=== PATIENT | male | born 1940 | race Caucasian/White ===

== ENCOUNTER 2020-10-24 06:38 | Outpatient (REF) | payer MEDICARE, SELFPAY ==
[2020-10-24 07:08] LABS: Red Cell Distribution Width 13.2 % (11.0-16.0)
[2020-10-24 07:10] LABS: Hematocrit 44.6 % (42-52); Mean Corpuscular HGB Conc 33.6 g/dl (31.0-36.0); Mean Corpuscular Hemoglobin 31.8 pg (27.0-33.0); Mean Corpuscular Volume 94.5 fL (80-98); Mean Platelet Volume 10.7 fL (9.4-12.4); Red Blood Count 4.72 X10*6/uL (4.60-5.80); White Blood Count 5.4 X10*3/uL (4.8-10.8)
[2020-10-24 07:13] LABS: Platelet Count 91 X10*3/uL (160-400)
[2020-10-24 07:14] LABS: Estimated Average Glucose 166 mg/dL; Hemoglobin A1c % 7.4 %
[2020-10-24 07:35] LABS: Alanine Aminotransferase 17 U/L (0-40); Albumin Level 3.9 g/dL (3.5-5.0); Alkaline Phosphatase 63 U/L (39-117); Anion Gap 11 (12-20); Aspartate Amino Transferase 19 U/L (5-37); Bilirubin Total 1.1 mg/dL (0.0-1.0); Blood Urea Nitrogen 25 mg/dL (9-16); Calcium 8.5 mg/dL (8.4-10.2); Carbon Dioxide 32 mmol/L (22-29); Chloride 101 mmol/L (96-108); Cholesterol 104 mg/dL; Estimated Glomerular Filt Rate > 60; Glucose Fasting 162 mg/dL (60-99); HDL Cholesterol 30 mg/dL; LDL Cholesterol Calculated 57 mg/dl; Potassium 3.8 mmol/l (3.3-5.1); Sodium 140 mmol/L (135-145); Total Protein 5.8 g/dL (6.5-8.0); Triglycerides 87 mg/dL
[2020-10-24 07:44] LABS: Appearance Urine CLEAR; Color Urine YELLOW; Glucose Urine UA NEG (NEG); Leukocyte Esterase Urine NEG (NEG); Nitrite Urine NEG (NEG); Specific Gravity - Urine 1.025 (1.005-1.025); Urine Blood TRACE (NEG); Urine Ketones NEG (NEG); Urine Protein NEG (NEG-TRACE)
[2020-10-24 07:50] LABS: Mucus Urine TRACE /LPF; RBC Urine 0-2 /HPF (0); Squamous Epithelial Cell Urine TRACE /LPF; WBC Urine 0 /HPF (0-4)
[2020-10-24 07:57] LABS: Thyroid Stimulating Hormone 0.93 uIU/mL (0.32-4.0)
== END 2020-10-24 06:39 | disposition home or self-care (01) ==
LOC: HO.LAB 06:38
PROVIDERS: Visit Provider Internal Medicine
DX: I10 Essential (primary) hypertension (principal); E78.00 Pure hypercholesterolemia, unspecified; E11.42 Type 2 diabetes mellitus with diabetic polyneuropathy; M48.061 Spinal stenosis, lumbar region without neurogenic claudication; Z79.4 Long term (current) use of insulin; Z85.46 Personal history of malignant neoplasm of prostate
CPT/HCPCS: 36415; 80053; 80061; 81001; 83036; 84443; 85027

== ENCOUNTER 2021-04-19 06:22 | Outpatient (REF) | payer MEDICARE, SELFPAY ==
[2021-04-19 07:10] LABS: Glucose Urine UA NEG (NEG); Leukocyte Esterase Urine NEG (NEG); Nitrite Urine NEG (NEG); PH 5.5 (5.0-8.0); Urine Blood NEG (NEG); Urine Ketones NEG (NEG); Urine Protein NEG (NEG-TRACE)
[2021-04-19 07:11] LABS: Appearance Urine HAZY; Color Urine YELLOW
[2021-04-19 07:11] LABS: Imm Gran Abs Auto 0.02 X10*3/uL (0.00-0.03); Imm Gran Pct Auto 0.3 % (0.0-0.4); MANUAL DIFF FLAG SCAN; PLT CLUMP 1; Red Cell Distribution Width 12.8 % (11.0-16.0); SCAN SMEAR FLAG 1
[2021-04-19 07:12] LABS: Basophils Percent Auto 0.7 % (0-2); Eosinophils Absolute Auto 0.2 X10*3/uL (0.0-0.4); Eosinophils Percent Auto 4.1 % (0-4); Hematocrit 45.6 % (42-52); Hemoglobin 15.6 g/dl (14.0-18.0); Lymphocytes Absolute Auto 1.1 X10*3/uL (1.2-4.9); Lymphocytes Percent Auto 18.8 % (20-40); Mean Corpuscular HGB Conc 34.2 g/dl (31.0-36.0); Mean Corpuscular Hemoglobin 32.2 pg (27.0-33.0); Mean Corpuscular Volume 94.2 fL (80-98); Mean Platelet Volume 11.3 fL (9.4-12.4); Monocytes Absolute Auto 0.5 X10*3/uL (0.1-1.2); Monocytes Percent Auto 8.4 % (2-11); Neutrophils Percent Auto 67.7 % (45-73); Red Blood Count 4.84 X10*6/uL (4.60-5.80); White Blood Count 5.9 X10*3/uL (4.8-10.8)
[2021-04-19 07:17] LABS: Estimated Average Glucose 157 mg/dL; Hemoglobin A1c % 7.1 %; Platelet Count 97 X10*3/uL (160-400)
[2021-04-19 07:32] LABS: Alanine Aminotransferase 19 U/L (0-40); Alkaline Phosphatase 66 U/L (39-117); Anion Gap 15 (12-20); Aspartate Amino Transferase 27 U/L (5-37); Bilirubin Total 1.6 mg/dL (0.0-1.0); Blood Urea Nitrogen 22 mg/dL (9-16); Carbon Dioxide 29 mmol/L (22-29); Chloride 101 mmol/L (96-108); Cholesterol 98 mg/dL; Estimated Glomerular Filt Rate > 60; Glucose Random 139 mg/dL (60-115); HDL Cholesterol 29 mg/dL; LDL Cholesterol Calculated 55 mg/dl; Potassium 4.3 mmol/L (3.3-5.1); Sodium 141 mmol/L (135-145); Triglycerides 73 mg/dL
[2021-04-19 08:05] LABS: Creatinine Urine 207.09 mg/dL; Microalbum/Creatinine Ratio Ur 5.3 ug/mg cr
[2021-04-19 08:28] LABS: Vitamin B12 483 pg/mL (200-900)
== END 2021-04-19 06:23 | disposition home or self-care (01) ==
LOC: HO.LAB 06:22
PROVIDERS: Absent Provider Internal Medicine Interventional Cardiology; PCP Internal Medicine; Visit Provider Internal Medicine
DX: E11.42 Type 2 diabetes mellitus with diabetic polyneuropathy (principal); D69.6 Thrombocytopenia, unspecified; C61 Malignant neoplasm of prostate; I25.10 Atherosclerotic heart disease of native coronary artery without angina pectoris; Z79.4 Long term (current) use of insulin
CPT/HCPCS: 36415; 80053; 80061; 81003; 82043; 82607; 83036; 84443; 85025

== ENCOUNTER 2022-02-16 17:28 | Emergency (ER) | payer MEDICARE, SELFPAY ==
--- NOTE | ~2022-02-16 | XR_ITS ---
EXAMINATION: XR CHEST CLINICAL INFORMATION: Flu + COMPARISON: Chest x-ray 04/14/2014 TECHNIQUE: Frontal portable view of the chest was obtained. 7:02 PM FINDINGS: Lungs are clear. No pulmonary vascular congestion. There is no pleural effusion. The heart size is normal. The cardiac and mediastinal contours are normal. There are calcifications of the thoracic aorta. There are multilevel degenerative changes of dorsal spine. XR/XR chest 1V IMPRESSION: Unremarkable examination.
[2022-02-16 17:32] VITALS: BP 137/53; PULSE 110; RESP 18; TEMP 38.3; O2SAT 96; BMI 28.3
[2022-02-16 18:00] VITALS: BP 129/52; PULSE 96; RESP 16; TEMP 38.1; O2SAT 95
[2022-02-16 18:05] LABS: Anion Gap 11 (12-20); Blood Urea Nitrogen 22 mg/dL (9-16); Calcium 8.5 mg/dL (8.4-10.2); Carbon Dioxide 30 mmol/L (22-29); Chloride 98 mmol/L (96-108); Creatinine Clr Calc Pharmacy 36.7; Estimated Glomerular Filt Rate 46; Glucose Random 254 mg/dL (60-115); Potassium 4.1 mmol/L (3.3-5.1); Sodium 135 mmol/L (135-145)
[2022-02-16 18:08] LABS: COVID-19 Test Negative (Negative); IDNOW Serial# 16C4AD1C; Influenza A Positive (Negative); Influenza B2 Negative (Negative)
[2022-02-16 18:09] LABS: PLT CLUMP 1; Red Cell Distribution Width 13.2 % (11.0-16.0); SCAN SMEAR FLAG 1
[2022-02-16 18:11] LABS: Basophils Percent Auto 0.3 % (0-2); Eosinophils Percent Auto 0.1 % (0-4); Hematocrit 45.7 % (42.0-52.0); Hemoglobin 15.4 g/dl (14.0-18.0); Imm Gran Abs Auto 0.02 X10*3/uL (0.00-0.03); Imm Gran Pct Auto 0.3 % (0.0-0.4); Lymphocytes Absolute Auto 0.5 X10*3/uL (1.2-4.9); Lymphocytes Percent Auto 7.7 % (20-40); MANUAL DIFF FLAG SCAN; Mean Corpuscular HGB Conc 33.7 g/dl (31.0-36.0); Mean Platelet Volume 11.7 fL (9.4-12.4); Monocytes Absolute Auto 0.7 X10*3/uL (0.1-1.2); Monocytes Percent Auto 9.7 % (2-11); Neutrophils Absolute Auto 5.8 x10*3/uL (2.0-8.3); Neutrophils Percent Auto 81.9 % (45-73); Red Blood Count 4.81 X10*6/uL (4.60-5.80)
[2022-02-16 18:23] LABS: Platelet Count 77 X10*3/uL (160-400)
[2022-02-16 18:27] LABS: SLIDE REVIEW VERIFIED
[2022-02-16] MEDS: Acetaminophen 325 MG TABLET 650 MG PO (19:47)
[2022-02-16] MEDS: ondansetron HCL 4 MG/2 ML VIAL IVPUSH (19:51)
[2022-02-16] MEDS: 0.9 % Sodium Chloride 1,000 ML 999 ML IV (19:52)
--- NOTE | 2022-02-16 19:57 | ED_ITS ---
HPI - General Adult General Chief complaint: General Medical Stated complaint: flu symptoms, pt. feels cold Time Seen by Provider: 02/16/22 18:55 Source: patient and family Mode of arrival: ambulatory Limitations: no limitations History of Present Illness HPI narrative: Patient only been vaccinated against COVID and flu been having nasal congestion nausea dry cough and fever with body aches for last 3 days no vomiting no diarrhea no abdominal pain Related Data Allergies Allergy/AdvReac Type Severity Reaction Status Date / Time No Known Allergies Allergy Verified 02/16/22 17:31 Review of Systems Review of Systems: Yes all other systems are reviewed and are negative [facility] Social History Social History Advance Directives: No Physical Exam ED Vital Signs: Vital Signs - 24 hr 02/16/22 17:32 02/16/22 18:00 02/16/22 20:49 Temperature 101 F H 100.5 F H 98.5 F Pulse Rate 110 H 96 77 Respiratory Rate 18 16 16 Blood Pressure 137/53 L 129/52 L Pulse Oximetry 96 95 94 BMI result Body Mass Index 28.3 Appearance: Alert. Oriented X3. No acute distress. Eyes: No pallor/ icterus ENT: Pharynx normal. Oral Mucosa moist Neck: Normal inspection. Neck supple. CVS: Normal heart rate and rhythm. Pulses normal. Respiratory: No respiratory distress. Equal air entry bilateral, no wheezing/rales/rhonchi Abdomen: Soft and nontender. Bowel sounds are present, no mass palpable, no CVA tenderness Skin: Skin warm and dry. Normal skin color. Normal skin turgor. Extremities: No lower extremity edema. No calf tenderness Neuro: Oriented X 3. No motor deficit. Medical Decision Making [facility] Narrative Medical decision making narrative: Patient with influenza a with dehydration slight Xavi I received IV fluids feeling much better chest x-ray negative for infiltrate will discharge patient home Lab Data Lab results reviewed: Yes I reviewed the patient's lab results. Result diagrams: 02/16/22 17:41 02/16/22 17:41 Labs: Lab Results 02/16/22 02/16/22 02/16/22 Range/Units 17:41 17:41 17:41 WBC 7.0 (4.8-10.8) X10*3/uL RBC 4.81 (4.60-5.80) X10*6/uL Hgb 15.4 (14.0-18.0) g/dl Hct 45.7 (42.0-52.0) % MCV 95.0 (80.0-98.0) fL MCH 32.0 (27.0-33.0) pg MCHC 33.7 (31.0-36.0) g/dl RDW 13.2 (11.0-16.0) % Plt Count 77 L (160-400) X10*3/uL MPV 11.7 (9.4-12.4) fL Immature Gran % (Auto) 0.3 (0.0-0.4) % Neut % (Auto) 81.9 H (45-73) % Lymph % (Auto) 7.7 L (20-40) % [place] % (Auto) 9.7 (2-11) % Eos % (Auto) 0.1 (0-4) % Baso % (Auto) 0.3 (0-2) % Lymph # (Auto) 0.5 L (1.2-4.9) X10*3/uL [place] # (Auto) 0.7 (0.1-1.2) X10*3/uL Eos # (Auto) 0.0 (0.0-0.4) X10*3/uL Baso # (Auto) 0.0 (0.0-0.2) X10*3/uL Abs Immat Gran (auto) 0.02 (0.00-0.03) X10*3/uL Absolute Neuts (auto) 5.8 (2.0-8.3) x10*3/uL Absolute Nucleated RBC 0.000 (0.0-0.012) X10*3/uL Nucleated RBC % (auto) 0.0 (0.0-0.2) /100WBC Smear Tech's Comments VERIFIED Sodium 135 (135-145) mmol/L Potassium 4.1 (3.3-5.1) mmol/L Chloride 98 (96-108) mmol/L Carbon Dioxide 30 H (22-29) mmol/L Anion Gap 11 L (12-20) BUN 22 H (9-16) mg/dL Creatinine 1.46 H (0.5-1.4) mg/dL Estim Creat Clear Calc 36.7 Estimated GFR 46 Random Glucose 254 H D (60-115) mg/dL Calcium 8.5 (8.4-10.2) mg/dL COVID-19 (JOANN) (Negative) COVID-19 Clin Com Influenza Type A (HIRAL) Positive A (Negative) Influenza Type B (HIRAL) Negative (Negative) Influenza A & B Note See Note 02/16/22 Range/Units 17:41 WBC (4.8-10.8) X10*3/uL RBC (4.60-5.80) X10*6/uL Hgb (14.0-18.0) g/dl Hct (42.0-52.0) % MCV (80.0-98.0) fL MCH (27.0-33.0) pg MCHC (31.0-36.0) g/dl RDW (11.0-16.0) % Plt Count (160-400) X10*3/uL MPV (9.4-12.4) fL Immature Gran % (Auto) (0.0-0.4) % Neut % (Auto) (45-73) % Lymph % (Auto) (20-40) % [place] % (Auto) (2-11) % Eos % (Auto) (0-4) % Baso % (Auto) (0-2) % Lymph # (Auto) (1.2-4.9) X10*3/uL [place] # (Auto) (0.1-1.2) X10*3/uL Eos # (Auto) (0.0-0.4) X10*3/uL Baso # (Auto) (0.0-0.2) X10*3/uL Abs Immat Gran (auto) (0.00-0.03) X10*3/uL Absolute Neuts (auto) (2.0-8.3) x10*3/uL Absolute Nucleated RBC (0.0-0.012) X10*3/uL Nucleated RBC % (auto) (0.0-0.2) /100WBC Smear Tech's Comments Sodium (135-145) mmol/L Potassium (3.3-5.1) mmol/L Chloride (96-108) mmol/L Carbon Dioxide (22-29) mmol/L Anion Gap (12-20) BUN (9-16) mg/dL Creatinine (0.5-1.4) mg/dL Estim Creat Clear Calc Estimated GFR Random Glucose (60-115) mg/dL Calcium (8.4-10.2) mg/dL COVID-19 (JOANN) Negative (Negative) COVID-19 Clin Com See Note Influenza Type A (HIRAL) (Negative) Influenza Type B (HIRAL) (Negative) Influenza A & B Note Discharge Plan Discharge Clinical Impression: Influenza A Patient Disposition: Home, Self-Care Instructions: Influenza (ED) Additional Instructions: Keep hydrated drink plenty of fluids Tylenol/ Motrin for fever Follow up with PCP not better Interventions: ED Discharge Assessment Last Done: 02/16/22 22:04 Discharge Date/Time: 02/16/22 22:05
[2022-02-16 20:49] VITALS: PULSE 77; RESP 16; TEMP 36.9; O2SAT 94
== END 2022-02-16 22:05 | disposition home or self-care (01) ==
PROVIDERS: Emergency Provider Internal Medicine
DX: J11.1 Influenza due to unidentified influenza virus with other respiratory manifestations (principal); R50.9 Fever, unspecified; Z20.822 Contact with and (suspected) exposure to COVID-19
CPT/HCPCS: 36415; 71045; 80048; 85025; 87502; 87635; 96361; 96374; 99284; J2405

== ENCOUNTER 2022-04-14 07:00 | Outpatient (REF) | payer MEDICARE, SELFPAY ==
[2022-04-14 07:25] LABS: MANUAL DIFF FLAG NO
[2022-04-14 07:44] LABS: Basophils Percent Auto 0.8 % (0-2); Eosinophils Absolute Auto 0.2 X10*3/uL (0.0-0.4); Hematocrit 45.4 % (42.0-52.0); Hemoglobin 15.1 g/dl (14.0-18.0); Imm Gran Abs Auto 0.01 X10*3/uL (0.00-0.03); Imm Gran Pct Auto 0.2 % (0.0-0.4); Lymphocytes Percent Auto 19.3 % (20-40); Mean Corpuscular HGB Conc 33.3 g/dl (31.0-36.0); Mean Corpuscular Hemoglobin 31.4 pg (27.0-33.0); Mean Corpuscular Volume 94.4 fL (80.0-98.0); Mean Platelet Volume 11.9 fL (9.4-12.4); Monocytes Absolute Auto 0.6 X10*3/uL (0.1-1.2); Monocytes Percent Auto 11.2 % (2-11); Neutrophils Absolute Auto 3.5 x10*3/uL (2.0-8.3); Neutrophils Percent Auto 65.5 % (45-73); Red Blood Count 4.81 X10*6/uL (4.60-5.80); Red Cell Distribution Width 13.8 % (11.0-16.0); White Blood Count 5.3 X10*3/uL (4.8-10.8)
[2022-04-14 07:49] LABS: Platelet Count 97 X10*3/uL (160-400)
[2022-04-14 07:55] LABS: Appearance Urine CLEAR; Color Urine YELLOW; Glucose Urine UA NEG (NEG); Leukocyte Esterase Urine NEG (NEG); Nitrite Urine NEG (NEG); Specific Gravity - Urine 1.015 (1.005-1.025); Urine Blood NEG (NEG); Urine Ketones NEG (NEG); Urine Protein NEG (NEG-TRACE)
[2022-04-14 08:05] LABS: WBC Urine 0-2 /HPF (0-4)
[2022-04-14 08:06] LABS: RBC Urine 0 /HPF (0); Renal Epithelial Cells Urine TRACE /LPF
[2022-04-14 08:12] LABS: Estimated Average Glucose 157 mg/dL; Hemoglobin A1c % 7.1 %
[2022-04-14 08:17] LABS: Creatinine Urine 129.05 mg/dL; Microalbum/Creatinine Ratio Ur 4.6 ug/mg cr
[2022-04-14 08:18] LABS: Alanine Aminotransferase 17 U/L (0-40); Albumin Level 3.7 g/dL (3.5-5.0); Alkaline Phosphatase 68 U/L (39-117); Anion Gap 9 (12-20); Aspartate Amino Transferase 21 U/L (5-37); Bilirubin Total 0.9 mg/dL (0.0-1.0); Blood Urea Nitrogen 20 mg/dL (9-16); Carbon Dioxide 32 mmol/L (22-29); Chloride 102 mmol/L (96-108); Cholesterol 97 mg/dL; Estimated Glomerular Filt Rate 58; Glucose Fasting 139 mg/dL (60-99); HDL Cholesterol 31 mg/dL; LDL Cholesterol Calculated 56 mg/dl; Potassium 3.8 mmol/L (3.3-5.1); Sodium 139 mmol/L (135-145); Total Protein 5.8 g/dL (6.5-8.0); Triglycerides 51 mg/dL
[2022-04-14 08:32] LABS: Free T4 (Free Thyroxine) 0.99 ng/dL (0.71-1.85); Thyroid Stimulating Hormone 1.15 uIU/mL (0.32-4.0)
[2022-04-16 06:33] LABS: Folate 10.3 ng/mL (> or = 4.0); Vitamin B12 427 pg/mL (200-900)
== END 2022-04-14 07:01 | disposition home or self-care (01) ==
LOC: HO.LAB 07:00
PROVIDERS: PCP Internal Medicine; Visit Provider Internal Medicine
DX: E11.42 Type 2 diabetes mellitus with diabetic polyneuropathy (principal); D69.6 Thrombocytopenia, unspecified; I25.10 Atherosclerotic heart disease of native coronary artery without angina pectoris; I10 Essential (primary) hypertension; E78.00 Pure hypercholesterolemia, unspecified; R35.1 Nocturia; R41.3 Other amnesia; Z79.4 Long term (current) use of insulin
CPT/HCPCS: 36415; 80053; 80061; 81001; 82043; 82607; 82746; 83036; 84439; 84443; 85025; 87086

== ENCOUNTER 2022-07-20 07:58 | Outpatient (REF) | payer MEDICARE, SELFPAY ==
[2022-07-20 08:14] LABS: MANUAL DIFF FLAG NO
[2022-07-20 08:59] LABS: Basophils Percent Auto 0.7 % (0-2); Eosinophils Absolute Auto 0.1 X10*3/uL (0.0-0.4); Eosinophils Percent Auto 2.3 % (0-4); Hematocrit 44.2 % (42.0-52.0); Hemoglobin 15.2 g/dl (14.0-18.0); Imm Gran Abs Auto 0.02 X10*3/uL (0.00-0.03); Imm Gran Pct Auto 0.4 % (0.0-0.4); Lymphocytes Percent Auto 17.4 % (20-40); Mean Corpuscular HGB Conc 34.4 g/dl (31.0-36.0); Mean Corpuscular Hemoglobin 32.5 pg (27.0-33.0); Mean Corpuscular Volume 94.4 fL (80.0-98.0); Monocytes Absolute Auto 0.5 X10*3/uL (0.1-1.2); Monocytes Percent Auto 9.5 % (2-11); Neutrophils Absolute Auto 3.9 x10*3/uL (2.0-8.3); Neutrophils Percent Auto 69.7 % (45-73); Platelet Count 99 X10*3/uL (160-400); Red Blood Count 4.68 X10*6/uL (4.60-5.80); Red Cell Distribution Width 13.2 % (11.0-16.0); White Blood Count 5.6 X10*3/uL (4.8-10.8)
[2022-07-20 09:05] LABS: Estimated Average Glucose 131 mg/dL; Hemoglobin A1c % 6.2 %
[2022-07-20 09:32] LABS: Anion Gap 14 (12-20); Blood Urea Nitrogen 21 mg/dL (9-16); Calcium 8.7 mg/dL (8.4-10.2); Carbon Dioxide 30 mmol/L (22-29); Chloride 99 mmol/L (96-108); Estimated Glomerular Filt Rate 53; Glucose Random 200 mg/dL (60-115); Sodium 139 mmol/L (135-145)
== END 2022-07-20 07:59 | disposition home or self-care (01) ==
LOC: HO.LAB 07:58
PROVIDERS: PCP Internal Medicine; Visit Provider Internal Medicine
DX: E11.42 Type 2 diabetes mellitus with diabetic polyneuropathy (principal); I10 Essential (primary) hypertension; Z79.4 Long term (current) use of insulin
CPT/HCPCS: 36415; 80048; 83036; 85025

== ENCOUNTER 2022-11-05 08:56 | Outpatient (REF) | payer MEDICARE, SELFPAY ==
--- NOTE | ~2022-11-05 | CT_ITS ---
EXAMINATION: CT CHEST CT ABDOMEN AND PELVIS WITH IV CONTRAST CLINICAL INFORMATION: Weight loss, decreased appetite. COMPARISON: None TECHNIQUE: 5 mm thin axial and reformatted 3 mm thin sagittal and coronal images of chest, abdomen pelvis were obtained following IV 85 mL Omnipaque 350. DLP 480. This CT examination was performed using dose optimization technique as appropriate, variously including the following: Automated exposure control Adjustment of MA and/or KV according to patient size(this includes techniques or standardized protocols for targeted exams where dose is matched to indication/reason for exam; extremities or head. Use of iterative reconstruction techniques. FINDINGS: CHEST: Lungs: The lungs are well-expanded and clear of acute pneumonic consolidation. There is no pulmonary nodule, mass or ground-glass density. There is no atelectatic changes either. Mediastinum: The thyroid lobes are symmetric and normal. The central trachea and the bronchi are widely patent. The heart size and the great vessels are normal caliber. No abnormal size mediastinal or hilar lymph nodes seen. There is no pericardial effusion. There are moderate coronary artery calcifications present. Pleura: There is no pleural thickening, calcification or effusion. Axilla: There are small shotty lymph nodes seen in the bilateral axilla. The chest wall is unremarkable. ABDOMEN AND PELVIS: Liver, Ducts And Gallbladder: The liver is normal size, contour and homogeneous density. No focal lesion or intrahepatic ductal dilatation seen. The gallbladder is nondistended without radiopaque calculi. Spleen: Unremarkable. Pancreas: Unremarkable. Adrenal Glands: Unremarkable. Kidneys And Ureter: Both kidney nephrograms are normal size, shape and position. A 2 mm radiopaque calculi suspected in the lower pole calyx, left kidney. No additional radiopaque calculi seen. There is no enhancing renal mass, cyst or hydronephrosis. Bilateral extrarenal kidney pelvises are noted. Focal cortical thinning, lower pole right kidney, is noted. Abdominal Wall: Unremarkable. Gi Tract: Oral contrast opacified small bowel loops are normal. There is stool and diverticula seen throughout the colon consistent with mild constipation without diverticulitis. Appendix is not visualized. Lymphovascular Structures: There is arthrosclerotic calcification of abdominal aorta without aneurysmal dilatation. No abnormal size retroperitoneal lymph nodes seen. Pelvis: The bladder is nondistended. The prostate gland is mildly prominent with jeanne seen along the posterior margin. Osseous Structures: No aggressive lytic or sclerotic process seen. There is L3, L4 and L5 posterior hardware for posterior fusion. Grade 1 retrolisthesis L3 over L4 is noted. There is moderate ventral spondylosis, lower dorsal spine. CT/CT abdomen pelvis w IV con IMPRESSION: 1. No acute process seen in the chest, abdomen pelvis. 2. No pulmonary nodule, mass or abnormal chest lymphadenopathy. 3. Moderate constipation. Colonic diverticulosis without diverticulitis. Normal appendix.
[2022-11-05] MEDS: iohexoL 350 MG/ML 100 ML INFUS..BTL IV (11:51)
[2022-11-05] MEDS: Barium Sulfate Oral (Berry) 450 ML ORAL.SUSP 900 ML PO (11:51)
== END 2022-11-05 08:57 | disposition home or self-care (01) ==
LOC: HO.CT 08:56
PROVIDERS: PCP Internal Medicine; Visit Provider Internal Medicine
DX: R63.0 Anorexia (principal); R63.4 Abnormal weight loss
CPT/HCPCS: 71260; 74177; Q9967

== ENCOUNTER 2023-01-07 06:15 | Outpatient (REF) | payer MEDICARE, SELFPAY ==
[2023-01-07 06:23] LABS: MANUAL DIFF FLAG NO
[2023-01-07 07:51] LABS: Basophils Absolute Auto 0.1 X10*3/uL (0.0-0.2); Eosinophils Absolute Auto 0.2 X10*3/uL (0.0-0.4); Eosinophils Percent Auto 3.4 % (0-4); Hematocrit 48.6 % (42.0-52.0); Hemoglobin 16.1 g/dl (14.0-18.0); Imm Gran Abs Auto 0.02 X10*3/uL (0.00-0.03); Imm Gran Pct Auto 0.3 % (0.0-0.4); Lymphocytes Absolute Auto 1.2 X10*3/uL (1.2-4.9); Lymphocytes Percent Auto 19.2 % (20-40); Mean Corpuscular HGB Conc 33.1 g/dl (31.0-36.0); Mean Corpuscular Hemoglobin 31.7 pg (27.0-33.0); Mean Corpuscular Volume 95.7 fL (80.0-98.0); Mean Platelet Volume 11.7 fL (9.4-12.4); Monocytes Absolute Auto 0.7 X10*3/uL (0.1-1.2); Monocytes Percent Auto 10.8 % (2-11); Neutrophils Absolute Auto 4.1 x10*3/uL (2.0-8.3); Neutrophils Percent Auto 65.3 % (45-73); Platelet Count 102 X10*3/uL (160-400); Red Blood Count 5.08 X10*6/uL (4.60-5.80); White Blood Count 6.2 X10*3/uL (4.8-10.8)
[2023-01-07 07:54] LABS: Appearance Urine Clear; Color Urine Yellow; Glucose Urine UA Negative (Negative); Leukocyte Esterase Urine Negative (Negative); Nitrite Urine Negative (Negative); Specific Gravity - Urine 1.015 (1.005-1.025); Urine Blood Negative (Negative); Urine Ketones Negative (Negative); Urine Protein Negative (Neg-Trace)
[2023-01-07 07:59] LABS: Estimated Average Glucose 148 mg/dL; Hemoglobin A1c % 6.8 %
[2023-01-07 08:26] LABS: Alanine Aminotransferase 19 U/L (0-40); Albumin Level 4.1 g/dL (3.5-5.0); Alkaline Phosphatase 75 U/L (39-117); Anion Gap 14 (12-20); Aspartate Amino Transferase 20 U/L (5-37); Blood Urea Nitrogen 23 mg/dL (9-16); Calcium 9.1 mg/dL (8.4-10.2); Carbon Dioxide 30 mmol/L (22-29); Chloride 102 mmol/L (96-108); Cholesterol 139 mg/dL; Estimated Glomerular Filt Rate 58; Glucose Random 76 mg/dL (60-115); HDL Cholesterol 39 mg/dL; LDL Cholesterol Calculated 87 mg/dl; Potassium 3.9 mmol/L (3.3-5.1); Sodium 142 mmol/L (135-145); Total Protein 6.1 g/dL (6.5-8.0); Triglycerides 65 mg/dL
[2023-01-07 08:46] LABS: Thyroid Stimulating Hormone 1.43 uIU/mL (0.32-4.0)
== END 2023-01-07 06:16 | disposition home or self-care (01) ==
LOC: HO.LAB 06:15
PROVIDERS: PCP Internal Medicine; Visit Provider Internal Medicine
DX: I10 Essential (primary) hypertension (principal); I25.10 Atherosclerotic heart disease of native coronary artery without angina pectoris; R63.4 Abnormal weight loss; D69.6 Thrombocytopenia, unspecified; E11.42 Type 2 diabetes mellitus with diabetic polyneuropathy; Z79.4 Long term (current) use of insulin
CPT/HCPCS: 36415; 80053; 80061; 81003; 83036; 84443; 85025

== ENCOUNTER 2023-02-19 07:50 | Emergency (ER) | payer MEDICARE, SELFPAY ==
--- NOTE | 2023-02-19 | ECG_ITS ---
Test Reason : QTC Blood Pressure : / mmHG Vent. Rate : 074 BPM Atrial Rate : 074 BPM P-R Int : 248 ms QRS Dur : 106 ms QT Int : 428 ms P-R-T Axes : 011 035 078 degrees QTc Int : 475 ms Sinus rhythm with sinus arrhythmia with 1st degree A-V block with occasional Premature ventricular complexes Inferior infarct , age undetermined Abnormal ECG No previous ECGs available Referred By: Rere Martinez Electronically Signed By:LOI MARTINEZ
--- NOTE | ~2023-02-19 | CT_ITS ---
EXAMINATION: NONCONTRAST HEAD CT NONCONTRAST CERVICAL SPINE CT INDICATION INFORMATION: Fall COMPARISON: 02/19/2023 TECHNIQUE: Separate noncontrast CT examinations of the head and cervical spine were performed. Coronal and sagittal images were created for each examination at the technologist workstation. This CT examination was performed using dose optimization techniques as appropriate, variously including the following: *Automated exposure control *Adjustment of mA and/or kV according to patient size (this includes techniques or standardized protocols for targeted exams where dose is matched to indication/reason for exam; i.e. extremities or head) *Use of iterative reconstruction technique DLP: 1097 mGy-cm FINDINGS: Head: There is no evidence of acute intracranial hemorrhage or territorial infarction. No abnormal mass effect or midline shift is seen. Aguilera to white matter differentiation is well preserved. No extra-axial fluid collections are identified. No hydrocephalus. Proportional prominence of the ventricles and sulcal spaces is consistent with moderate volume loss. Patchy periventricular and deep white matter hypoattenuation is consistent with moderate small vessel ischemic changes. No acute osseous or soft tissue abnormality. The mastoid air cells and visualized portions of the paranasal sinuses are well aerated. Cervical spine: There is anatomic alignment of the vertebral bodies and posterior elements. The atlantoaxial and atlantooccipital articulations are intact. Vertebral body heights are maintained. There is multilevel intervertebral disc space narrowing with endplate osteophyte formation and facet arthropathy. Calcifications along the posterior longitudinal ligament and at the discs. No evidence of acute fracture. No prevertebral soft tissue swelling. Mild emphysema noted at the lung apices.. The thyroid gland is unremarkable. CT/CT cervical spine wo IV con IMPRESSION: 1. No acute intracranial finding. Chronic volume loss with small vessel ischemic change. 2. No acute fracture or malalignment of the cervical spine. Moderate degenerative changes.
--- NOTE | ~2023-02-19 | XR_ITS ---
EXAMINATION: XR CHEST CLINICAL INFORMATION: Altered mental status, low blood pressure. COMPARISON: 02/16/2022 chest radiograph. TECHNIQUE: Frontal view of the chest was obtained. FINDINGS: No significant abnormality is noted involving the heart, lungs, mediastinum, bony thorax or soft tissues. XR/XR chest 1V IMPRESSION: No acute cardiopulmonary process.
--- NOTE | ~2023-02-19 | CT_ITS ---
EXAMINATION: CT HEAD WITHOUT CONTRAST CLINICAL INFORMATION: Altered mental status COMPARISON: None available. TECHNIQUE: Contiguous axial imaging was performed from the skull base to vertex without intravenous administration of contrast. This CT examination was performed using dose optimization techniques as appropriate, variously including the following: *Automated exposure control *Adjustment of mA and/or kV according to patient size (this includes techniques or standardized protocols for targeted exams where dose is matched to indication/reason for exam; i.e. extremities or head) *Use of iterative reconstruction technique DLP: 640 mGy-cm FINDINGS: There is no evidence of acute intracranial hemorrhage or territorial infarction. No abnormal mass effect or midline shift is seen. Aguilera to white matter differentiation is well preserved. No extra-axial fluid collections are identified. Commensurate prominence of the ventricles and sulci is compatible with generalized parenchymal volume loss. There is periventricular and subcortical white matter hypoattenuation, most likely representing microangiopathic disease . No acute calvarial fracture.. Paranasal sinuses and mastoid air cells are well-aerated. CT/CT head/brain wo IV con IMPRESSION: No CT evidence of acute intracranial hemorrhage or edematous large vessel territorial infarction. Chronic changes as detailed above. Etiology of the patient's symptoms is not been determined by noncontrast CT. Further evaluation with CTA or MRI as clinically warranted.
[2023-02-19 07:55] VITALS: BP 129/62; PULSE 77; RESP 18; TEMP 36.6; O2SAT 96
--- NOTE | 2023-02-19 08:03 | ED_ITS ---
HPI - Psych General Chief Complaint: General Medical <Reina Wells NP - Last Filed: 02/19/23 18:16> Stated Complaint: section 12 <Reina Wells NP - Last Filed: 02/19/23 18:16> Time Seen by Provider: 02/19/23 08:02 <Reina Wells NP - Last Filed: 02/19/23 18:16> Source: patient and EMS <Reina Wells NP - Last Filed: 02/19/23 18:16> Mode of arrival: EMS <Reina Wells NP - Last Filed: 02/19/23 18:16> Limitations: no limitations <Reina Wells NP - Last Filed: 02/19/23 18:16> History of Present Illness HPI Narrative: 82 yo male with a history of DM, HTN, HLD, GERD, dementia here on a section 12 with concern from family that patient is wandering and has been missing several times. They feel they cannot care for him at home. Here with /daughter who reports patient has been more delirious, paranoid over the last week, sleeping in his car and missing. His PCP is managing his dementia and he is on wellbutrin only for mental health. He has been intermittently compliant with his home medications. <Reina Wells NP - Last Filed: 02/19/23 18:16> Related Data Home Medications: Home Medications Medication Instructions Recorded Confirmed atorvastatin 80 mg tablet 80 mg PO BEDTIME 02/19/23 02/19/23 bupropion HCl 150 mg tablet,12 hr 150 mg PO DAILY 02/19/23 02/19/23 sustained-release chlorthalidone 25 mg tablet 12.5 mg PO DAILY 02/19/23 02/19/23 insulin aspart U-100 100 unit/mL 6 - 10 unit subcut TID 02/19/23 02/19/23 (3 mL) subcutaneous pen (Novolog FlexPen U-100 Insulin aspart) insulin detemir U-100 100 unit/mL 10 unit subcut BEDTIME 02/19/23 02/19/23 (3 mL) subcutaneous pen (Levemir FlexTouch U-100 Insulin) lisinopril 40 mg tablet 40 mg PO DAILY 02/19/23 02/19/23 metoprolol tartrate 50 mg tablet 50 mg PO BID 02/19/23 02/19/23 omeprazole 20 mg capsule,delayed 20 mg PO DAILY@0630 02/19/23 02/19/23 release terazosin 2 mg capsule 2 mg PO BEDTIME 02/19/23 02/19/23 <Reina Wells NP - Last Filed: 02/19/23 18:16> Allergies/Adverse Reactions: Allergies Allergy/AdvReac Type Severity Reaction Status Date / Time No Known Allergies Allergy Verified 02/16/22 17:31 <Reina Wells NP - Last Filed: 02/19/23 18:16> Review of Systems Review of Systems: Yes all other systems are reviewed and are negative <Reina Wells NP - Last Filed: 02/19/23 18:16> Constitutional: Constitutional: Reports no additional constitutional complaints, Denies body ache(s), Denies chills, Denies fever(s), Denies headache(s) and Denies weakness <Reina Wells NP - Last Filed: 02/19/23 18:16> Eyes: Eyes: Reports no additional eye complaints and Denies change in vision <Reina Wells NP - Last Filed: 02/19/23 18:16> ENT: Reports system reviewed and no additional complaints, except as documented, Denies dizziness, Denies headache(s), Denies nasal congestion, Denies nasal discharge and Denies neck pain <Reina Wells NP - Last Filed: 02/19/23 18:16> Cardiovascular: Cardiovascular: Reports no additional cardiovascular complaints, Denies chest pain, Denies leg edema and Denies dyspnea <Reina Wells NP - Last Filed: 02/19/23 18:16> Respiratory: Respiratory: Reports no additional respiratory complaints, Denies cough and Denies dyspnea <Reina Wells NP - Last Filed: 02/19/23 18:16> Gastrointestinal: Gastrointestinal: Reports no additional gastrointestinal complaints, Denies abdominal pain, Denies diarrhea, Denies nausea and Denies vomiting <Reina Wells NP - Last Filed: 02/19/23 18:16> Genitourinary: Genitourinary: Denies urinary incontinence <Reina Wells NP - Last Filed: 02/19/23 18:16> Musculoskeletal: Musculoskeletal: Reports no additional musculoskeletal complaints, Denies back pain, Denies arthralgias, Denies joint swelling, Denies neck pain, Denies numbness and Denies tingling <Reina Wells NP - Last Filed: 02/19/23 18:16> Integumentary/Breasts: Skin/Breast: Reports system reviewed and no additional complaints, except as docu and Denies rash <Reina Wells NP - Last Filed: 02/19/23 18:16> Neurologic: Reports system reviewed and no additional complaints, except as documented, Reports confusion, Denies dizziness, Denies headache(s), Denies numbness, Denies tingling and Denies weakness <Reina Wells NP - Last Filed: 02/19/23 18:16> Psychiatric: Psychiatric: Reports confusion <Reina Wells NP - Last Filed: 02/19/23 18:16> [facility] Past Medical History Attestation statement: The following information was validated with the patient. <Reina Wells NP - Last Filed: 02/19/23 18:16> Source: old records reviewed and nursing notes reviewed <Reina Wells NP - Last Filed: 02/19/23 18:16> Social History Social History: Social History Advance Directives: Yes Advance Directives on File: Yes Advance Directives Date on File: 02/19/23 <Reina Wells NP - Last Filed: 02/19/23 18:16> Physical Exam Vital Signs: Vital Signs: Last Vital Signs Temp 98.2 F 02/21/23 00:00 Pulse 75 02/22/23 09:11 Resp 18 02/22/23 09:11 BP 139/75 02/22/23 09:11 Pulse Ox 95 02/22/23 09:11 O2 Del Method Room Air 02/22/23 09:11 O2 Flow Rate 4 02/21/23 03:30 BMI result Body Mass Index 29.9 <Reina Wells NP - Last Filed: 02/19/23 18:16> Vital Signs: Last Vital Signs Temp 98.2 F 02/21/23 00:00 Pulse 75 02/22/23 09:11 Resp 18 02/22/23 09:11 BP 139/75 02/22/23 09:11 Pulse Ox 95 02/22/23 09:11 O2 Del Method Room Air 02/22/23 09:11 O2 Flow Rate 4 02/21/23 03:30 BMI result Body Mass Index 29.9 <ALEKSANDR Campos - Last Filed: 02/20/23 08:51> Vital Signs: Last Vital Signs Temp 98.2 F 02/21/23 00:00 Pulse 75 02/22/23 09:11 Resp 18 02/22/23 09:11 BP 139/75 02/22/23 09:11 Pulse Ox 95 02/22/23 09:11 O2 Del Method Room Air 02/22/23 09:11 O2 Flow Rate 4 02/21/23 03:30 BMI result Body Mass Index 29.9 <Faustino Hernandez MD - Last Filed: 02/21/23 03:01> Vital Signs: Last Vital Signs Temp 98.2 F 02/21/23 00:00 Pulse 75 02/22/23 09:11 Resp 18 02/22/23 09:11 BP 139/75 02/22/23 09:11 Pulse Ox 95 02/22/23 09:11 O2 Del Method Room Air 02/22/23 09:11 O2 Flow Rate 4 02/21/23 03:30 BMI result Body Mass Index 29.9 <Cliff Nesbitt MD - Last Filed: 02/21/23 08:14> Vital Signs: Last Vital Signs Temp 98.2 F 02/21/23 00:00 Pulse 75 02/22/23 09:11 Resp 18 02/22/23 09:11 BP 139/75 02/22/23 09:11 Pulse Ox 95 02/22/23 09:11 O2 Del Method Room Air 02/22/23 09:11 O2 Flow Rate 4 02/21/23 03:30 BMI result Body Mass Index 29.9 <Alex Bear - Last Filed: 02/21/23 18:35> Vital Signs: Last Vital Signs Temp 98.2 F 02/21/23 00:00 Pulse 75 02/22/23 09:11 Resp 18 02/22/23 09:11 BP 139/75 02/22/23 09:11 Pulse Ox 95 02/22/23 09:11 O2 Del Method Room Air 02/22/23 09:11 O2 Flow Rate 4 02/21/23 03:30 BMI result Body Mass Index 29.9 <Kita Gustafson PA - Last Filed: 02/22/23 17:47> Const: General: alert and confusion <Reina Wells NP - Last Filed: 02/19/23 18:16> Orientation/consciousness: oriented to person, oriented to place and confusion <Reina Wells NP - Last Filed: 02/19/23 18:16> Limitations: altered mental status <Reina Wells NP - Last Filed: 02/19/23 18:16> HEENT: Head: Yes normal to inspection <Reina Wells MEDICAL OFFICE PROFESSIONAL INSTRUCTOR - Last Filed: 02/19/23 18:16> Ears: hearing grossly normal bilaterally <Reina Wells NP - Last Filed: 02/19/23 18:16> Eyes: General: appearance normal, both eyes and all related structures <Reina Wells NP - Last Filed: 02/19/23 18:16> Pupils: Equal, round and reactive pupils present <Reina Wells NP - Last Filed: 02/19/23 18:16> Neck: Neck: Yes normal visual inspection, Yes full ROM and Yes no lymphadenopathy <Reina Wells NP - Last Filed: 02/19/23 18:16> Chest: Chest palpation & inspection: normal inspection of the chest <Reina Wells NP - Last Filed: 02/19/23 18:16> Resp: Effort & Inspection: normal respiratory effort <Reina Wells NP - Last Filed: 02/19/23 18:16> Auscultation: clear to auscultation bilaterally <Reina Wells NP - Last Filed: 02/19/23 18:16> Cardio: Rate: regular rate <Reina Niñocci, MEDICAL OFFICE PROFESSIONAL INSTRUCTOR - Last Filed: 02/19/23 18:16> Rhythm: regular rhythm <Reina Renaygladis, MEDICAL OFFICE PROFESSIONAL INSTRUCTOR - Last Filed: 02/19/23 18:16> Peripheral pulses: Peripheral pulses 2+ throughout <Reina Renaygladis, MEDICAL OFFICE PROFESSIONAL INSTRUCTOR - Last Filed: 02/19/23 18:16> GI: Inspection: Yes normal to inspection <Reina Priscilla, MEDICAL OFFICE PROFESSIONAL INSTRUCTOR - Last Filed: 02/19/23 18:16> Palpation (GI): Soft to palpation and nontender <Reina Priscilla, MEDICAL OFFICE PROFESSIONAL INSTRUCTOR - Last Filed: 02/19/23 18:16> : General: Yes no CVA tenderness <Reina Priscilla, MEDICAL OFFICE PROFESSIONAL INSTRUCTOR - Last Filed: 02/19/23 18:16> Back/Spine/Pelvis: Back: no CVA tenderness <Reina Priscilla, MEDICAL OFFICE PROFESSIONAL INSTRUCTOR - Last Filed: 02/19/23 18:16> Thoracic/Lumbar Spine: thoracic and lumbar spine normal to inspection <Reina Priscilla, MEDICAL OFFICE PROFESSIONAL INSTRUCTOR - Last Filed: 02/19/23 18:16> Skin: General skin exam: no rashes or lesions noted <Reina Khurramvictoriano, MEDICAL OFFICE PROFESSIONAL INSTRUCTOR - Last Filed: 02/19/23 18:16> Neuro: General: oriented to person, oriented to place, moves all extremities and confusion <Reina Khurramvictoriano, MEDICAL OFFICE PROFESSIONAL INSTRUCTOR - Last Filed: 02/19/23 18:16> Cranial nerves: Yes Equal, round and reactive pupils present and Yes Normal facial strength present <Reina Priscilla, MEDICAL OFFICE PROFESSIONAL INSTRUCTOR - Last Filed: 02/19/23 18:16> Motor exam (neuro): 5/5 motor strength present throughout <Reina Priscilla, MEDICAL OFFICE PROFESSIONAL INSTRUCTOR - Last Filed: 02/19/23 18:16> Sensory Exam: Normal double simultaneous stimulation for sensation <Reina Priscilla, MEDICAL OFFICE PROFESSIONAL INSTRUCTOR - Last Filed: 02/19/23 18:16> Extrem: General: Yes normal to inspection, Yes no pedal edema and Yes no calf tenderness <Reina Priscilla, MEDICAL OFFICE PROFESSIONAL INSTRUCTOR - Last Filed: 02/19/23 18:16> Course Course Course Narrative: 1400-patient was seen by the care team. At this time patient does not need a inpatient [place] psych bed and this would not likely be helpful for his care. However, he does need a higher level of care as family cannot care for him at home. The psychiatric nurse practitioner will be seeing the patient to give any additional recommendations. <Reina Wells NP - Last Filed: 02/19/23 18:16> 1400-patient was seen by the care team. At this time patient does not need a inpatient [place] psych bed and this would not likely be helpful for his care. However, he does need a higher level of care as family cannot care for him at home. The psychiatric nurse practitioner will be seeing the patient to give any additional recommendations. 02/22/23- 5--physician comes patient continued. Vital signs stable. Labs and imaging reviewed. Case management following for discharge needs <ALEKSANDR Real - Last Filed: 02/22/23 17:47> Reevaluation(s) Reevaluation #1: 1800-patient was seen by the psychiatric nurse practitioner. See her recommendations. Plan is for patient to have a [place] tomorrow, additional medication management, and physical therapy evaluation. Patient does not have capacity to make his own medical decision. Healthcare proxy should be invoked. Will continue physician observation pending disposition <Reina Wells NP - Last Filed: 02/19/23 18:16> 1800-patient was seen by the psychiatric nurse practitioner. See her recommendations. Plan is for patient to have a [place] tomorrow, additional medication management, and physical therapy evaluation. Patient does not have capacity to make his own medical decision. Healthcare proxy should be invoked. Will continue physician observation pending disposition 02/20/2023 0850 - Physician observation continues. Patient pending PT evaluation. Case management following. <ALEKSANDR Campos - Last Filed: 02/20/23 08:51> Reevaluation #2: RN called as patient syncopized and fell. Patient received Ativan 2 mg about 30 minutes prior to this patient is standing at the nursing station and felt lightheaded and passed out and fell hitting his head to the ground patient was pale confused pulse was febrile regained consciousness of his on. Will get CT head C-spine check high sensitive troponin and EKG <Faustino Heranndez MD - Last Filed: 02/21/23 03:01> Time: 02:40 <Faustino Hernandez MD - Last Filed: 02/21/23 03:01> Reevaluation #3: Patient is currently hypotensive. He is not apparently at his baseline mental status. Patient did have a CT scan of the head which was negative for acute traumatic injury. Will give patient IV fluids. Been a couple of days since his last blood work. Will repeat blood work to see if there are any other possible contributing features. <Cliff Nesbitt MD - Last Filed: 02/21/23 08:14> Additional Reevaluation(s): I was approached by nursing staff that the patient had bright red urine. He did have a straight cath this morning, so this is likely the cause of traumatic hematuria. The patient is not on any blood thinners. Will observe to see if the hematuria clears on its own. If it does not or if the patient develops any retention, will proceed with further evaluation management with likely imaging and additional UA. Given the patient is currently able to urinate on his own and has no complaints of pain we will just monitor for now. <Alex Bear - Last Filed: 02/21/23 18:35> Medications Administered Generic Name Dose Route Start Last Admin Trade Name Freq PRN Reason Stop Dose Admin Atorvastatin Calcium 80 mg 02/19/23 21:00 02/21/23 21:35 Atorvastatin Calcium 80 Mg Tablet PO 80 mg BEDTIME MISTY Administration Doxazosin Mesylate 2 mg 02/19/23 21:00 02/21/23 21:35 Doxazosin Mesylate 2 Mg Tablet PO 2 mg BEDTIME MISTY Administration Hydrochlorothiazide 12.5 mg 02/20/23 09:00 02/22/23 09:13 Hydrochlorothiazide 12.5 Mg Tablet PO 12.5 mg DAILY MISTY Administration Insulin Glargine 7 unit 02/19/23 21:00 02/21/23 21:35 Insulin Glargine,Hum.Rec.Anlog 100 Unit/Ml 10 Ml Vial SUBCUT 7 unit BEDTIME MISTY Administration Insulin Human Lispro 0 unit 02/19/23 21:00 02/22/23 13:51 Insulin Lispro 100 Unit/Ml 3 Ml Vial SUBCUT Not [facility] Protocol Lisinopril 40 mg 02/20/23 09:00 02/22/23 09:13 Lisinopril 40 Mg Tablet PO 40 mg DAILY MISTY Administration Protocol Metoprolol Tartrate 50 mg 02/19/23 21:00 02/22/23 09:13 Metoprolol Tartrate 50 Mg Tablet PO 50 mg BID MISTY Administration Protocol Olanzapine 2.5 mg 02/19/23 21:00 02/22/23 09:13 Olanzapine 2.5 Mg Tablet PO 2.5 mg BID MISTY Administration Omeprazole 20 mg 02/20/23 06:30 02/22/23 08:56 Omeprazole 20 Mg Capsule.Dr PO Not Given DAILY@0630 MISTY Discontinued Medications Generic Name Dose Route Start Last Admin Trade Name Frefrances PRN Reason Stop Dose Admin Sodium Chloride 1,000 mls @ 999 mls/hr 02/21/23 08:15 02/21/23 11:00 Ns IV 02/21/23 09:15 Infused .Q1H1M MISTY Infusion Lorazepam 2 mg 02/21/23 01:23 02/21/23 01:57 Lorazepam 1 Mg Tablet PO 02/21/23 01:24 2 mg ONCE ONE Administration Lorazepam 0.5 mg 02/21/23 22:10 02/21/23 22:17 Lorazepam 2 Mg/Ml Vial IVPUSH 02/21/23 22:11 0.5 mg ONCE ONE Administration <Reina Wells NP - Last Filed: 02/19/23 18:16> Medications Administered Generic Name Dose Route Start Last Admin Trade Name Stephanie PRN Reason Stop Dose Admin Atorvastatin Calcium 80 mg 02/19/23 21:00 02/21/23 21:35 Atorvastatin Calcium 80 Mg Tablet PO 80 mg BEDTIME MISTY Administration Doxazosin Mesylate 2 mg 02/19/23 21:00 02/21/23 21:35 Doxazosin Mesylate 2 Mg Tablet PO 2 mg BEDTIME MISTY Administration Hydrochlorothiazide 12.5 mg 02/20/23 09:00 02/22/23 09:13 Hydrochlorothiazide 12.5 Mg Tablet PO 12.5 mg DAILY MISTY Administration Insulin Glargine 7 unit 02/19/23 21:00 02/21/23 21:35 Insulin Glargine,Hum.Rec.Anlog 100 Unit/Ml 10 Ml Vial SUBCUT 7 unit BEDTIME MISTY Administration Insulin Human Lispro 0 unit 02/19/23 21:00 02/22/23 13:51 Insulin Lispro 100 Unit/Ml 3 Ml Vial SUBCUT Not Given [facility] Protocol Lisinopril 40 mg 02/20/23 09:00 02/22/23 09:13 Lisinopril 40 Mg Tablet PO 40 mg DAILY MISTY Administration Protocol Metoprolol Tartrate 50 mg 02/19/23 21:00 02/22/23 09:13 Metoprolol Tartrate 50 Mg Tablet PO 50 mg BID MISTY Administration Protocol Olanzapine 2.5 mg 02/19/23 21:00 02/22/23 09:13 Olanzapine 2.5 Mg Tablet PO 2.5 mg BID MISTY Administration Omeprazole 20 mg 02/20/23 06:30 02/22/23 08:56 Omeprazole 20 Mg Capsule.Dr PO Not Given DAILY@0630 MISTY Discontinued Medications Generic Name Dose Route Start Last Admin Trade Name Freq PRN Reason Stop Dose Admin Sodium Chloride 1,000 mls @ 999 mls/hr 02/21/23 08:15 02/21/23 11:00 Ns IV 02/21/23 09:15 Infused .Q1H1M MISTY Infusion Lorazepam 2 mg 02/21/23 01:23 02/21/23 01:57 Lorazepam 1 Mg Tablet PO 02/21/23 01:24 2 mg ONCE ONE Administration Lorazepam 0.5 mg 02/21/23 22:10 02/21/23 22:17 Lorazepam 2 Mg/Ml Vial IVPUSH 02/21/23 22:11 0.5 mg ONCE ONE Administration <ALEKSANDR Campos - Last Filed: 02/20/23 08:51> Medications Administered Generic Name Dose Route Start Last Admin Trade Name Freq PRN Reason Stop Dose Admin Atorvastatin Calcium 80 mg 02/19/23 21:00 02/21/23 21:35 Atorvastatin Calcium 80 Mg Tablet PO 80 mg BEDTIME MISTY Administration Doxazosin Mesylate 2 mg 02/19/23 21:00 02/21/23 21:35 Doxazosin Mesylate 2 Mg Tablet PO 2 mg BEDTIME MISTY Administration Hydrochlorothiazide 12.5 mg 02/20/23 09:00 02/22/23 09:13 Hydrochlorothiazide 12.5 Mg Tablet PO 12.5 mg DAILY MISTY Administration Insulin Glargine 7 unit 02/19/23 21:00 02/21/23 21:35 Insulin Glargine,Hum.Rec.Anlog 100 Unit/Ml 10 Ml Vial SUBCUT 7 unit BEDTIME MISTY Administration Insulin Human Lispro 0 unit 02/19/23 21:00 02/22/23 13:51 Insulin Lispro 100 Unit/Ml 3 Ml Vial SUBCUT Not Given [facility] Protocol Lisinopril 40 mg 02/20/23 09:00 02/22/23 09:13 Lisinopril 40 Mg Tablet PO 40 mg DAILY MISTY Administration Protocol Metoprolol Tartrate 50 mg 02/19/23 21:00 02/22/23 09:13 Metoprolol Tartrate 50 Mg Tablet PO 50 mg BID MISTY Administration Protocol Olanzapine 2.5 mg 02/19/23 21:00 02/22/23 09:13 Olanzapine 2.5 Mg Tablet PO 2.5 mg BID MISTY Administration Omeprazole 20 mg 02/20/23 06:30 02/22/23 08:56 Omeprazole 20 Mg Capsule.Dr PO Not Given DAILY@0630 MISTY Discontinued Medications Generic Name Dose Route Start Last Admin Trade Name Freq PRN Reason Stop Dose Admin Sodium Chloride 1,000 mls @ 999 mls/hr 02/21/23 08:15 02/21/23 11:00 Ns IV 02/21/23 09:15 Infused .Q1H1M MISTY Infusion Lorazepam 2 mg 02/21/23 01:23 02/21/23 01:57 Lorazepam 1 Mg Tablet PO 02/21/23 01:24 2 mg ONCE ONE Administration Lorazepam 0.5 mg 02/21/23 22:10 02/21/23 22:17 Lorazepam 2 Mg/Ml Vial IVPUSH 02/21/23 22:11 0.5 mg ONCE ONE Administration <Faustino Hernandez MD - Last Filed: 02/21/23 03:01> Medications Administered Generic Name Dose Route Start Last Admin Trade Name Freq PRN Reason Stop Dose Admin Atorvastatin Calcium 80 mg 02/19/23 21:00 02/21/23 21:35 Atorvastatin Calcium 80 Mg Tablet PO 80 mg BEDTIME MISTY Administration Doxazosin Mesylate 2 mg 02/19/23 21:00 02/21/23 21:35 Doxazosin Mesylate 2 Mg Tablet PO 2 mg BEDTIME MISTY Administration Hydrochlorothiazide 12.5 mg 02/20/23 09:00 02/22/23 09:13 Hydrochlorothiazide 12.5 Mg Tablet PO 12.5 mg DAILY MISTY Administration Insulin Glargine 7 unit 02/19/23 21:00 02/21/23 21:35 Insulin Glargine,Hum.Rec.Anlog 100 Unit/Ml 10 Ml Vial SUBCUT 7 unit BEDTIME MISTY Administration Insulin Human Lispro 0 unit 02/19/23 21:00 02/22/23 13:51 Insulin Lispro 100 Unit/Ml 3 Ml Vial SUBCUT Not Given [facility] Protocol Lisinopril 40 mg 02/20/23 09:00 02/22/23 09:13 Lisinopril 40 Mg Tablet PO 40 mg DAILY MISTY Administration Protocol Metoprolol Tartrate 50 mg 02/19/23 21:00 02/22/23 09:13 Metoprolol Tartrate 50 Mg Tablet PO 50 mg BID MISTY Administration Protocol Olanzapine 2.5 mg 02/19/23 21:00 02/22/23 09:13 Olanzapine 2.5 Mg Tablet PO 2.5 mg BID MISTY Administration Omeprazole 20 mg 02/20/23 06:30 02/22/23 08:56 Omeprazole 20 Mg Capsule.Dr PO Not Given DAILY@0630 MISTY Discontinued Medications Generic Name Dose Route Start Last Admin Trade Name Freq PRN Reason Stop Dose Admin Sodium Chloride 1,000 mls @ 999 mls/hr 02/21/23 08:15 02/21/23 11:00 Ns IV 02/21/23 09:15 Infused .Q1H1M MISTY Infusion Lorazepam 2 mg 02/21/23 01:23 02/21/23 01:57 Lorazepam 1 Mg Tablet PO 02/21/23 01:24 2 mg ONCE ONE Administration Lorazepam 0.5 mg 02/21/23 22:10 02/21/23 22:17 Lorazepam 2 Mg/Ml Vial IVPUSH 02/21/23 22:11 0.5 mg ONCE ONE Administration <Cliff Nesbitt MD - Last Filed: 02/21/23 08:14> Medications Administered Generic Name Dose Route Start Last Admin Trade Name Freq PRN Reason Stop Dose Admin Atorvastatin Calcium 80 mg 02/19/23 21:00 02/21/23 21:35 Atorvastatin Calcium 80 Mg Tablet PO 80 mg BEDTIME MISTY Administration Doxazosin Mesylate 2 mg 02/19/23 21:00 02/21/23 21:35 Doxazosin Mesylate 2 Mg Tablet PO 2 mg BEDTIME MISTY Administration Hydrochlorothiazide 12.5 mg 02/20/23 09:00 02/22/23 09:13 Hydrochlorothiazide 12.5 Mg Tablet PO 12.5 mg DAILY MISTY Administration Insulin Glargine 7 unit 02/19/23 21:00 02/21/23 21:35 Insulin Glargine,Hum.Rec.Anlog 100 Unit/Ml 10 Ml Vial SUBCUT 7 unit BEDTIME MISTY Administration Insulin Human Lispro 0 unit 02/19/23 21:00 02/22/23 13:51 Insulin Lispro 100 Unit/Ml 3 Ml Vial SUBCUT Not Given [facility] Protocol Lisinopril 40 mg 02/20/23 09:00 02/22/23 09:13 Lisinopril 40 Mg Tablet PO 40 mg DAILY MISTY Administration Protocol Metoprolol Tartrate 50 mg 02/19/23 21:00 02/22/23 09:13 Metoprolol Tartrate 50 Mg Tablet PO 50 mg BID MISTY Administration Protocol Olanzapine 2.5 mg 02/19/23 21:00 02/22/23 09:13 Olanzapine 2.5 Mg Tablet PO 2.5 mg BID MISTY Administration Omeprazole 20 mg 02/20/23 06:30 02/22/23 08:56 Omeprazole 20 Mg Capsule.Dr PO Not Given DAILY@0630 MISTY Discontinued Medications Generic Name Dose Route Start Last Admin Trade Name Freq PRN Reason Stop Dose Admin Sodium Chloride 1,000 mls @ 999 mls/hr 02/21/23 08:15 02/21/23 11:00 Ns IV 02/21/23 09:15 Infused .Q1H1M MISTY Infusion Lorazepam 2 mg 02/21/23 01:23 02/21/23 01:57 Lorazepam 1 Mg Tablet PO 02/21/23 01:24 2 mg ONCE ONE Administration Lorazepam 0.5 mg 02/21/23 22:10 02/21/23 22:17 Lorazepam 2 Mg/Ml Vial IVPUSH 02/21/23 22:11 0.5 mg ONCE ONE Administration <Alex Bear - Last Filed: 02/21/23 18:35> Medications Administered Generic Name Dose Route Start Last Admin Trade Name Freq PRN Reason Stop Dose Admin Atorvastatin Calcium 80 mg 02/19/23 21:00 02/21/23 21:35 Atorvastatin Calcium 80 Mg Tablet PO 80 mg BEDTIME MISTY Administration Doxazosin Mesylate 2 mg 02/19/23 21:00 02/21/23 21:35 Doxazosin Mesylate 2 Mg Tablet PO 2 mg BEDTIME MISTY Administration Hydrochlorothiazide 12.5 mg 02/20/23 09:00 02/22/23 09:13 Hydrochlorothiazide 12.5 Mg Tablet PO 12.5 mg DAILY MISTY Administration Insulin Glargine 7 unit 02/19/23 21:00 02/21/23 21:35 Insulin Glargine,Hum.Rec.Anlog 100 Unit/Ml 10 Ml Vial SUBCUT 7 unit BEDTIME MISTY Administration Insulin Human Lispro 0 unit 02/19/23 21:00 02/22/23 13:51 Insulin Lispro 100 Unit/Ml 3 Ml Vial SUBCUT Not Given [facility] Protocol Lisinopril 40 mg 02/20/23 09:00 02/22/23 09:13 Lisinopril 40 Mg Tablet PO 40 mg DAILY MISTY Administration Protocol Metoprolol Tartrate 50 mg 02/19/23 21:00 02/22/23 09:13 Metoprolol Tartrate 50 Mg Tablet PO 50 mg BID MISTY Administration Protocol Olanzapine 2.5 mg 02/19/23 21:00 02/22/23 09:13 Olanzapine 2.5 Mg Tablet PO 2.5 mg BID MISTY Administration Omeprazole 20 mg 02/20/23 06:30 02/22/23 08:56 Omeprazole 20 Mg Capsule.Dr PO Not Given DAILY@0630 [facility] Discontinued Medications Generic Name Dose Route Start Last Admin Trade Name Freq PRN Reason Stop Dose Admin Sodium Chloride 1,000 mls @ 999 mls/hr 02/21/23 08:15 02/21/23 11:00 Ns IV 02/21/23 09:15 Infused .Q1H1M MISTY Infusion Lorazepam 2 mg 02/21/23 01:23 02/21/23 01:57 Lorazepam 1 Mg Tablet PO 02/21/23 01:24 2 mg ONCE ONE Administration Lorazepam 0.5 mg 02/21/23 22:10 02/21/23 22:17 Lorazepam 2 Mg/Ml Vial IVPUSH 02/21/23 22:11 0.5 mg ONCE ONE Administration <ALEKSANDR Real - Last Filed: 02/22/23 17:47> Medical Decision Making Medical Decision Making MDM Narrative: 82 yo male with history of dementia here on section 12 with concerns from family that they cannot care for the patient at home, increasing par anoia/delusions per family. No reports of trauma or ingestion. Will need CM once medically cleared. Not sure [place] psych eval would be helpful at this time however consider once discussed with CM. Will order labs, UA, COVID screen <Reina Wells MEDICAL OFFICE PROFESSIONAL INSTRUCTOR - Last Filed: 02/19/23 18:16> Differential Diagnosis Differential Diagnoses: The differential diagnosis associated with the presentation includes <Reina Wells NP - Last Filed: 02/19/23 18:16> dementia,delirium, metabolic encephalopathy, electrolyte abnormality <Reina Wells MEDICAL OFFICE PROFESSIONAL INSTRUCTOR - Last Filed: 02/19/23 18:16> Lab Data MDM Lab Attestation statement: I reviewed the patient's lab results. <Reina Wells NP - Last Filed: 02/19/23 18:16> Result Diagrams: 02/19/23 08:25 02/19/23 08:25 <Reina Wells MEDICAL OFFICE PROFESSIONAL INSTRUCTOR - Last Filed: 02/19/23 18:16> Labs: Lab Results 02/19/23 02/19/23 02/19/23 Range/Units 08:25 08:25 08:25 WBC 5.6 (4.8-10.8) X10*3/uL RBC 4.90 (4.60-5.80) X10*6/uL Hgb 15.7 (14.0-18.0) g/dl Hct 45.5 (42.0-52.0) % MCV 92.9 (80.0-98.0) fL MCH 32.0 (27.0-33.0) pg MCHC 34.5 (31.0-36.0) g/dl RDW 13.4 (11.0-16.0) % Plt Count 97 L (160-400) X10*3/uL MPV 11.1 (9.4-12.4) fL Immature Gran % (Auto) 0.2 (0.0-0.4) % Neut % (Auto) 67.7 (45-73) % Lymph % (Auto) 15.8 L (20-40) % [place] % (Auto) 10.6 (2-11) % Eos % (Auto) 4.8 H (0-4) % Baso % (Auto) 0.9 (0-2) % Lymph # (Auto) 0.9 L (1.2-4.9) X10*3/uL [place] # (Auto) 0.6 (0.1-1.2) X10*3/uL Eos # (Auto) 0.3 (0.0-0.4) X10*3/uL Baso # (Auto) 0.1 (0.0-0.2) X10*3/uL Abs Immat Gran (auto) 0.01 (0.00-0.03) X10*3/uL Absolute Neuts (auto) 3.8 (2.0-8.3) x10*3/uL Absolute Nucleated RBC 0.000 (0.0-0.012) X10*3/uL Nucleated RBC % (auto) 0.0 (0.0-0.2) /100WBC Sodium 140 (135-145) mmol/L Potassium 3.6 (3.3-5.1) mmol/L Chloride 101 (96-108) mmol/L Carbon Dioxide 30 H (22-29) mmol/L Anion Gap 13 (12-20) BUN 16 (9-16) mg/dL Creatinine 1.36 (0.5-1.4) mg/dL Estim Creat Clear Calc 39.7 Estimated GFR 50 POC Glucose (60-115) mg/dL Random Glucose 154 H (60-115) mg/dL Lactic Acid (0.5-2.0) mmol/L Calcium 8.5 D (8.4-10.2) mg/dL Total Bilirubin 1.8 H (0.0-1.0) mg/dL AST 37 (5-37) U/L ALT 32 (0-40) U/L Alkaline Phosphatase 89 (39-117) U/L Troponin I High Sens (<3.5-35.0) ng/L Total Protein 5.4 L (6.5-8.0) g/dL Albumin 3.7 (3.5-5.0) g/dL Urine Color Urine Appearance Urine pH (5.0-9.0) Ur Specific [place] (1.005-1.025) Urine Protein (Neg-Trace) mg/dL Urine Glucose (UA) (Negative) mg/dL Urine Ketones (Negative) mg/dL Urine Blood (Negative) Urine Nitrite (Negative) Ur Leukocyte Esterase (Negative) Urine RBC (0-2) /HPF Urine WBC (0-5) /HPF Ur Squamous Epith Cells (0-2) /HPF Urine Bacteria (None Seen) Hyaline Casts (0-2) /LPF COVID-19 (JOANN) Negative (Negative) COVID-19 Clin Com See Note 02/19/23 02/19/23 02/20/23 Range/Units 09:17 20:13 06:15 WBC (4.8-10.8) X10*3/uL RBC (4.60-5.80) X10*6/uL Hgb (14.0-18.0) g/dl Hct (42.0-52.0) % MCV (80.0-98.0) fL MCH (27.0-33.0) pg MCHC (31.0-36.0) g/dl RDW (11.0-16.0) % Plt Count (160-400) X10*3/uL MPV (9.4-12.4) fL Immature Gran % (Auto) (0.0-0.4) % Neut % (Auto) (45-73) % Lymph % (Auto) (20-40) % [place] % (Auto) (2-11) % Eos % (Auto) (0-4) % Baso % (Auto) (0-2) % Lymph # (Auto) (1.2-4.9) X10*3/uL [place] # (Auto) (0.1-1.2) X10*3/uL Eos # (Auto) (0.0-0.4) X10*3/uL Baso # (Auto) (0.0-0.2) X10*3/uL Abs Immat Gran (auto) (0.00-0.03) X10*3/uL Absolute Neuts (auto) (2.0-8.3) x10*3/uL Absolute Nucleated RBC (0.0-0.012) X10*3/uL Nucleated RBC % (auto) (0.0-0.2) /100WBC Sodium (135-145) mmol/L Potassium (3.3-5.1) mmol/L Chloride (96-108) mmol/L Carbon Dioxide (22-29) mmol/L Anion Gap (12-20) BUN (9-16) mg/dL Creatinine (0.5-1.4) mg/dL Estim Creat Clear Calc Estimated GFR POC Glucose 184 H 123 H (60-115) mg/dL Random Glucose (60-115) mg/dL Lactic Acid (0.5-2.0) mmol/L Calcium (8.4-10.2) mg/dL Total Bilirubin (0.0-1.0) mg/dL AST (5-37) U/L ALT (0-40) U/L Alkaline Phosphatase (39-117) U/L Troponin I High Sens (<3.5-35.0) ng/L Total Protein (6.5-8.0) g/dL Albumin (3.5-5.0) g/dL Urine Color Yellow Urine Appearance Clear Urine pH 7.0 (5.0-9.0) Ur Specific [place] 1.010 (1.005-1.025) Urine Protein Negative (Neg-Trace) mg/dL Urine Glucose (UA) Negative (Negative) mg/dL Urine Ketones Negative (Negative) mg/dL Urine Blood Negative (Negative) Urine Nitrite Negative (Negative) Ur Leukocyte Esterase Negative (Negative) Urine RBC (0-2) /HPF Urine WBC (0-5) /HPF Ur Squamous Epith Cells (0-2) /HPF Urine Bacteria (None Seen) Hyaline Casts (0-2) /LPF COVID-19 (JOANN) (Negative) COVID-19 Clin Com 02/20/23 02/20/23 02/20/23 Range/Units 12:51 17:58 20:49 WBC (4.8-10.8) X10*3/uL RBC (4.60-5.80) X10*6/uL Hgb (14.0-18.0) g/dl Hct (42.0-52.0) % MCV (80.0-98.0) fL MCH (27.0-33.0) pg MCHC (31.0-36.0) g/dl RDW (11.0-16.0) % Plt Count (160-400) X10*3/uL MPV (9.4-12.4) fL Immature Gran % (Auto) (0.0-0.4) % Neut % (Auto) (45-73) % Lymph % (Auto) (20-40) % [place] % (Auto) (2-11) % Eos % (Auto) (0-4) % Baso % (Auto) (0-2) % Lymph # (Auto) (1.2-4.9) X10*3/uL [place] # (Auto) (0.1-1.2) X10*3/uL Eos # (Auto) (0.0-0.4) X10*3/uL Baso # (Auto) (0.0-0.2) X10*3/uL Abs Immat Gran (auto) (0.00-0.03) X10*3/uL Absolute Neuts (auto) (2.0-8.3) x10*3/uL Absolute Nucleated RBC (0.0-0.012) X10*3/uL Nucleated RBC % (auto) (0.0-0.2) /100WBC Sodium (135-145) mmol/L Potassium (3.3-5.1) mmol/L Chloride (96-108) mmol/L Carbon Dioxide (22-29) mmol/L Anion Gap (12-20) BUN (9-16) mg/dL Creatinine (0.5-1.4) mg/dL Estim Creat Clear Calc Estimated GFR POC Glucose 150 H 159 H 143 H (60-115) mg/dL Random Glucose (60-115) mg/dL Lactic Acid (0.5-2.0) mmol/L Calcium (8.4-10.2) mg/dL Total Bilirubin (0.0-1.0) mg/dL AST (5-37) U/L ALT (0-40) U/L Alkaline Phosphatase (39-117) U/L Troponin I High Sens (<3.5-35.0) ng/L Total Protein (6.5-8.0) g/dL Albumin (3.5-5.0) g/dL Urine Color Urine Appearance Urine pH (5.0-9.0) Ur Specific [place] (1.005-1.025) Urine Protein (Neg-Trace) mg/dL Urine Glucose (UA) (Negative) mg/dL Urine Ketones (Negative) mg/dL Urine Blood (Negative) Urine Nitrite (Negative) Ur Leukocyte Esterase (Negative) Urine RBC (0-2) /HPF Urine WBC (0-5) /HPF Ur Squamous Epith Cells (0-2) /HPF Urine Bacteria (None Seen) Hyaline Casts (0-2) /LPF COVID-19 (JOANN) (Negative) COVID-19 Clin Com 02/21/23 02/21/23 02/21/23 Range/Units 02:42 03:24 06:29 WBC (4.8-10.8) X10*3/uL RBC (4.60-5.80) X10*6/uL Hgb (14.0-18.0) g/dl Hct (42.0-52.0) % MCV (80.0-98.0) fL MCH (27.0-33.0) pg MCHC (31.0-36.0) g/dl RDW (11.0-16.0) % Plt Count (160-400) X10*3/uL MPV (9.4-12.4) fL Immature Gran % (Auto) (0.0-0.4) % Neut % (Auto) (45-73) % Lymph % (Auto) (20-40) % [place] % (Auto) (2-11) % Eos % (Auto) (0-4) % Baso % (Auto) (0-2) % Lymph # (Auto) (1.2-4.9) X10*3/uL [place] # (Auto) (0.1-1.2) X10*3/uL Eos # (Auto) (0.0-0.4) X10*3/uL Baso # (Auto) (0.0-0.2) X10*3/uL Abs Immat Gran (auto) (0.00-0.03) X10*3/uL Absolute Neuts (auto) (2.0-8.3) x10*3/uL Absolute Nucleated RBC (0.0-0.012) X10*3/uL Nucleated RBC % (auto) (0.0-0.2) /100WBC Sodium (135-145) mmol/L Potassium (3.3-5.1) mmol/L Chloride (96-108) mmol/L Carbon Dioxide (22-29) mmol/L Anion Gap (12-20) BUN (9-16) mg/dL Creatinine (0.5-1.4) mg/dL Estim Creat Clear Calc Estimated GFR POC Glucose 195 H (60-115) mg/dL Random Glucose (60-115) mg/dL Lactic Acid (0.5-2.0) mmol/L Calcium (8.4-10.2) mg/dL Total Bilirubin (0.0-1.0) mg/dL AST (5-37) U/L ALT (0-40) U/L Alkaline Phosphatase (39-117) U/L Troponin I High Sens 19.5 17.7 (<3.5-35.0) ng/L Total Protein (6.5-8.0) g/dL Albumin (3.5-5.0) g/dL Urine Color Urine Appearance Urine pH (5.0-9.0) Ur Specific [place] (1.005-1.025) Urine Protein (Neg-Trace) mg/dL Urine Glucose (UA) (Negative) mg/dL Urine Ketones (Negative) mg/dL Urine Blood (Negative) Urine Nitrite (Negative) Ur Leukocyte Esterase (Negative) Urine RBC (0-2) /HPF Urine WBC (0-5) /HPF Ur Squamous Epith Cells (0-2) /HPF Urine Bacteria (None Seen) Hyaline Casts (0-2) /LPF COVID-19 (JOANN) (Negative) COVID-19 Clin Com 02/21/23 02/21/23 02/21/23 Range/Units 07:04 08:36 08:36 WBC 5.2 (4.8-10.8) X10*3/uL RBC 4.87 (4.60-5.80) X10*6/uL Hgb 15.4 (14.0-18.0) g/dl Hct 45.2 (42.0-52.0) % MCV 92.8 (80.0-98.0) fL MCH 31.6 (27.0-33.0) pg MCHC 34.1 (31.0-36.0) g/dl RDW 13.3 (11.0-16.0) % Plt Count 83 L (160-400) X10*3/uL MPV 10.7 (9.4-12.4) fL Immature Gran % (Auto) 0.2 (0.0-0.4) % Neut % (Auto) 74.9 H (45-73) % Lymph % (Auto) 11.6 L (20-40) % [place] % (Auto) 9.8 (2-11) % Eos % (Auto) 2.9 (0-4) % Baso % (Auto) 0.6 (0-2) % Lymph # (Auto) 0.6 L (1.2-4.9) X10*3/uL [place] # (Auto) 0.5 (0.1-1.2) X10*3/uL Eos # (Auto) 0.2 (0.0-0.4) X10*3/uL Baso # (Auto) 0.0 (0.0-0.2) X10*3/uL Abs Immat Gran (auto) 0.01 (0.00-0.03) X10*3/uL Absolute Neuts (auto) 3.9 (2.0-8.3) x10*3/uL Absolute Nucleated RBC 0.000 (0.0-0.012) X10*3/uL Nucleated RBC % (auto) 0.0 (0.0-0.2) /100WBC Sodium 137 (135-145) mmol/L Potassium 4.0 (3.3-5.1) mmol/L Chloride 102 (96-108) mmol/L Carbon Dioxide 28 (22-29) mmol/L Anion Gap 11 L (12-20) BUN 18 H (9-16) mg/dL Creatinine 1.16 (0.5-1.4) mg/dL Estim Creat Clear Calc 46.6 Estimated GFR 60 POC Glucose 148 H (60-115) mg/dL Random Glucose 158 H (60-115) mg/dL Lactic Acid (0.5-2.0) mmol/L Calcium 8.5 (8.4-10.2) mg/dL Total Bilirubin (0.0-1.0) mg/dL AST (5-37) U/L ALT (0-40) U/L Alkaline Phosphatase (39-117) U/L Troponin I High Sens (<3.5-35.0) ng/L Total Protein (6.5-8.0) g/dL Albumin (3.5-5.0) g/dL Urine Color Urine Appearance Urine pH (5.0-9.0) Ur Specific [place] (1.005-1.025) Urine Protein (Neg-Trace) mg/dL Urine Glucose (UA) (Negative) mg/dL Urine Ketones (Negative) mg/dL Urine Blood (Negative) Urine Nitrite (Negative) Ur Leukocyte Esterase (Negative) Urine RBC (0-2) /HPF Urine WBC (0-5) /HPF Ur Squamous Epith Cells (0-2) /HPF Urine Bacteria (None Seen) Hyaline Casts (0-2) /LPF COVID-19 (JOANN) (Negative) COVID-19 Clin Com 02/21/23 02/21/23 02/21/23 Range/Units 08:36 08:36 09:42 WBC (4.8-10.8) X10*3/uL RBC (4.60-5.80) X10*6/uL Hgb (14.0-18.0) g/dl Hct (42.0-52.0) % MCV (80.0-98.0) fL MCH (27.0-33.0) pg MCHC (31.0-36.0) g/dl RDW (11.0-16.0) % Plt Count (160-400) X10*3/uL MPV (9.4-12.4) fL Immature Gran % (Auto) (0.0-0.4) % Neut % (Auto) (45-73) % Lymph % (Auto) (20-40) % [place] % (Auto) (2-11) % Eos % (Auto) (0-4) % Baso % (Auto) (0-2) % Lymph # (Auto) (1.2-4.9) X10*3/uL [place] # (Auto) (0.1-1.2) X10*3/uL Eos # (Auto) (0.0-0.4) X10*3/uL Baso # (Auto) (0.0-0.2) X10*3/uL Abs Immat Gran (auto) (0.00-0.03) X10*3/uL Absolute Neuts (auto) (2.0-8.3) x10*3/uL Absolute Nucleated RBC (0.0-0.012) X10*3/uL Nucleated RBC % (auto) (0.0-0.2) /100WBC Sodium (135-145) mmol/L Potassium (3.3-5.1) mmol/L Chloride (96-108) mmol/L Carbon Dioxide (22-29) mmol/L Anion Gap (12-20) BUN (9-16) mg/dL Creatinine (0.5-1.4) mg/dL Estim Creat Clear Calc Estimated GFR POC Glucose (60-115) mg/dL Random Glucose (60-115) mg/dL Lactic Acid 1.6 (0.5-2.0) mmol/L Calcium (8.4-10.2) mg/dL Total Bilirubin (0.0-1.0) mg/dL AST (5-37) U/L ALT (0-40) U/L Alkaline Phosphatase (39-117) U/L Troponin I High Sens 18.4 (<3.5-35.0) ng/L Total Protein (6.5-8.0) g/dL Albumin (3.5-5.0) g/dL Urine Color Yellow Urine Appearance Clear Urine pH 7.0 (5.0-9.0) Ur Specific [place] 1.015 (1.005-1.025) Urine Protein Negative (Neg-Trace) mg/dL Urine Glucose (UA) Negative (Negative) mg/dL Urine Ketones Negative (Negative) mg/dL Urine Blood Trace H (Negative) Urine Nitrite Negative (Negative) Ur Leukocyte Esterase Negative (Negative) Urine RBC 3-5 H (0-2) /HPF Urine WBC 0-5 (0-5) /HPF Ur Squamous Epith Cells 0-2 (0-2) /HPF Urine Bacteria None Seen (None Seen) Hyaline Casts 3-5 (0-2) /LPF COVID-19 (JOANN) (Negative) COVID-19 Clin Com 02/21/23 02/21/23 02/21/23 Range/Units 13:10 18:39 21:40 WBC (4.8-10.8) X10*3/uL RBC (4.60-5.80) X10*6/uL Hgb (14.0-18.0) g/dl Hct (42.0-52.0) % MCV (80.0-98.0) fL MCH (27.0-33.0) pg MCHC (31.0-36.0) g/dl RDW (11.0-16.0) % Plt Count (160-400) X10*3/uL MPV (9.4-12.4) fL Immature Gran % (Auto) (0.0-0.4) % Neut % (Auto) (45-73) % Lymph % (Auto) (20-40) % [place] % (Auto) (2-11) % Eos % (Auto) (0-4) % Baso % (Auto) (0-2) % Lymph # (Auto) (1.2-4.9) X10*3/uL [place] # (Auto) (0.1-1.2) X10*3/uL Eos # (Auto) (0.0-0.4) X10*3/uL Baso # (Auto) (0.0-0.2) X10*3/uL Abs Immat Gran (auto) (0.00-0.03) X10*3/uL Absolute Neuts (auto) (2.0-8.3) x10*3/uL Absolute Nucleated RBC (0.0-0.012) X10*3/uL Nucleated RBC % (auto) (0.0-0.2) /100WBC Sodium (135-145) mmol/L Potassium (3.3-5.1) mmol/L Chloride (96-108) mmol/L Carbon Dioxide (22-29) mmol/L Anion Gap (12-20) BUN (9-16) mg/dL Creatinine (0.5-1.4) mg/dL Estim Creat Clear Calc Estimated GFR POC Glucose 148 H 164 H 163 H (60-115) mg/dL Random Glucose (60-115) mg/dL Lactic Acid (0.5-2.0) mmol/L Calcium (8.4-10.2) mg/dL Total Bilirubin (0.0-1.0) mg/dL AST (5-37) U/L ALT (0-40) U/L Alkaline Phosphatase (39-117) U/L Troponin I High Sens (<3.5-35.0) ng/L Total Protein (6.5-8.0) g/dL Albumin (3.5-5.0) g/dL Urine Color Urine Appearance Urine pH (5.0-9.0) Ur Specific [place] (1.005-1.025) Urine Protein (Neg-Trace) mg/dL Urine Glucose (UA) (Negative) mg/dL Urine Ketones (Negative) mg/dL Urine Blood (Negative) Urine Nitrite (Negative) Ur Leukocyte Esterase (Negative) Urine RBC (0-2) /HPF Urine WBC (0-5) /HPF Ur Squamous Epith Cells (0-2) /HPF Urine Bacteria (None Seen) Hyaline Casts (0-2) /LPF COVID-19 (JOANN) (Negative) COVID-19 Clin Com 02/22/23 02/22/23 Range/Units 09:12 13:51 WBC (4.8-10.8) X10*3/uL RBC (4.60-5.80) X10*6/uL Hgb (14.0-18.0) g/dl Hct (42.0-52.0) % MCV (80.0-98.0) fL MCH (27.0-33.0) pg MCHC (31.0-36.0) g/dl RDW (11.0-16.0) % Plt Count (160-400) X10*3/uL MPV (9.4-12.4) fL Immature Gran % (Auto) (0.0-0.4) % Neut % (Auto) (45-73) % Lymph % (Auto) (20-40) % [place] % (Auto) (2-11) % Eos % (Auto) (0-4) % Baso % (Auto) (0-2) % Lymph # (Auto) (1.2-4.9) X10*3/uL [place] # (Auto) (0.1-1.2) X10*3/uL Eos # (Auto) (0.0-0.4) X10*3/uL Baso # (Auto) (0.0-0.2) X10*3/uL Abs Immat Gran (auto) (0.00-0.03) X10*3/uL Absolute Neuts (auto) (2.0-8.3) x10*3/uL Absolute Nucleated RBC (0.0-0.012) X10*3/uL Nucleated RBC % (auto) (0.0-0.2) /100WBC Sodium (135-145) mmol/L Potassium (3.3-5.1) mmol/L Chloride (96-108) mmol/L Carbon Dioxide (22-29) mmol/L Anion Gap (12-20) BUN (9-16) mg/dL Creatinine (0.5-1.4) mg/dL Estim Creat Clear Calc Estimated GFR POC Glucose 136 H 113 (60-115) mg/dL Random Glucose (60-115) mg/dL Lactic Acid (0.5-2.0) mmol/L Calcium (8.4-10.2) mg/dL Total Bilirubin (0.0-1.0) mg/dL AST (5-37) U/L ALT (0-40) U/L Alkaline Phosphatase (39-117) U/L Troponin I High Sens (<3.5-35.0) ng/L Total Protein (6.5-8.0) g/dL Albumin (3.5-5.0) g/dL Urine Color Urine Appearance Urine pH (5.0-9.0) Ur Specific [place] (1.005-1.025) Urine Protein (Neg-Trace) mg/dL Urine Glucose (UA) (Negative) mg/dL Urine Ketones (Negative) mg/dL Urine Blood (Negative) Urine Nitrite (Negative) Ur Leukocyte Esterase (Negative) Urine RBC (0-2) /HPF Urine WBC (0-5) /HPF Ur Squamous Epith Cells (0-2) /HPF Urine Bacteria (None Seen) Hyaline Casts (0-2) /LPF COVID-19 (JOANN) (Negative) COVID-19 Clin Com <Reina Wells MEDICAL OFFICE PROFESSIONAL INSTRUCTOR - Last Filed: 02/19/23 18:16> Lab Results 02/19/23 02/19/23 02/19/23 Range/Units 08:25 08:25 08:25 WBC 5.6 (4.8-10.8) X10*3/uL RBC 4.90 (4.60-5.80) X10*6/uL Hgb 15.7 (14.0-18.0) g/dl Hct 45.5 (42.0-52.0) % MCV 92.9 (80.0-98.0) fL MCH 32.0 (27.0-33.0) pg MCHC 34.5 (31.0-36.0) g/dl RDW 13.4 (11.0-16.0) % Plt Count 97 L (160-400) X10*3/uL MPV 11.1 (9.4-12.4) fL Immature Gran % (Auto) 0.2 (0.0-0.4) % Neut % (Auto) 67.7 (45-73) % Lymph % (Auto) 15.8 L (20-40) % [place] % (Auto) 10.6 (2-11) % Eos % (Auto) 4.8 H (0-4) % Baso % (Auto) 0.9 (0-2) % Lymph # (Auto) 0.9 L (1.2-4.9) X10*3/uL [place] # (Auto) 0.6 (0.1-1.2) X10*3/uL Eos # (Auto) 0.3 (0.0-0.4) X10*3/uL Baso # (Auto) 0.1 (0.0-0.2) X10*3/uL Abs Immat Gran (auto) 0.01 (0.00-0.03) X10*3/uL Absolute Neuts (auto) 3.8 (2.0-8.3) x10*3/uL Absolute Nucleated RBC 0.000 (0.0-0.012) X10*3/uL Nucleated RBC % (auto) 0.0 (0.0-0.2) /100WBC Sodium 140 (135-145) mmol/L Potassium 3.6 (3.3-5.1) mmol/L Chloride 101 (96-108) mmol/L Carbon Dioxide 30 H (22-29) mmol/L Anion Gap 13 (12-20) BUN 16 (9-16) mg/dL Creatinine 1.36 (0.5-1.4) mg/dL Estim Creat Clear Calc 39.7 Estimated GFR 50 POC Glucose (60-115) mg/dL Random Glucose 154 H (60-115) mg/dL Lactic Acid (0.5-2.0) mmol/L Calcium 8.5 D (8.4-10.2) mg/dL Total Bilirubin 1.8 H (0.0-1.0) mg/dL AST 37 (5-37) U/L ALT 32 (0-40) U/L Alkaline Phosphatase 89 (39-117) U/L Troponin I High Sens (<3.5-35.0) ng/L Total Protein 5.4 L (6.5-8.0) g/dL Albumin 3.7 (3.5-5.0) g/dL Urine Color Urine Appearance Urine pH (5.0-9.0) Ur Specific [place] (1.005-1.025) Urine Protein (Neg-Trace) mg/dL Urine Glucose (UA) (Negative) mg/dL Urine Ketones (Negative) mg/dL Urine Blood (Negative) Urine Nitrite (Negative) Ur Leukocyte Esterase (Negative) Urine RBC (0-2) /HPF Urine WBC (0-5) /HPF Ur Squamous Epith Cells (0-2) /HPF Urine Bacteria (None Seen) Hyaline Casts (0-2) /LPF COVID-19 (JOANN) Negative (Negative) COVID-19 Clin Com See Note 02/19/23 02/19/23 02/20/23 Range/Units 09:17 20:13 06:15 WBC (4.8-10.8) X10*3/uL RBC (4.60-5.80) X10*6/uL Hgb (14.0-18.0) g/dl Hct (42.0-52.0) % MCV (80.0-98.0) fL MCH (27.0-33.0) pg MCHC (31.0-36.0) g/dl RDW (11.0-16.0) % Plt Count (160-400) X10*3/uL MPV (9.4-12.4) fL Immature Gran % (Auto) (0.0-0.4) % Neut % (Auto) (45-73) % Lymph % (Auto) (20-40) % [place] % (Auto) (2-11) % Eos % (Auto) (0-4) % Baso % (Auto) (0-2) % Lymph # (Auto) (1.2-4.9) X10*3/uL [place] # (Auto) (0.1-1.2) X10*3/uL Eos # (Auto) (0.0-0.4) X10*3/uL Baso # (Auto) (0.0-0.2) X10*3/uL Abs Immat Gran (auto) (0.00-0.03) X10*3/uL Absolute Neuts (auto) (2.0-8.3) x10*3/uL Absolute Nucleated RBC (0.0-0.012) X10*3/uL Nucleated RBC % (auto) (0.0-0.2) /100WBC Sodium (135-145) mmol/L Potassium (3.3-5.1) mmol/L Chloride (96-108) mmol/L Carbon Dioxide (22-29) mmol/L Anion Gap (12-20) BUN (9-16) mg/dL Creatinine (0.5-1.4) mg/dL Estim Creat Clear Calc Estimated GFR POC Glucose 184 H 123 H (60-115) mg/dL Random Glucose (60-115) mg/dL Lactic Acid (0.5-2.0) mmol/L Calcium (8.4-10.2) mg/dL Total Bilirubin (0.0-1.0) mg/dL AST (5-37) U/L ALT (0-40) U/L Alkaline Phosphatase (39-117) U/L Troponin I High Sens (<3.5-35.0) ng/L Total Protein (6.5-8.0) g/dL Albumin (3.5-5.0) g/dL Urine Color Yellow Urine Appearance Clear Urine pH 7.0 (5.0-9.0) Ur Specific [place] 1.010 (1.005-1.025) Urine Protein Negative (Neg-Trace) mg/dL Urine Glucose (UA) Negative (Negative) mg/dL Urine Ketones Negative (Negative) mg/dL Urine Blood Negative (Negative) Urine Nitrite Negative (Negative) Ur Leukocyte Esterase Negative (Negative) Urine RBC (0-2) /HPF Urine WBC (0-5) /HPF Ur Squamous Epith Cells (0-2) /HPF Urine Bacteria (None Seen) Hyaline Casts (0-2) /LPF COVID-19 (JOANN) (Negative) COVID-19 Clin Com 02/20/23 02/20/23 02/20/23 Range/Units 12:51 17:58 20:49 WBC (4.8-10.8) X10*3/uL RBC (4.60-5.80) X10*6/uL Hgb (14.0-18.0) g/dl Hct (42.0-52.0) % MCV (80.0-98.0) fL MCH (27.0-33.0) pg MCHC (31.0-36.0) g/dl RDW (11.0-16.0) % Plt Count (160-400) X10*3/uL MPV (9.4-12.4) fL Immature Gran % (Auto) (0.0-0.4) % Neut % (Auto) (45-73) % Lymph % (Auto) (20-40) % [place] % (Auto) (2-11) % Eos % (Auto) (0-4) % Baso % (Auto) (0-2) % Lymph # (Auto) (1.2-4.9) X10*3/uL [place] # (Auto) (0.1-1.2) X10*3/uL Eos # (Auto) (0.0-0.4) X10*3/uL Baso # (Auto) (0.0-0.2) X10*3/uL Abs Immat Gran (auto) (0.00-0.03) X10*3/uL Absolute Neuts (auto) (2.0-8.3) x10*3/uL Absolute Nucleated RBC (0.0-0.012) X10*3/uL Nucleated RBC % (auto) (0.0-0.2) /100WBC Sodium (135-145) mmol/L Potassium (3.3-5.1) mmol/L Chloride (96-108) mmol/L Carbon Dioxide (22-29) mmol/L Anion Gap (12-20) BUN (9-16) mg/dL Creatinine (0.5-1.4) mg/dL Estim Creat Clear Calc Estimated GFR POC Glucose 150 H 159 H 143 H (60-115) mg/dL Random Glucose (60-115) mg/dL Lactic Acid (0.5-2.0) mmol/L Calcium (8.4-10.2) mg/dL Total Bilirubin (0.0-1.0) mg/dL AST (5-37) U/L ALT (0-40) U/L Alkaline Phosphatase (39-117) U/L Troponin I High Sens (<3.5-35.0) ng/L Total Protein (6.5-8.0) g/dL Albumin (3.5-5.0) g/dL Urine Color Urine Appearance Urine pH (5.0-9.0) Ur Specific [place] (1.005-1.025) Urine Protein (Neg-Trace) mg/dL Urine Glucose (UA) (Negative) mg/dL Urine Ketones (Negative) mg/dL Urine Blood (Negative) Urine Nitrite (Negative) Ur Leukocyte Esterase (Negative) Urine RBC (0-2) /HPF Urine WBC (0-5) /HPF Ur Squamous Epith Cells (0-2) /HPF Urine Bacteria (None Seen) Hyaline Casts (0-2) /LPF COVID-19 (JOANN) (Negative) COVID-19 Clin Com 02/21/23 02/21/23 02/21/23 Range/Units 02:42 03:24 06:29 WBC (4.8-10.8) X10*3/uL RBC (4.60-5.80) X10*6/uL Hgb (14.0-18.0) g/dl Hct (42.0-52.0) % MCV (80.0-98.0) fL MCH (27.0-33.0) pg MCHC (31.0-36.0) g/dl RDW (11.0-16.0) % Plt Count (160-400) X10*3/uL MPV (9.4-12.4) fL Immature Gran % (Auto) (0.0-0.4) % Neut % (Auto) (45-73) % Lymph % (Auto) (20-40) % [place] % (Auto) (2-11) % Eos % (Auto) (0-4) % Baso % (Auto) (0-2) % Lymph # (Auto) (1.2-4.9) X10*3/uL [place] # (Auto) (0.1-1.2) X10*3/uL Eos # (Auto) (0.0-0.4) X10*3/uL Baso # (Auto) (0.0-0.2) X10*3/uL Abs Immat Gran (auto) (0.00-0.03) X10*3/uL Absolute Neuts (auto) (2.0-8.3) x10*3/uL Absolute Nucleated RBC (0.0-0.012) X10*3/uL Nucleated RBC % (auto) (0.0-0.2) /100WBC Sodium (135-145) mmol/L Potassium (3.3-5.1) mmol/L Chloride (96-108) mmol/L Carbon Dioxide (22-29) mmol/L Anion Gap (12-20) BUN (9-16) mg/dL Creatinine (0.5-1.4) mg/dL Estim Creat Clear Calc Estimated GFR POC Glucose 195 H (60-115) mg/dL Random Glucose (60-115) mg/dL Lactic Acid (0.5-2.0) mmol/L Calcium (8.4-10.2) mg/dL Total Bilirubin (0.0-1.0) mg/dL AST (5-37) U/L ALT (0-40) U/L Alkaline Phosphatase (39-117) U/L Troponin I High Sens 19.5 17.7 (<3.5-35.0) ng/L Total Protein (6.5-8.0) g/dL Albumin (3.5-5.0) g/dL Urine Color Urine Appearance Urine pH (5.0-9.0) Ur Specific [place] (1.005-1.025) Urine Protein (Neg-Trace) mg/dL Urine Glucose (UA) (Negative) mg/dL Urine Ketones (Negative) mg/dL Urine Blood (Negative) Urine Nitrite (Negative) Ur Leukocyte Esterase (Negative) Urine RBC (0-2) /HPF Urine WBC (0-5) /HPF Ur Squamous Epith Cells (0-2) /HPF Urine Bacteria (None Seen) Hyaline Casts (0-2) /LPF COVID-19 (JOANN) (Negative) COVID-19 Clin Com 02/21/23 02/21/23 02/21/23 Range/Units 07:04 08:36 08:36 WBC 5.2 (4.8-10.8) X10*3/uL RBC 4.87 (4.60-5.80) X10*6/uL Hgb 15.4 (14.0-18.0) g/dl Hct 45.2 (42.0-52.0) % MCV 92.8 (80.0-98.0) fL MCH 31.6 (27.0-33.0) pg MCHC 34.1 (31.0-36.0) g/dl RDW 13.3 (11.0-16.0) % Plt Count 83 L (160-400) X10*3/uL MPV 10.7 (9.4-12.4) fL Immature Gran % (Auto) 0.2 (0.0-0.4) % Neut % (Auto) 74.9 H (45-73) % Lymph % (Auto) 11.6 L (20-40) % [place] % (Auto) 9.8 (2-11) % Eos % (Auto) 2.9 (0-4) % Baso % (Auto) 0.6 (0-2) % Lymph # (Auto) 0.6 L (1.2-4.9) X10*3/uL [place] # (Auto) 0.5 (0.1-1.2) X10*3/uL Eos # (Auto) 0.2 (0.0-0.4) X10*3/uL Baso # (Auto) 0.0 (0.0-0.2) X10*3/uL Abs Immat Gran (auto) 0.01 (0.00-0.03) X10*3/uL Absolute Neuts (auto) 3.9 (2.0-8.3) x10*3/uL Absolute Nucleated RBC 0.000 (0.0-0.012) X10*3/uL Nucleated RBC % (auto) 0.0 (0.0-0.2) /100WBC Sodium 137 (135-145) mmol/L Potassium 4.0 (3.3-5.1) mmol/L Chloride 102 (96-108) mmol/L Carbon Dioxide 28 (22-29) mmol/L Anion Gap 11 L (12-20) BUN 18 H (9-16) mg/dL Creatinine 1.16 (0.5-1.4) mg/dL Estim Creat Clear Calc 46.6 Estimated GFR 60 POC Glucose 148 H (60-115) mg/dL Random Glucose 158 H (60-115) mg/dL Lactic Acid (0.5-2.0) mmol/L Calcium 8.5 (8.4-10.2) mg/dL Total Bilirubin (0.0-1.0) mg/dL AST (5-37) U/L ALT (0-40) U/L Alkaline Phosphatase (39-117) U/L Troponin I High Sens (<3.5-35.0) ng/L Total Protein (6.5-8.0) g/dL Albumin (3.5-5.0) g/dL Urine Color Urine Appearance Urine pH (5.0-9.0) Ur Specific [place] (1.005-1.025) Urine Protein (Neg-Trace) mg/dL Urine Glucose (UA) (Negative) mg/dL Urine Ketones (Negative) mg/dL Urine Blood (Negative) Urine Nitrite (Negative) Ur Leukocyte Esterase (Negative) Urine RBC (0-2) /HPF Urine WBC (0-5) /HPF Ur Squamous Epith Cells (0-2) /HPF Urine Bacteria (None Seen) Hyaline Casts (0-2) /LPF COVID-19 (JOANN) (Negative) COVID-19 Clin Com 02/21/23 02/21/23 02/21/23 Range/Units 08:36 08:36 09:42 WBC (4.8-10.8) X10*3/uL RBC (4.60-5.80) X10*6/uL Hgb (14.0-18.0) g/dl Hct (42.0-52.0) % MCV (80.0-98.0) fL MCH (27.0-33.0) pg MCHC (31.0-36.0) g/dl RDW (11.0-16.0) % Plt Count (160-400) X10*3/uL MPV (9.4-12.4) fL Immature Gran % (Auto) (0.0-0.4) % Neut % (Auto) (45-73) % Lymph % (Auto) (20-40) % [place] % (Auto) (2-11) % Eos % (Auto) (0-4) % Baso % (Auto) (0-2) % Lymph # (Auto) (1.2-4.9) X10*3/uL [place] # (Auto) (0.1-1.2) X10*3/uL Eos # (Auto) (0.0-0.4) X10*3/uL Baso # (Auto) (0.0-0.2) X10*3/uL Abs Immat Gran (auto) (0.00-0.03) X10*3/uL Absolute Neuts (auto) (2.0-8.3) x10*3/uL Absolute Nucleated RBC (0.0-0.012) X10*3/uL Nucleated RBC % (auto) (0.0-0.2) /100WBC Sodium (135-145) mmol/L Potassium (3.3-5.1) mmol/L Chloride (96-108) mmol/L Carbon Dioxide (22-29) mmol/L Anion Gap (12-20) BUN (9-16) mg/dL Creatinine (0.5-1.4) mg/dL Estim Creat Clear Calc Estimated GFR POC Glucose (60-115) mg/dL Random Glucose (60-115) mg/dL Lactic Acid 1.6 (0.5-2.0) mmol/L Calcium (8.4-10.2) mg/dL Total Bilirubin (0.0-1.0) mg/dL AST (5-37) U/L ALT (0-40) U/L Alkaline Phosphatase (39-117) U/L Troponin I High Sens 18.4 (<3.5-35.0) ng/L Total Protein (6.5-8.0) g/dL Albumin (3.5-5.0) g/dL Urine Color Yellow Urine Appearance Clear Urine pH 7.0 (5.0-9.0) Ur Specific [place] 1.015 (1.005-1.025) Urine Protein Negative (Neg-Trace) mg/dL Urine Glucose (UA) Negative (Negative) mg/dL Urine Ketones Negative (Negative) mg/dL Urine Blood Trace H (Negative) Urine Nitrite Negative (Negative) Ur Leukocyte Esterase Negative (Negative) Urine RBC 3-5 H (0-2) /HPF Urine WBC 0-5 (0-5) /HPF Ur Squamous Epith Cells 0-2 (0-2) /HPF Urine Bacteria None Seen (None Seen) Hyaline Casts 3-5 (0-2) /LPF COVID-19 (JOANN) (Negative) COVID-19 Clin Com 02/21/23 02/21/23 02/21/23 Range/Units 13:10 18:39 21:40 WBC (4.8-10.8) X10*3/uL RBC (4.60-5.80) X10*6/uL Hgb (14.0-18.0) g/dl Hct (42.0-52.0) % MCV (80.0-98.0) fL MCH (27.0-33.0) pg MCHC (31.0-36.0) g/dl RDW (11.0-16.0) % Plt Count (160-400) X10*3/uL MPV (9.4-12.4) fL Immature Gran % (Auto) (0.0-0.4) % Neut % (Auto) (45-73) % Lymph % (Auto) (20-40) % [place] % (Auto) (2-11) % Eos % (Auto) (0-4) % Baso % (Auto) (0-2) % Lymph # (Auto) (1.2-4.9) X10*3/uL [place] # (Auto) (0.1-1.2) X10*3/uL Eos # (Auto) (0.0-0.4) X10*3/uL Baso # (Auto) (0.0-0.2) X10*3/uL Abs Immat Gran (auto) (0.00-0.03) X10*3/uL Absolute Neuts (auto) (2.0-8.3) x10*3/uL Absolute Nucleated RBC (0.0-0.012) X10*3/uL Nucleated RBC % (auto) (0.0-0.2) /100WBC Sodium (135-145) mmol/L Potassium (3.3-5.1) mmol/L Chloride (96-108) mmol/L Carbon Dioxide (22-29) mmol/L Anion Gap (12-20) BUN (9-16) mg/dL Creatinine (0.5-1.4) mg/dL Estim Creat Clear Calc Estimated GFR POC Glucose 148 H 164 H 163 H (60-115) mg/dL Random Glucose (60-115) mg/dL Lactic Acid (0.5-2.0) mmol/L Calcium (8.4-10.2) mg/dL Total Bilirubin (0.0-1.0) mg/dL AST (5-37) U/L ALT (0-40) U/L Alkaline Phosphatase (39-117) U/L Troponin I High Sens (<3.5-35.0) ng/L Total Protein (6.5-8.0) g/dL Albumin (3.5-5.0) g/dL Urine Color Urine Appearance Urine pH (5.0-9.0) Ur Specific [place] (1.005-1.025) Urine Protein (Neg-Trace) mg/dL Urine Glucose (UA) (Negative) mg/dL Urine Ketones (Negative) mg/dL Urine Blood (Negative) Urine Nitrite (Negative) Ur Leukocyte Esterase (Negative) Urine RBC (0-2) /HPF Urine WBC (0-5) /HPF Ur Squamous Epith Cells (0-2) /HPF Urine Bacteria (None Seen) Hyaline Casts (0-2) /LPF COVID-19 (JOANN) (Negative) COVID-19 Clin Com 02/22/23 02/22/23 Range/Units 09:12 13:51 WBC (4.8-10.8) X10*3/uL RBC (4.60-5.80) X10*6/uL Hgb (14.0-18.0) g/dl Hct (42.0-52.0) % MCV (80.0-98.0) fL MCH (27.0-33.0) pg MCHC (31.0-36.0) g/dl RDW (11.0-16.0) % Plt Count (160-400) X10*3/uL MPV (9.4-12.4) fL Immature Gran % (Auto) (0.0-0.4) % Neut % (Auto) (45-73) % Lymph % (Auto) (20-40) % [place] % (Auto) (2-11) % Eos % (Auto) (0-4) % Baso % (Auto) (0-2) % Lymph # (Auto) (1.2-4.9) X10*3/uL [place] # (Auto) (0.1-1.2) X10*3/uL Eos # (Auto) (0.0-0.4) X10*3/uL Baso # (Auto) (0.0-0.2) X10*3/uL Abs Immat Gran (auto) (0.00-0.03) X10*3/uL Absolute Neuts (auto) (2.0-8.3) x10*3/uL Absolute Nucleated RBC (0.0-0.012) X10*3/uL Nucleated RBC % (auto) (0.0-0.2) /100WBC Sodium (135-145) mmol/L Potassium (3.3-5.1) mmol/L Chloride (96-108) mmol/L Carbon Dioxide (22-29) mmol/L Anion Gap (12-20) BUN (9-16) mg/dL Creatinine (0.5-1.4) mg/dL Estim Creat Clear Calc Estimated GFR POC Glucose 136 H 113 (60-115) mg/dL Random Glucose (60-115) mg/dL Lactic Acid (0.5-2.0) mmol/L Calcium (8.4-10.2) mg/dL Total Bilirubin (0.0-1.0) mg/dL AST (5-37) U/L ALT (0-40) U/L Alkaline Phosphatase (39-117) U/L Troponin I High Sens (<3.5-35.0) ng/L Total Protein (6.5-8.0) g/dL Albumin (3.5-5.0) g/dL Urine Color Urine Appearance Urine pH (5.0-9.0) Ur Specific [place] (1.005-1.025) Urine Protein (Neg-Trace) mg/dL Urine Glucose (UA) (Negative) mg/dL Urine Ketones (Negative) mg/dL Urine Blood (Negative) Urine Nitrite (Negative) Ur Leukocyte Esterase (Negative) Urine RBC (0-2) /HPF Urine WBC (0-5) /HPF Ur Squamous Epith Cells (0-2) /HPF Urine Bacteria (None Seen) Hyaline Casts (0-2) /LPF COVID-19 (JOANN) (Negative) COVID-19 Clin Com <ALEKSANDR Campos - Last Filed: 02/20/23 08:51> Lab Results 02/19/23 02/19/23 02/19/23 Range/Units 08:25 08:25 08:25 WBC 5.6 (4.8-10.8) X10*3/uL RBC 4.90 (4.60-5.80) X10*6/uL Hgb 15.7 (14.0-18.0) g/dl Hct 45.5 (42.0-52.0) % MCV 92.9 (80.0-98.0) fL MCH 32.0 (27.0-33.0) pg MCHC 34.5 (31.0-36.0) g/dl RDW 13.4 (11.0-16.0) % Plt Count 97 L (160-400) X10*3/uL MPV 11.1 (9.4-12.4) fL Immature Gran % (Auto) 0.2 (0.0-0.4) % Neut % (Auto) 67.7 (45-73) % Lymph % (Auto) 15.8 L (20-40) % [place] % (Auto) 10.6 (2-11) % Eos % (Auto) 4.8 H (0-4) % Baso % (Auto) 0.9 (0-2) % Lymph # (Auto) 0.9 L (1.2-4.9) X10*3/uL [place] # (Auto) 0.6 (0.1-1.2) X10*3/uL Eos # (Auto) 0.3 (0.0-0.4) X10*3/uL Baso # (Auto) 0.1 (0.0-0.2) X10*3/uL Abs Immat Gran (auto) 0.01 (0.00-0.03) X10*3/uL Absolute Neuts (auto) 3.8 (2.0-8.3) x10*3/uL Absolute Nucleated RBC 0.000 (0.0-0.012) X10*3/uL Nucleated RBC % (auto) 0.0 (0.0-0.2) /100WBC Sodium 140 (135-145) mmol/L Potassium 3.6 (3.3-5.1) mmol/L Chloride 101 (96-108) mmol/L Carbon Dioxide 30 H (22-29) mmol/L Anion Gap 13 (12-20) BUN 16 (9-16) mg/dL Creatinine 1.36 (0.5-1.4) mg/dL Estim Creat Clear Calc 39.7 Estimated GFR 50 POC Glucose (60-115) mg/dL Random Glucose 154 H (60-115) mg/dL Lactic Acid (0.5-2.0) mmol/L Calcium 8.5 D (8.4-10.2) mg/dL Total Bilirubin 1.8 H (0.0-1.0) mg/dL AST 37 (5-37) U/L ALT 32 (0-40) U/L Alkaline Phosphatase 89 (39-117) U/L Troponin I High Sens (<3.5-35.0) ng/L Total Protein 5.4 L (6.5-8.0) g/dL Albumin 3.7 (3.5-5.0) g/dL Urine Color Urine Appearance Urine pH (5.0-9.0) Ur Specific [place] (1.005-1.025) Urine Protein (Neg-Trace) mg/dL Urine Glucose (UA) (Negative) mg/dL Urine Ketones (Negative) mg/dL Urine Blood (Negative) Urine Nitrite (Negative) Ur Leukocyte Esterase (Negative) Urine RBC (0-2) /HPF Urine WBC (0-5) /HPF Ur Squamous Epith Cells (0-2) /HPF Urine Bacteria (None Seen) Hyaline Casts (0-2) /LPF COVID-19 (JOANN) Negative (Negative) COVID-19 Clin Com See Note 02/19/23 02/19/23 02/20/23 Range/Units 09:17 20:13 06:15 WBC (4.8-10.8) X10*3/uL RBC (4.60-5.80) X10*6/uL Hgb (14.0-18.0) g/dl Hct (42.0-52.0) % MCV (80.0-98.0) fL MCH (27.0-33.0) pg MCHC (31.0-36.0) g/dl RDW (11.0-16.0) % Plt Count (160-400) X10*3/uL MPV (9.4-12.4) fL Immature Gran % (Auto) (0.0-0.4) % Neut % (Auto) (45-73) % Lymph % (Auto) (20-40) % [place] % (Auto) (2-11) % Eos % (Auto) (0-4) % Baso % (Auto) (0-2) % Lymph # (Auto) (1.2-4.9) X10*3/uL [place] # (Auto) (0.1-1.2) X10*3/uL Eos # (Auto) (0.0-0.4) X10*3/uL Baso # (Auto) (0.0-0.2) X10*3/uL Abs Immat Gran (auto) (0.00-0.03) X10*3/uL Absolute Neuts (auto) (2.0-8.3) x10*3/uL Absolute Nucleated RBC (0.0-0.012) X10*3/uL Nucleated RBC % (auto) (0.0-0.2) /100WBC Sodium (135-145) mmol/L Potassium (3.3-5.1) mmol/L Chloride (96-108) mmol/L Carbon Dioxide (22-29) mmol/L Anion Gap (12-20) BUN (9-16) mg/dL Creatinine (0.5-1.4) mg/dL Estim Creat Clear Calc Estimated GFR POC Glucose 184 H 123 H (60-115) mg/dL Random Glucose (60-115) mg/dL Lactic Acid (0.5-2.0) mmol/L Calcium (8.4-10.2) mg/dL Total Bilirubin (0.0-1.0) mg/dL AST (5-37) U/L ALT (0-40) U/L Alkaline Phosphatase (39-117) U/L Troponin I High Sens (<3.5-35.0) ng/L Total Protein (6.5-8.0) g/dL Albumin (3.5-5.0) g/dL Urine Color Yellow Urine Appearance Clear Urine pH 7.0 (5.0-9.0) Ur Specific [place] 1.010 (1.005-1.025) Urine Protein Negative (Neg-Trace) mg/dL Urine Glucose (UA) Negative (Negative) mg/dL Urine Ketones Negative (Negative) mg/dL Urine Blood Negative (Negative) Urine Nitrite Negative (Negative) Ur Leukocyte Esterase Negative (Negative) Urine RBC (0-2) /HPF Urine WBC (0-5) /HPF Ur Squamous Epith Cells (0-2) /HPF Urine Bacteria (None Seen) Hyaline Casts (0-2) /LPF COVID-19 (JOANN) (Negative) COVID-19 Clin Com 02/20/23 02/20/23 02/20/23 Range/Units 12:51 17:58 20:49 WBC (4.8-10.8) X10*3/uL RBC (4.60-5.80) X10*6/uL Hgb (14.0-18.0) g/dl Hct (42.0-52.0) % MCV (80.0-98.0) fL MCH (27.0-33.0) pg MCHC (31.0-36.0) g/dl RDW (11.0-16.0) % Plt Count (160-400) X10*3/uL MPV (9.4-12.4) fL Immature Gran % (Auto) (0.0-0.4) % Neut % (Auto) (45-73) % Lymph % (Auto) (20-40) % [place] % (Auto) (2-11) % Eos % (Auto) (0-4) % Baso % (Auto) (0-2) % Lymph # (Auto) (1.2-4.9) X10*3/uL [place] # (Auto) (0.1-1.2) X10*3/uL Eos # (Auto) (0.0-0.4) X10*3/uL Baso # (Auto) (0.0-0.2) X10*3/uL Abs Immat Gran (auto) (0.00-0.03) X10*3/uL Absolute Neuts (auto) (2.0-8.3) x10*3/uL Absolute Nucleated RBC (0.0-0.012) X10*3/uL Nucleated RBC % (auto) (0.0-0.2) /100WBC Sodium (135-145) mmol/L Potassium (3.3-5.1) mmol/L Chloride (96-108) mmol/L Carbon Dioxide (22-29) mmol/L Anion Gap (12-20) BUN (9-16) mg/dL Creatinine (0.5-1.4) mg/dL Estim Creat Clear Calc Estimated GFR POC Glucose 150 H 159 H 143 H (60-115) mg/dL Random Glucose (60-115) mg/dL Lactic Acid (0.5-2.0) mmol/L Calcium (8.4-10.2) mg/dL Total Bilirubin (0.0-1.0) mg/dL AST (5-37) U/L ALT (0-40) U/L Alkaline Phosphatase (39-117) U/L Troponin I High Sens (<3.5-35.0) ng/L Total Protein (6.5-8.0) g/dL Albumin (3.5-5.0) g/dL Urine Color Urine Appearance Urine pH (5.0-9.0) Ur Specific [place] (1.005-1.025) Urine Protein (Neg-Trace) mg/dL Urine Glucose (UA) (Negative) mg/dL Urine Ketones (Negative) mg/dL Urine Blood (Negative) Urine Nitrite (Negative) Ur Leukocyte Esterase (Negative) Urine RBC (0-2) /HPF Urine WBC (0-5) /HPF Ur Squamous Epith Cells (0-2) /HPF Urine Bacteria (None Seen) Hyaline Casts (0-2) /LPF COVID-19 (JOANN) (Negative) COVID-19 Clin Com 02/21/23 02/21/23 02/21/23 Range/Units 02:42 03:24 06:29 WBC (4.8-10.8) X10*3/uL RBC (4.60-5.80) X10*6/uL Hgb (14.0-18.0) g/dl Hct (42.0-52.0) % MCV (80.0-98.0) fL MCH (27.0-33.0) pg MCHC (31.0-36.0) g/dl RDW (11.0-16.0) % Plt Count (160-400) X10*3/uL MPV (9.4-12.4) fL Immature Gran % (Auto) (0.0-0.4) % Neut % (Auto) (45-73) % Lymph % (Auto) (20-40) % [place] % (Auto) (2-11) % Eos % (Auto) (0-4) % Baso % (Auto) (0-2) % Lymph # (Auto) (1.2-4.9) X10*3/uL [place] # (Auto) (0.1-1.2) X10*3/uL Eos # (Auto) (0.0-0.4) X10*3/uL Baso # (Auto) (0.0-0.2) X10*3/uL Abs Immat Gran (auto) (0.00-0.03) X10*3/uL Absolute Neuts (auto) (2.0-8.3) x10*3/uL Absolute Nucleated RBC (0.0-0.012) X10*3/uL Nucleated RBC % (auto) (0.0-0.2) /100WBC Sodium (135-145) mmol/L Potassium (3.3-5.1) mmol/L Chloride (96-108) mmol/L Carbon Dioxide (22-29) mmol/L Anion Gap (12-20) BUN (9-16) mg/dL Creatinine (0.5-1.4) mg/dL Estim Creat Clear Calc Estimated GFR POC Glucose 195 H (60-115) mg/dL Random Glucose (60-115) mg/dL Lactic Acid (0.5-2.0) mmol/L Calcium (8.4-10.2) mg/dL Total Bilirubin (0.0-1.0) mg/dL AST (5-37) U/L ALT (0-40) U/L Alkaline Phosphatase (39-117) U/L Troponin I High Sens 19.5 17.7 (<3.5-35.0) ng/L Total Protein (6.5-8.0) g/dL Albumin (3.5-5.0) g/dL Urine Color Urine Appearance Urine pH (5.0-9.0) Ur Specific [place] (1.005-1.025) Urine Protein (Neg-Trace) mg/dL Urine Glucose (UA) (Negative) mg/dL Urine Ketones (Negative) mg/dL Urine Blood (Negative) Urine Nitrite (Negative) Ur Leukocyte Esterase (Negative) Urine RBC (0-2) /HPF Urine WBC (0-5) /HPF Ur Squamous Epith Cells (0-2) /HPF Urine Bacteria (None Seen) Hyaline Casts (0-2) /LPF COVID-19 (JOANN) (Negative) COVID-19 Clin Com 02/21/23 02/21/23 02/21/23 Range/Units 07:04 08:36 08:36 WBC 5.2 (4.8-10.8) X10*3/uL RBC 4.87 (4.60-5.80) X10*6/uL Hgb 15.4 (14.0-18.0) g/dl Hct 45.2 (42.0-52.0) % MCV 92.8 (80.0-98.0) fL MCH 31.6 (27.0-33.0) pg MCHC 34.1 (31.0-36.0) g/dl RDW 13.3 (11.0-16.0) % Plt Count 83 L (160-400) X10*3/uL MPV 10.7 (9.4-12.4) fL Immature Gran % (Auto) 0.2 (0.0-0.4) % Neut % (Auto) 74.9 H (45-73) % Lymph % (Auto) 11.6 L (20-40) % [place] % (Auto) 9.8 (2-11) % Eos % (Auto) 2.9 (0-4) % Baso % (Auto) 0.6 (0-2) % Lymph # (Auto) 0.6 L (1.2-4.9) X10*3/uL [place] # (Auto) 0.5 (0.1-1.2) X10*3/uL Eos # (Auto) 0.2 (0.0-0.4) X10*3/uL Baso # (Auto) 0.0 (0.0-0.2) X10*3/uL Abs Immat Gran (auto) 0.01 (0.00-0.03) X10*3/uL Absolute Neuts (auto) 3.9 (2.0-8.3) x10*3/uL Absolute Nucleated RBC 0.000 (0.0-0.012) X10*3/uL Nucleated RBC % (auto) 0.0 (0.0-0.2) /100WBC Sodium 137 (135-145) mmol/L Potassium 4.0 (3.3-5.1) mmol/L Chloride 102 (96-108) mmol/L Carbon Dioxide 28 (22-29) mmol/L Anion Gap 11 L (12-20) BUN 18 H (9-16) mg/dL Creatinine 1.16 (0.5-1.4) mg/dL Estim Creat Clear Calc 46.6 Estimated GFR 60 POC Glucose 148 H (60-115) mg/dL Random Glucose 158 H (60-115) mg/dL Lactic Acid (0.5-2.0) mmol/L Calcium 8.5 (8.4-10.2) mg/dL Total Bilirubin (0.0-1.0) mg/dL AST (5-37) U/L ALT (0-40) U/L Alkaline Phosphatase (39-117) U/L Troponin I High Sens (<3.5-35.0) ng/L Total Protein (6.5-8.0) g/dL Albumin (3.5-5.0) g/dL Urine Color Urine Appearance Urine pH (5.0-9.0) Ur Specific [place] (1.005-1.025) Urine Protein (Neg-Trace) mg/dL Urine Glucose (UA) (Negative) mg/dL Urine Ketones (Negative) mg/dL Urine Blood (Negative) Urine Nitrite (Negative) Ur Leukocyte Esterase (Negative) Urine RBC (0-2) /HPF Urine WBC (0-5) /HPF Ur Squamous Epith Cells (0-2) /HPF Urine Bacteria (None Seen) Hyaline Casts (0-2) /LPF COVID-19 (JOANN) (Negative) COVID-19 Clin Com 02/21/23 02/21/23 02/21/23 Range/Units 08:36 08:36 09:42 WBC (4.8-10.8) X10*3/uL RBC (4.60-5.80) X10*6/uL Hgb (14.0-18.0) g/dl Hct (42.0-52.0) % MCV (80.0-98.0) fL MCH (27.0-33.0) pg MCHC (31.0-36.0) g/dl RDW (11.0-16.0) % Plt Count (160-400) X10*3/uL MPV (9.4-12.4) fL Immature Gran % (Auto) (0.0-0.4) % Neut % (Auto) (45-73) % Lymph % (Auto) (20-40) % [place] % (Auto) (2-11) % Eos % (Auto) (0-4) % Baso % (Auto) (0-2) % Lymph # (Auto) (1.2-4.9) X10*3/uL [place] # (Auto) (0.1-1.2) X10*3/uL Eos # (Auto) (0.0-0.4) X10*3/uL Baso # (Auto) (0.0-0.2) X10*3/uL Abs Immat Gran (auto) (0.00-0.03) X10*3/uL Absolute Neuts (auto) (2.0-8.3) x10*3/uL Absolute Nucleated RBC (0.0-0.012) X10*3/uL Nucleated RBC % (auto) (0.0-0.2) /100WBC Sodium (135-145) mmol/L Potassium (3.3-5.1) mmol/L Chloride (96-108) mmol/L Carbon Dioxide (22-29) mmol/L Anion Gap (12-20) BUN (9-16) mg/dL Creatinine (0.5-1.4) mg/dL Estim Creat Clear Calc Estimated GFR POC Glucose (60-115) mg/dL Random Glucose (60-115) mg/dL Lactic Acid 1.6 (0.5-2.0) mmol/L Calcium (8.4-10.2) mg/dL Total Bilirubin (0.0-1.0) mg/dL AST (5-37) U/L ALT (0-40) U/L Alkaline Phosphatase (39-117) U/L Troponin I High Sens 18.4 (<3.5-35.0) ng/L Total Protein (6.5-8.0) g/dL Albumin (3.5-5.0) g/dL Urine Color Yellow Urine Appearance Clear Urine pH 7.0 (5.0-9.0) Ur Specific [place] 1.015 (1.005-1.025) Urine Protein Negative (Neg-Trace) mg/dL Urine Glucose (UA) Negative (Negative) mg/dL Urine Ketones Negative (Negative) mg/dL Urine Blood Trace H (Negative) Urine Nitrite Negative (Negative) Ur Leukocyte Esterase Negative (Negative) Urine RBC 3-5 H (0-2) /HPF Urine WBC 0-5 (0-5) /HPF Ur Squamous Epith Cells 0-2 (0-2) /HPF Urine Bacteria None Seen (None Seen) Hyaline Casts 3-5 (0-2) /LPF COVID-19 (JOANN) (Negative) COVID-19 Clin Com 02/21/23 02/21/23 02/21/23 Range/Units 13:10 18:39 21:40 WBC (4.8-10.8) X10*3/uL RBC (4.60-5.80) X10*6/uL Hgb (14.0-18.0) g/dl Hct (42.0-52.0) % MCV (80.0-98.0) fL MCH (27.0-33.0) pg MCHC (31.0-36.0) g/dl RDW (11.0-16.0) % Plt Count (160-400) X10*3/uL MPV (9.4-12.4) fL Immature Gran % (Auto) (0.0-0.4) % Neut % (Auto) (45-73) % Lymph % (Auto) (20-40) % [place] % (Auto) (2-11) % Eos % (Auto) (0-4) % Baso % (Auto) (0-2) % Lymph # (Auto) (1.2-4.9) X10*3/uL [place] # (Auto) (0.1-1.2) X10*3/uL Eos # (Auto) (0.0-0.4) X10*3/uL Baso # (Auto) (0.0-0.2) X10*3/uL Abs Immat Gran (auto) (0.00-0.03) X10*3/uL Absolute Neuts (auto) (2.0-8.3) x10*3/uL Absolute Nucleated RBC (0.0-0.012) X10*3/uL Nucleated RBC % (auto) (0.0-0.2) /100WBC Sodium (135-145) mmol/L Potassium (3.3-5.1) mmol/L Chloride (96-108) mmol/L Carbon Dioxide (22-29) mmol/L Anion Gap (12-20) BUN (9-16) mg/dL Creatinine (0.5-1.4) mg/dL Estim Creat Clear Calc Estimated GFR POC Glucose 148 H 164 H 163 H (60-115) mg/dL Random Glucose (60-115) mg/dL Lactic Acid (0.5-2.0) mmol/L Calcium (8.4-10.2) mg/dL Total Bilirubin (0.0-1.0) mg/dL AST (5-37) U/L ALT (0-40) U/L Alkaline Phosphatase (39-117) U/L Troponin I High Sens (<3.5-35.0) ng/L Total Protein (6.5-8.0) g/dL Albumin (3.5-5.0) g/dL Urine Color Urine Appearance Urine pH (5.0-9.0) Ur Specific [place] (1.005-1.025) Urine Protein (Neg-Trace) mg/dL Urine Glucose (UA) (Negative) mg/dL Urine Ketones (Negative) mg/dL Urine Blood (Negative) Urine Nitrite (Negative) Ur Leukocyte Esterase (Negative) Urine RBC (0-2) /HPF Urine WBC (0-5) /HPF Ur Squamous Epith Cells (0-2) /HPF Urine Bacteria (None Seen) Hyaline Casts (0-2) /LPF COVID-19 (JOANN) (Negative) COVID-19 Clin Com 02/22/23 02/22/23 Range/Units 09:12 13:51 WBC (4.8-10.8) X10*3/uL RBC (4.60-5.80) X10*6/uL Hgb (14.0-18.0) g/dl Hct (42.0-52.0) % MCV (80.0-98.0) fL MCH (27.0-33.0) pg MCHC (31.0-36.0) g/dl RDW (11.0-16.0) % Plt Count (160-400) X10*3/uL MPV (9.4-12.4) fL Immature Gran % (Auto) (0.0-0.4) % Neut % (Auto) (45-73) % Lymph % (Auto) (20-40) % [place] % (Auto) (2-11) % Eos % (Auto) (0-4) % Baso % (Auto) (0-2) % Lymph # (Auto) (1.2-4.9) X10*3/uL [place] # (Auto) (0.1-1.2) X10*3/uL Eos # (Auto) (0.0-0.4) X10*3/uL Baso # (Auto) (0.0-0.2) X10*3/uL Abs Immat Gran (auto) (0.00-0.03) X10*3/uL Absolute Neuts (auto) (2.0-8.3) x10*3/uL Absolute Nucleated RBC (0.0-0.012) X10*3/uL Nucleated RBC % (auto) (0.0-0.2) /100WBC Sodium (135-145) mmol/L Potassium (3.3-5.1) mmol/L Chloride (96-108) mmol/L Carbon Dioxide (22-29) mmol/L Anion Gap (12-20) BUN (9-16) mg/dL Creatinine (0.5-1.4) mg/dL Estim Creat Clear Calc Estimated GFR POC Glucose 136 H 113 (60-115) mg/dL Random Glucose (60-115) mg/dL Lactic Acid (0.5-2.0) mmol/L Calcium (8.4-10.2) mg/dL Total Bilirubin (0.0-1.0) mg/dL AST (5-37) U/L ALT (0-40) U/L Alkaline Phosphatase (39-117) U/L Troponin I High Sens (<3.5-35.0) ng/L Total Protein (6.5-8.0) g/dL Albumin (3.5-5.0) g/dL Urine Color Urine Appearance Urine pH (5.0-9.0) Ur Specific [place] (1.005-1.025) Urine Protein (Neg-Trace) mg/dL Urine Glucose (UA) (Negative) mg/dL Urine Ketones (Negative) mg/dL Urine Blood (Negative) Urine Nitrite (Negative) Ur Leukocyte Esterase (Negative) Urine RBC (0-2) /HPF Urine WBC (0-5) /HPF Ur Squamous Epith Cells (0-2) /HPF Urine Bacteria (None Seen) Hyaline Casts (0-2) /LPF COVID-19 (JOANN) (Negative) COVID-19 Clin Com <Faustino Hernandez MD - Last Filed: 02/21/23 03:01> Lab Results 02/19/23 02/19/23 02/19/23 Range/Units 08:25 08:25 08:25 WBC 5.6 (4.8-10.8) X10*3/uL RBC 4.90 (4.60-5.80) X10*6/uL Hgb 15.7 (14.0-18.0) g/dl Hct 45.5 (42.0-52.0) % MCV 92.9 (80.0-98.0) fL MCH 32.0 (27.0-33.0) pg MCHC 34.5 (31.0-36.0) g/dl RDW 13.4 (11.0-16.0) % Plt Count 97 L (160-400) X10*3/uL MPV 11.1 (9.4-12.4) fL Immature Gran % (Auto) 0.2 (0.0-0.4) % Neut % (Auto) 67.7 (45-73) % Lymph % (Auto) 15.8 L (20-40) % [place] % (Auto) 10.6 (2-11) % Eos % (Auto) 4.8 H (0-4) % Baso % (Auto) 0.9 (0-2) % Lymph # (Auto) 0.9 L (1.2-4.9) X10*3/uL [place] # (Auto) 0.6 (0.1-1.2) X10*3/uL Eos # (Auto) 0.3 (0.0-0.4) X10*3/uL Baso # (Auto) 0.1 (0.0-0.2) X10*3/uL Abs Immat Gran (auto) 0.01 (0.00-0.03) X10*3/uL Absolute Neuts (auto) 3.8 (2.0-8.3) x10*3/uL Absolute Nucleated RBC 0.000 (0.0-0.012) X10*3/uL Nucleated RBC % (auto) 0.0 (0.0-0.2) /100WBC Sodium 140 (135-145) mmol/L Potassium 3.6 (3.3-5.1) mmol/L Chloride 101 (96-108) mmol/L Carbon Dioxide 30 H (22-29) mmol/L Anion Gap 13 (12-20) BUN 16 (9-16) mg/dL Creatinine 1.36 (0.5-1.4) mg/dL Estim Creat Clear Calc 39.7 Estimated GFR 50 POC Glucose (60-115) mg/dL Random Glucose 154 H (60-115) mg/dL Lactic Acid (0.5-2.0) mmol/L Calcium 8.5 D (8.4-10.2) mg/dL Total Bilirubin 1.8 H (0.0-1.0) mg/dL AST 37 (5-37) U/L ALT 32 (0-40) U/L Alkaline Phosphatase 89 (39-117) U/L Troponin I High Sens (<3.5-35.0) ng/L Total Protein 5.4 L (6.5-8.0) g/dL Albumin 3.7 (3.5-5.0) g/dL Urine Color Urine Appearance Urine pH (5.0-9.0) Ur Specific [place] (1.005-1.025) Urine Protein (Neg-Trace) mg/dL Urine Glucose (UA) (Negative) mg/dL Urine Ketones (Negative) mg/dL Urine Blood (Negative) Urine Nitrite (Negative) Ur Leukocyte Esterase (Negative) Urine RBC (0-2) /HPF Urine WBC (0-5) /HPF Ur Squamous Epith Cells (0-2) /HPF Urine Bacteria (None Seen) Hyaline Casts (0-2) /LPF COVID-19 (JOANN) Negative (Negative) COVID-19 Clin Com See Note 02/19/23 02/19/23 02/20/23 Range/Units 09:17 20:13 06:15 WBC (4.8-10.8) X10*3/uL RBC (4.60-5.80) X10*6/uL Hgb (14.0-18.0) g/dl Hct (42.0-52.0) % MCV (80.0-98.0) fL MCH (27.0-33.0) pg MCHC (31.0-36.0) g/dl RDW (11.0-16.0) % Plt Count (160-400) X10*3/uL MPV (9.4-12.4) fL Immature Gran % (Auto) (0.0-0.4) % Neut % (Auto) (45-73) % Lymph % (Auto) (20-40) % [place] % (Auto) (2-11) % Eos % (Auto) (0-4) % Baso % (Auto) (0-2) % Lymph # (Auto) (1.2-4.9) X10*3/uL [place] # (Auto) (0.1-1.2) X10*3/uL Eos # (Auto) (0.0-0.4) X10*3/uL Baso # (Auto) (0.0-0.2) X10*3/uL Abs Immat Gran (auto) (0.00-0.03) X10*3/uL Absolute Neuts (auto) (2.0-8.3) x10*3/uL Absolute Nucleated RBC (0.0-0.012) X10*3/uL Nucleated RBC % (auto) (0.0-0.2) /100WBC Sodium (135-145) mmol/L Potassium (3.3-5.1) mmol/L Chloride (96-108) mmol/L Carbon Dioxide (22-29) mmol/L Anion Gap (12-20) BUN (9-16) mg/dL Creatinine (0.5-1.4) mg/dL Estim Creat Clear Calc Estimated GFR POC Glucose 184 H 123 H (60-115) mg/dL Random Glucose (60-115) mg/dL Lactic Acid (0.5-2.0) mmol/L Calcium (8.4-10.2) mg/dL Total Bilirubin (0.0-1.0) mg/dL AST (5-37) U/L ALT (0-40) U/L Alkaline Phosphatase (39-117) U/L Troponin I High Sens (<3.5-35.0) ng/L Total Protein (6.5-8.0) g/dL Albumin (3.5-5.0) g/dL Urine Color Yellow Urine Appearance Clear Urine pH 7.0 (5.0-9.0) Ur Specific [place] 1.010 (1.005-1.025) Urine Protein Negative (Neg-Trace) mg/dL Urine Glucose (UA) Negative (Negative) mg/dL Urine Ketones Negative (Negative) mg/dL Urine Blood Negative (Negative) Urine Nitrite Negative (Negative) Ur Leukocyte Esterase Negative (Negative) Urine RBC (0-2) /HPF Urine WBC (0-5) /HPF Ur Squamous Epith Cells (0-2) /HPF Urine Bacteria (None Seen) Hyaline Casts (0-2) /LPF COVID-19 (JOANN) (Negative) COVID-19 Clin Com 02/20/23 02/20/23 02/20/23 Range/Units 12:51 17:58 20:49 WBC (4.8-10.8) X10*3/uL RBC (4.60-5.80) X10*6/uL Hgb (14.0-18.0) g/dl Hct (42.0-52.0) % MCV (80.0-98.0) fL MCH (27.0-33.0) pg MCHC (31.0-36.0) g/dl RDW (11.0-16.0) % Plt Count (160-400) X10*3/uL MPV (9.4-12.4) fL Immature Gran % (Auto) (0.0-0.4) % Neut % (Auto) (45-73) % Lymph % (Auto) (20-40) % [place] % (Auto) (2-11) % Eos % (Auto) (0-4) % Baso % (Auto) (0-2) % Lymph # (Auto) (1.2-4.9) X10*3/uL [place] # (Auto) (0.1-1.2) X10*3/uL Eos # (Auto) (0.0-0.4) X10*3/uL Baso # (Auto) (0.0-0.2) X10*3/uL Abs Immat Gran (auto) (0.00-0.03) X10*3/uL Absolute Neuts (auto) (2.0-8.3) x10*3/uL Absolute Nucleated RBC (0.0-0.012) X10*3/uL Nucleated RBC % (auto) (0.0-0.2) /100WBC Sodium (135-145) mmol/L Potassium (3.3-5.1) mmol/L Chloride (96-108) mmol/L Carbon Dioxide (22-29) mmol/L Anion Gap (12-20) BUN (9-16) mg/dL Creatinine (0.5-1.4) mg/dL Estim Creat Clear Calc Estimated GFR POC Glucose 150 H 159 H 143 H (60-115) mg/dL Random Glucose (60-115) mg/dL Lactic Acid (0.5-2.0) mmol/L Calcium (8.4-10.2) mg/dL Total Bilirubin (0.0-1.0) mg/dL AST (5-37) U/L ALT (0-40) U/L Alkaline Phosphatase (39-117) U/L Troponin I High Sens (<3.5-35.0) ng/L Total Protein (6.5-8.0) g/dL Albumin (3.5-5.0) g/dL Urine Color Urine Appearance Urine pH (5.0-9.0) Ur Specific [place] (1.005-1.025) Urine Protein (Neg-Trace) mg/dL Urine Glucose (UA) (Negative) mg/dL Urine Ketones (Negative) mg/dL Urine Blood (Negative) Urine Nitrite (Negative) Ur Leukocyte Esterase (Negative) Urine RBC (0-2) /HPF Urine WBC (0-5) /HPF Ur Squamous Epith Cells (0-2) /HPF Urine Bacteria (None Seen) Hyaline Casts (0-2) /LPF COVID-19 (JOANN) (Negative) COVID-19 Clin Com 02/21/23 02/21/23 02/21/23 Range/Units 02:42 03:24 06:29 WBC (4.8-10.8) X10*3/uL RBC (4.60-5.80) X10*6/uL Hgb (14.0-18.0) g/dl Hct (42.0-52.0) % MCV (80.0-98.0) fL MCH (27.0-33.0) pg MCHC (31.0-36.0) g/dl RDW (11.0-16.0) % Plt Count (160-400) X10*3/uL MPV (9.4-12.4) fL Immature Gran % (Auto) (0.0-0.4) % Neut % (Auto) (45-73) % Lymph % (Auto) (20-40) % [place] % (Auto) (2-11) % Eos % (Auto) (0-4) % Baso % (Auto) (0-2) % Lymph # (Auto) (1.2-4.9) X10*3/uL [place] # (Auto) (0.1-1.2) X10*3/uL Eos # (Auto) (0.0-0.4) X10*3/uL Baso # (Auto) (0.0-0.2) X10*3/uL Abs Immat Gran (auto) (0.00-0.03) X10*3/uL Absolute Neuts (auto) (2.0-8.3) x10*3/uL Absolute Nucleated RBC (0.0-0.012) X10*3/uL Nucleated RBC % (auto) (0.0-0.2) /100WBC Sodium (135-145) mmol/L Potassium (3.3-5.1) mmol/L Chloride (96-108) mmol/L Carbon Dioxide (22-29) mmol/L Anion Gap (12-20) BUN (9-16) mg/dL Creatinine (0.5-1.4) mg/dL Estim Creat Clear Calc Estimated GFR POC Glucose 195 H (60-115) mg/dL Random Glucose (60-115) mg/dL Lactic Acid (0.5-2.0) mmol/L Calcium (8.4-10.2) mg/dL Total Bilirubin (0.0-1.0) mg/dL AST (5-37) U/L ALT (0-40) U/L Alkaline Phosphatase (39-117) U/L Troponin I High Sens 19.5 17.7 (<3.5-35.0) ng/L Total Protein (6.5-8.0) g/dL Albumin (3.5-5.0) g/dL Urine Color Urine Appearance Urine pH (5.0-9.0) Ur Specific [place] (1.005-1.025) Urine Protein (Neg-Trace) mg/dL Urine Glucose (UA) (Negative) mg/dL Urine Ketones (Negative) mg/dL Urine Blood (Negative) Urine Nitrite (Negative) Ur Leukocyte Esterase (Negative) Urine RBC (0-2) /HPF Urine WBC (0-5) /HPF Ur Squamous Epith Cells (0-2) /HPF Urine Bacteria (None Seen) Hyaline Casts (0-2) /LPF COVID-19 (JOANN) (Negative) COVID-19 Clin Com 02/21/23 02/21/23 02/21/23 Range/Units 07:04 08:36 08:36 WBC 5.2 (4.8-10.8) X10*3/uL RBC 4.87 (4.60-5.80) X10*6/uL Hgb 15.4 (14.0-18.0) g/dl Hct 45.2 (42.0-52.0) % MCV 92.8 (80.0-98.0) fL MCH 31.6 (27.0-33.0) pg MCHC 34.1 (31.0-36.0) g/dl RDW 13.3 (11.0-16.0) % Plt Count 83 L (160-400) X10*3/uL MPV 10.7 (9.4-12.4) fL Immature Gran % (Auto) 0.2 (0.0-0.4) % Neut % (Auto) 74.9 H (45-73) % Lymph % (Auto) 11.6 L (20-40) % [place] % (Auto) 9.8 (2-11) % Eos % (Auto) 2.9 (0-4) % Baso % (Auto) 0.6 (0-2) % Lymph # (Auto) 0.6 L (1.2-4.9) X10*3/uL [place] # (Auto) 0.5 (0.1-1.2) X10*3/uL Eos # (Auto) 0.2 (0.0-0.4) X10*3/uL Baso # (Auto) 0.0 (0.0-0.2) X10*3/uL Abs Immat Gran (auto) 0.01 (0.00-0.03) X10*3/uL Absolute Neuts (auto) 3.9 (2.0-8.3) x10*3/uL Absolute Nucleated RBC 0.000 (0.0-0.012) X10*3/uL Nucleated RBC % (auto) 0.0 (0.0-0.2) /100WBC Sodium 137 (135-145) mmol/L Potassium 4.0 (3.3-5.1) mmol/L Chloride 102 (96-108) mmol/L Carbon Dioxide 28 (22-29) mmol/L Anion Gap 11 L (12-20) BUN 18 H (9-16) mg/dL Creatinine 1.16 (0.5-1.4) mg/dL Estim Creat Clear Calc 46.6 Estimated GFR 60 POC Glucose 148 H (60-115) mg/dL Random Glucose 158 H (60-115) mg/dL Lactic Acid (0.5-2.0) mmol/L Calcium 8.5 (8.4-10.2) mg/dL Total Bilirubin (0.0-1.0) mg/dL AST (5-37) U/L ALT (0-40) U/L Alkaline Phosphatase (39-117) U/L Troponin I High Sens (<3.5-35.0) ng/L Total Protein (6.5-8.0) g/dL Albumin (3.5-5.0) g/dL Urine Color Urine Appearance Urine pH (5.0-9.0) Ur Specific [place] (1.005-1.025) Urine Protein (Neg-Trace) mg/dL Urine Glucose (UA) (Negative) mg/dL Urine Ketones (Negative) mg/dL Urine Blood (Negative) Urine Nitrite (Negative) Ur Leukocyte Esterase (Negative) Urine RBC (0-2) /HPF Urine WBC (0-5) /HPF Ur Squamous Epith Cells (0-2) /HPF Urine Bacteria (None Seen) Hyaline Casts (0-2) /LPF COVID-19 (JOANN) (Negative) COVID-19 Clin Com 02/21/23 02/21/23 02/21/23 Range/Units 08:36 08:36 09:42 WBC (4.8-10.8) X10*3/uL RBC (4.60-5.80) X10*6/uL Hgb (14.0-18.0) g/dl Hct (42.0-52.0) % MCV (80.0-98.0) fL MCH (27.0-33.0) pg MCHC (31.0-36.0) g/dl RDW (11.0-16.0) % Plt Count (160-400) X10*3/uL MPV (9.4-12.4) fL Immature Gran % (Auto) (0.0-0.4) % Neut % (Auto) (45-73) % Lymph % (Auto) (20-40) % [place] % (Auto) (2-11) % Eos % (Auto) (0-4) % Baso % (Auto) (0-2) % Lymph # (Auto) (1.2-4.9) X10*3/uL [place] # (Auto) (0.1-1.2) X10*3/uL Eos # (Auto) (0.0-0.4) X10*3/uL Baso # (Auto) (0.0-0.2) X10*3/uL Abs Immat Gran (auto) (0.00-0.03) X10*3/uL Absolute Neuts (auto) (2.0-8.3) x10*3/uL Absolute Nucleated RBC (0.0-0.012) X10*3/uL Nucleated RBC % (auto) (0.0-0.2) /100WBC Sodium (135-145) mmol/L Potassium (3.3-5.1) mmol/L Chloride (96-108) mmol/L Carbon Dioxide (22-29) mmol/L Anion Gap (12-20) BUN (9-16) mg/dL Creatinine (0.5-1.4) mg/dL Estim Creat Clear Calc Estimated GFR POC Glucose (60-115) mg/dL Random Glucose (60-115) mg/dL Lactic Acid 1.6 (0.5-2.0) mmol/L Calcium (8.4-10.2) mg/dL Total Bilirubin (0.0-1.0) mg/dL AST (5-37) U/L ALT (0-40) U/L Alkaline Phosphatase (39-117) U/L Troponin I High Sens 18.4 (<3.5-35.0) ng/L Total Protein (6.5-8.0) g/dL Albumin (3.5-5.0) g/dL Urine Color Yellow Urine Appearance Clear Urine pH 7.0 (5.0-9.0) Ur Specific [place] 1.015 (1.005-1.025) Urine Protein Negative (Neg-Trace) mg/dL Urine Glucose (UA) Negative (Negative) mg/dL Urine Ketones Negative (Negative) mg/dL Urine Blood Trace H (Negative) Urine Nitrite Negative (Negative) Ur Leukocyte Esterase Negative (Negative) Urine RBC 3-5 H (0-2) /HPF Urine WBC 0-5 (0-5) /HPF Ur Squamous Epith Cells 0-2 (0-2) /HPF Urine Bacteria None Seen (None Seen) Hyaline Casts 3-5 (0-2) /LPF COVID-19 (JOANN) (Negative) COVID-19 Clin Com 02/21/23 02/21/23 02/21/23 Range/Units 13:10 18:39 21:40 WBC (4.8-10.8) X10*3/uL RBC (4.60-5.80) X10*6/uL Hgb (14.0-18.0) g/dl Hct (42.0-52.0) % MCV (80.0-98.0) fL MCH (27.0-33.0) pg MCHC (31.0-36.0) g/dl RDW (11.0-16.0) % Plt Count (160-400) X10*3/uL MPV (9.4-12.4) fL Immature Gran % (Auto) (0.0-0.4) % Neut % (Auto) (45-73) % Lymph % (Auto) (20-40) % [place] % (Auto) (2-11) % Eos % (Auto) (0-4) % Baso % (Auto) (0-2) % Lymph # (Auto) (1.2-4.9) X10*3/uL [place] # (Auto) (0.1-1.2) X10*3/uL Eos # (Auto) (0.0-0.4) X10*3/uL Baso # (Auto) (0.0-0.2) X10*3/uL Abs Immat Gran (auto) (0.00-0.03) X10*3/uL Absolute Neuts (auto) (2.0-8.3) x10*3/uL Absolute Nucleated RBC (0.0-0.012) X10*3/uL Nucleated RBC % (auto) (0.0-0.2) /100WBC Sodium (135-145) mmol/L Potassium (3.3-5.1) mmol/L Chloride (96-108) mmol/L Carbon Dioxide (22-29) mmol/L Anion Gap (12-20) BUN (9-16) mg/dL Creatinine (0.5-1.4) mg/dL Estim Creat Clear Calc Estimated GFR POC Glucose 148 H 164 H 163 H (60-115) mg/dL Random Glucose (60-115) mg/dL Lactic Acid (0.5-2.0) mmol/L Calcium (8.4-10.2) mg/dL Total Bilirubin (0.0-1.0) mg/dL AST (5-37) U/L ALT (0-40) U/L Alkaline Phosphatase (39-117) U/L Troponin I High Sens (<3.5-35.0) ng/L Total Protein (6.5-8.0) g/dL Albumin (3.5-5.0) g/dL Urine Color Urine Appearance Urine pH (5.0-9.0) Ur Specific [place] (1.005-1.025) Urine Protein (Neg-Trace) mg/dL Urine Glucose (UA) (Negative) mg/dL Urine Ketones (Negative) mg/dL Urine Blood (Negative) Urine Nitrite (Negative) Ur Leukocyte Esterase (Negative) Urine RBC (0-2) /HPF Urine WBC (0-5) /HPF Ur Squamous Epith Cells (0-2) /HPF Urine Bacteria (None Seen) Hyaline Casts (0-2) /LPF COVID-19 (JOANN) (Negative) COVID-19 Clin Com 02/22/23 02/22/23 Range/Units 09:12 13:51 WBC (4.8-10.8) X10*3/uL RBC (4.60-5.80) X10*6/uL Hgb (14.0-18.0) g/dl Hct (42.0-52.0) % MCV (80.0-98.0) fL MCH (27.0-33.0) pg MCHC (31.0-36.0) g/dl RDW (11.0-16.0) % Plt Count (160-400) X10*3/uL MPV (9.4-12.4) fL Immature Gran % (Auto) (0.0-0.4) % Neut % (Auto) (45-73) % Lymph % (Auto) (20-40) % [place] % (Auto) (2-11) % Eos % (Auto) (0-4) % Baso % (Auto) (0-2) % Lymph # (Auto) (1.2-4.9) X10*3/uL [place] # (Auto) (0.1-1.2) X10*3/uL Eos # (Auto) (0.0-0.4) X10*3/uL Baso # (Auto) (0.0-0.2) X10*3/uL Abs Immat Gran (auto) (0.00-0.03) X10*3/uL Absolute Neuts (auto) (2.0-8.3) x10*3/uL Absolute Nucleated RBC (0.0-0.012) X10*3/uL Nucleated RBC % (auto) (0.0-0.2) /100WBC Sodium (135-145) mmol/L Potassium (3.3-5.1) mmol/L Chloride (96-108) mmol/L Carbon Dioxide (22-29) mmol/L Anion Gap (12-20) BUN (9-16) mg/dL Creatinine (0.5-1.4) mg/dL Estim Creat Clear Calc Estimated GFR POC Glucose 136 H 113 (60-115) mg/dL Random Glucose (60-115) mg/dL Lactic Acid (0.5-2.0) mmol/L Calcium (8.4-10.2) mg/dL Total Bilirubin (0.0-1.0) mg/dL AST (5-37) U/L ALT (0-40) U/L Alkaline Phosphatase (39-117) U/L Troponin I High Sens (<3.5-35.0) ng/L Total Protein (6.5-8.0) g/dL Albumin (3.5-5.0) g/dL Urine Color Urine Appearance Urine pH (5.0-9.0) Ur Specific [place] (1.005-1.025) Urine Protein (Neg-Trace) mg/dL Urine Glucose (UA) (Negative) mg/dL Urine Ketones (Negative) mg/dL Urine Blood (Negative) Urine Nitrite (Negative) Ur Leukocyte Esterase (Negative) Urine RBC (0-2) /HPF Urine WBC (0-5) /HPF Ur Squamous Epith Cells (0-2) /HPF Urine Bacteria (None Seen) Hyaline Casts (0-2) /LPF COVID-19 (JOANN) (Negative) COVID-19 Clin Com <Cliff Nesbitt MD - Last Filed: 02/21/23 08:14> Lab Results 03/02/19/23 02/19/23 Range/Units 08:25 08:25 08:25 WBC 5.6 (4.8-10.8) X10*3/uL RBC 4.90 (4.60-5.80) X10*6/uL Hgb 15.7 (14.0-18.0) g/dl Hct 45.5 (42.0-52.0) % MCV 92.9 (80.0-98.0) fL MCH 32.0 (27.0-33.0) pg MCHC 34.5 (31.0-36.0) g/dl RDW 13.4 (11.0-16.0) % Plt Count 97 L (160-400) X10*3/uL MPV 11.1 (9.4-12.4) fL Immature Gran % (Auto) 0.2 (0.0-0.4) % Neut % (Auto) 67.7 (45-73) % Lymph % (Auto) 15.8 L (20-40) % [place] % (Auto) 10.6 (2-11) % Eos % (Auto) 4.8 H (0-4) % Baso % (Auto) 0.9 (0-2) % Lymph # (Auto) 0.9 L (1.2-4.9) X10*3/uL [place] # (Auto) 0.6 (0.1-1.2) X10*3/uL Eos # (Auto) 0.3 (0.0-0.4) X10*3/uL Baso # (Auto) 0.1 (0.0-0.2) X10*3/uL Abs Immat Gran (auto) 0.01 (0.00-0.03) X10*3/uL Absolute Neuts (auto) 3.8 (2.0-8.3) x10*3/uL Absolute Nucleated RBC 0.000 (0.0-0.012) X10*3/uL Nucleated RBC % (auto) 0.0 (0.0-0.2) /100WBC Sodium 140 (135-145) mmol/L Potassium 3.6 (3.3-5.1) mmol/L Chloride 101 (96-108) mmol/L Carbon Dioxide 30 H (22-29) mmol/L Anion Gap 13 (12-20) BUN 16 (9-16) mg/dL Creatinine 1.36 (0.5-1.4) mg/dL Estim Creat Clear Calc 39.7 Estimated GFR 50 POC Glucose (60-115) mg/dL Random Glucose 154 H (60-115) mg/dL Lactic Acid (0.5-2.0) mmol/L Calcium 8.5 D (8.4-10.2) mg/dL Total Bilirubin 1.8 H (0.0-1.0) mg/dL AST 37 (5-37) U/L ALT 32 (0-40) U/L Alkaline Phosphatase 89 (39-117) U/L Troponin I High Sens (<3.5-35.0) ng/L Total Protein 5.4 L (6.5-8.0) g/dL Albumin 3.7 (3.5-5.0) g/dL Urine Color Urine Appearance Urine pH (5.0-9.0) Ur Specific [place] (1.005-1.025) Urine Protein (Neg-Trace) mg/dL Urine Glucose (UA) (Negative) mg/dL Urine Ketones (Negative) mg/dL Urine Blood (Negative) Urine Nitrite (Negative) Ur Leukocyte Esterase (Negative) Urine RBC (0-2) /HPF Urine WBC (0-5) /HPF Ur Squamous Epith Cells (0-2) /HPF Urine Bacteria (None Seen) Hyaline Casts (0-2) /LPF COVID-19 (JOANN) Negative (Negative) COVID-19 Clin Com See Note 02/19/23 02/19/23 02/20/23 Range/Units 09:17 20:13 06:15 WBC (4.8-10.8) X10*3/uL RBC (4.60-5.80) X10*6/uL Hgb (14.0-18.0) g/dl Hct (42.0-52.0) % MCV (80.0-98.0) fL MCH (27.0-33.0) pg MCHC (31.0-36.0) g/dl RDW (11.0-16.0) % Plt Count (160-400) X10*3/uL MPV (9.4-12.4) fL Immature Gran % (Auto) (0.0-0.4) % Neut % (Auto) (45-73) % Lymph % (Auto) (20-40) % [place] % (Auto) (2-11) % Eos % (Auto) (0-4) % Baso % (Auto) (0-2) % Lymph # (Auto) (1.2-4.9) X10*3/uL [place] # (Auto) (0.1-1.2) X10*3/uL Eos # (Auto) (0.0-0.4) X10*3/uL Baso # (Auto) (0.0-0.2) X10*3/uL Abs Immat Gran (auto) (0.00-0.03) X10*3/uL Absolute Neuts (auto) (2.0-8.3) x10*3/uL Absolute Nucleated RBC (0.0-0.012) X10*3/uL Nucleated RBC % (auto) (0.0-0.2) /100WBC Sodium (135-145) mmol/L Potassium (3.3-5.1) mmol/L Chloride (96-108) mmol/L Carbon Dioxide (22-29) mmol/L Anion Gap (12-20) BUN (9-16) mg/dL Creatinine (0.5-1.4) mg/dL Estim Creat Clear Calc Estimated GFR POC Glucose 184 H 123 H (60-115) mg/dL Random Glucose (60-115) mg/dL Lactic Acid (0.5-2.0) mmol/L Calcium (8.4-10.2) mg/dL Total Bilirubin (0.0-1.0) mg/dL AST (5-37) U/L ALT (0-40) U/L Alkaline Phosphatase (39-117) U/L Troponin I High Sens (<3.5-35.0) ng/L Total Protein (6.5-8.0) g/dL Albumin (3.5-5.0) g/dL Urine Color Yellow Urine Appearance Clear Urine pH 7.0 (5.0-9.0) Ur Specific [place] 1.010 (1.005-1.025) Urine Protein Negative (Neg-Trace) mg/dL Urine Glucose (UA) Negative (Negative) mg/dL Urine Ketones Negative (Negative) mg/dL Urine Blood Negative (Negative) Urine Nitrite Negative (Negative) Ur Leukocyte Esterase Negative (Negative) Urine RBC (0-2) /HPF Urine WBC (0-5) /HPF Ur Squamous Epith Cells (0-2) /HPF Urine Bacteria (None Seen) Hyaline Casts (0-2) /LPF COVID-19 (JOANN) (Negative) COVID-19 Clin Com 02/20/23 02/20/23 02/20/23 Range/Units 12:51 17:58 20:49 WBC (4.8-10.8) X10*3/uL RBC (4.60-5.80) X10*6/uL Hgb (14.0-18.0) g/dl Hct (42.0-52.0) % MCV (80.0-98.0) fL MCH (27.0-33.0) pg MCHC (31.0-36.0) g/dl RDW (11.0-16.0) % Plt Count (160-400) X10*3/uL MPV (9.4-12.4) fL Immature Gran % (Auto) (0.0-0.4) % Neut % (Auto) (45-73) % Lymph % (Auto) (20-40) % [place] % (Auto) (2-11) % Eos % (Auto) (0-4) % Baso % (Auto) (0-2) % Lymph # (Auto) (1.2-4.9) X10*3/uL [place] # (Auto) (0.1-1.2) X10*3/uL Eos # (Auto) (0.0-0.4) X10*3/uL Baso # (Auto) (0.0-0.2) X10*3/uL Abs Immat Gran (auto) (0.00-0.03) X10*3/uL Absolute Neuts (auto) (2.0-8.3) x10*3/uL Absolute Nucleated RBC (0.0-0.012) X10*3/uL Nucleated RBC % (auto) (0.0-0.2) /100WBC Sodium (135-145) mmol/L Potassium (3.3-5.1) mmol/L Chloride (96-108) mmol/L Carbon Dioxide (22-29) mmol/L Anion Gap (12-20) BUN (9-16) mg/dL Creatinine (0.5-1.4) mg/dL Estim Creat Clear Calc Estimated GFR POC Glucose 150 H 159 H 143 H (60-115) mg/dL Random Glucose (60-115) mg/dL Lactic Acid (0.5-2.0) mmol/L Calcium (8.4-10.2) mg/dL Total Bilirubin (0.0-1.0) mg/dL AST (5-37) U/L ALT (0-40) U/L Alkaline Phosphatase (39-117) U/L Troponin I High Sens (<3.5-35.0) ng/L Total Protein (6.5-8.0) g/dL Albumin (3.5-5.0) g/dL Urine Color Urine Appearance Urine pH (5.0-9.0) Ur Specific [place] (1.005-1.025) Urine Protein (Neg-Trace) mg/dL Urine Glucose (UA) (Negative) mg/dL Urine Ketones (Negative) mg/dL Urine Blood (Negative) Urine Nitrite (Negative) Ur Leukocyte Esterase (Negative) Urine RBC (0-2) /HPF Urine WBC (0-5) /HPF Ur Squamous Epith Cells (0-2) /HPF Urine Bacteria (None Seen) Hyaline Casts (0-2) /LPF COVID-19 (JOANN) (Negative) COVID-19 Clin Com 02/21/23 02/21/23 02/21/23 Range/Units 02:42 03:24 06:29 WBC (4.8-10.8) X10*3/uL RBC (4.60-5.80) X10*6/uL Hgb (14.0-18.0) g/dl Hct (42.0-52.0) % MCV (80.0-98.0) fL MCH (27.0-33.0) pg MCHC (31.0-36.0) g/dl RDW (11.0-16.0) % Plt Count (160-400) X10*3/uL MPV (9.4-12.4) fL Immature Gran % (Auto) (0.0-0.4) % Neut % (Auto) (45-73) % Lymph % (Auto) (20-40) % [place] % (Auto) (2-11) % Eos % (Auto) (0-4) % Baso % (Auto) (0-2) % Lymph # (Auto) (1.2-4.9) X10*3/uL [place] # (Auto) (0.1-1.2) X10*3/uL Eos # (Auto) (0.0-0.4) X10*3/uL Baso # (Auto) (0.0-0.2) X10*3/uL Abs Immat Gran (auto) (0.00-0.03) X10*3/uL Absolute Neuts (auto) (2.0-8.3) x10*3/uL Absolute Nucleated RBC (0.0-0.012) X10*3/uL Nucleated RBC % (auto) (0.0-0.2) /100WBC Sodium (135-145) mmol/L Potassium (3.3-5.1) mmol/L Chloride (96-108) mmol/L Carbon Dioxide (22-29) mmol/L Anion Gap (12-20) BUN (9-16) mg/dL Creatinine (0.5-1.4) mg/dL Estim Creat Clear Calc Estimated GFR POC Glucose 195 H (60-115) mg/dL Random Glucose (60-115) mg/dL Lactic Acid (0.5-2.0) mmol/L Calcium (8.4-10.2) mg/dL Total Bilirubin (0.0-1.0) mg/dL AST (5-37) U/L ALT (0-40) U/L Alkaline Phosphatase (39-117) U/L Troponin I High Sens 19.5 17.7 (<3.5-35.0) ng/L Total Protein (6.5-8.0) g/dL Albumin (3.5-5.0) g/dL Urine Color Urine Appearance Urine pH (5.0-9.0) Ur Specific [place] (1.005-1.025) Urine Protein (Neg-Trace) mg/dL Urine Glucose (UA) (Negative) mg/dL Urine Ketones (Negative) mg/dL Urine Blood (Negative) Urine Nitrite (Negative) Ur Leukocyte Esterase (Negative) Urine RBC (0-2) /HPF Urine WBC (0-5) /HPF Ur Squamous Epith Cells (0-2) /HPF Urine Bacteria (None Seen) Hyaline Casts (0-2) /LPF COVID-19 (JOANN) (Negative) COVID-19 Clin Com 02/21/23 02/21/23 02/21/23 Range/Units 07:04 08:36 08:36 WBC 5.2 (4.8-10.8) X10*3/uL RBC 4.87 (4.60-5.80) X10*6/uL Hgb 15.4 (14.0-18.0) g/dl Hct 45.2 (42.0-52.0) % MCV 92.8 (80.0-98.0) fL MCH 31.6 (27.0-33.0) pg MCHC 34.1 (31.0-36.0) g/dl RDW 13.3 (11.0-16.0) % Plt Count 83 L (160-400) X10*3/uL MPV 10.7 (9.4-12.4) fL Immature Gran % (Auto) 0.2 (0.0-0.4) % Neut % (Auto) 74.9 H (45-73) % Lymph % (Auto) 11.6 L (20-40) % [place] % (Auto) 9.8 (2-11) % Eos % (Auto) 2.9 (0-4) % Baso % (Auto) 0.6 (0-2) % Lymph # (Auto) 0.6 L (1.2-4.9) X10*3/uL [place] # (Auto) 0.5 (0.1-1.2) X10*3/uL Eos # (Auto) 0.2 (0.0-0.4) X10*3/uL Baso # (Auto) 0.0 (0.0-0.2) X10*3/uL Abs Immat Gran (auto) 0.01 (0.00-0.03) X10*3/uL Absolute Neuts (auto) 3.9 (2.0-8.3) x10*3/uL Absolute Nucleated RBC 0.000 (0.0-0.012) X10*3/uL Nucleated RBC % (auto) 0.0 (0.0-0.2) /100WBC Sodium 137 (135-145) mmol/L Potassium 4.0 (3.3-5.1) mmol/L Chloride 102 (96-108) mmol/L Carbon Dioxide 28 (22-29) mmol/L Anion Gap 11 L (12-20) BUN 18 H (9-16) mg/dL Creatinine 1.16 (0.5-1.4) mg/dL Estim Creat Clear Calc 46.6 Estimated GFR 60 POC Glucose 148 H (60-115) mg/dL Random Glucose 158 H (60-115) mg/dL Lactic Acid (0.5-2.0) mmol/L Calcium 8.5 (8.4-10.2) mg/dL Total Bilirubin (0.0-1.0) mg/dL AST (5-37) U/L ALT (0-40) U/L Alkaline Phosphatase (39-117) U/L Troponin I High Sens (<3.5-35.0) ng/L Total Protein (6.5-8.0) g/dL Albumin (3.5-5.0) g/dL Urine Color Urine Appearance Urine pH (5.0-9.0) Ur Specific [place] (1.005-1.025) Urine Protein (Neg-Trace) mg/dL Urine Glucose (UA) (Negative) mg/dL Urine Ketones (Negative) mg/dL Urine Blood (Negative) Urine Nitrite (Negative) Ur Leukocyte Esterase (Negative) Urine RBC (0-2) /HPF Urine WBC (0-5) /HPF Ur Squamous Epith Cells (0-2) /HPF Urine Bacteria (None Seen) Hyaline Casts (0-2) /LPF COVID-19 (JOANN) (Negative) COVID-19 Clin Com 02/21/23 02/21/23 02/21/23 Range/Units 08:36 08:36 09:42 WBC (4.8-10.8) X10*3/uL RBC (4.60-5.80) X10*6/uL Hgb (14.0-18.0) g/dl Hct (42.0-52.0) % MCV (80.0-98.0) fL MCH (27.0-33.0) pg MCHC (31.0-36.0) g/dl RDW (11.0-16.0) % Plt Count (160-400) X10*3/uL MPV (9.4-12.4) fL Immature Gran % (Auto) (0.0-0.4) % Neut % (Auto) (45-73) % Lymph % (Auto) (20-40) % [place] % (Auto) (2-11) % Eos % (Auto) (0-4) % Baso % (Auto) (0-2) % Lymph # (Auto) (1.2-4.9) X10*3/uL [place] # (Auto) (0.1-1.2) X10*3/uL Eos # (Auto) (0.0-0.4) X10*3/uL Baso # (Auto) (0.0-0.2) X10*3/uL Abs Immat Gran (auto) (0.00-0.03) X10*3/uL Absolute Neuts (auto) (2.0-8.3) x10*3/uL Absolute Nucleated RBC (0.0-0.012) X10*3/uL Nucleated RBC % (auto) (0.0-0.2) /100WBC Sodium (135-145) mmol/L Potassium (3.3-5.1) mmol/L Chloride (96-108) mmol/L Carbon Dioxide (22-29) mmol/L Anion Gap (12-20) BUN (9-16) mg/dL Creatinine (0.5-1.4) mg/dL Estim Creat Clear Calc Estimated GFR POC Glucose (60-115) mg/dL Random Glucose (60-115) mg/dL Lactic Acid 1.6 (0.5-2.0) mmol/L Calcium (8.4-10.2) mg/dL Total Bilirubin (0.0-1.0) mg/dL AST (5-37) U/L ALT (0-40) U/L Alkaline Phosphatase (39-117) U/L Troponin I High Sens 18.4 (<3.5-35.0) ng/L Total Protein (6.5-8.0) g/dL Albumin (3.5-5.0) g/dL Urine Color Yellow Urine Appearance Clear Urine pH 7.0 (5.0-9.0) Ur Specific [place] 1.015 (1.005-1.025) Urine Protein Negative (Neg-Trace) mg/dL Urine Glucose (UA) Negative (Negative) mg/dL Urine Ketones Negative (Negative) mg/dL Urine Blood Trace H (Negative) Urine Nitrite Negative (Negative) Ur Leukocyte Esterase Negative (Negative) Urine RBC 3-5 H (0-2) /HPF Urine WBC 0-5 (0-5) /HPF Ur Squamous Epith Cells 0-2 (0-2) /HPF Urine Bacteria None Seen (None Seen) Hyaline Casts 3-5 (0-2) /LPF COVID-19 (JOANN) (Negative) COVID-19 Clin Com 02/21/23 02/21/23 02/21/23 Range/Units 13:10 18:39 21:40 WBC (4.8-10.8) X10*3/uL RBC (4.60-5.80) X10*6/uL Hgb (14.0-18.0) g/dl Hct (42.0-52.0) % MCV (80.0-98.0) fL MCH (27.0-33.0) pg MCHC (31.0-36.0) g/dl RDW (11.0-16.0) % Plt Count (160-400) X10*3/uL MPV (9.4-12.4) fL Immature Gran % (Auto) (0.0-0.4) % Neut % (Auto) (45-73) % Lymph % (Auto) (20-40) % [place] % (Auto) (2-11) % Eos % (Auto) (0-4) % Baso % (Auto) (0-2) % Lymph # (Auto) (1.2-4.9) X10*3/uL [place] # (Auto) (0.1-1.2) X10*3/uL Eos # (Auto) (0.0-0.4) X10*3/uL Baso # (Auto) (0.0-0.2) X10*3/uL Abs Immat Gran (auto) (0.00-0.03) X10*3/uL Absolute Neuts (auto) (2.0-8.3) x10*3/uL Absolute Nucleated RBC (0.0-0.012) X10*3/uL Nucleated RBC % (auto) (0.0-0.2) /100WBC Sodium (135-145) mmol/L Potassium (3.3-5.1) mmol/L Chloride (96-108) mmol/L Carbon Dioxide (22-29) mmol/L Anion Gap (12-20) BUN (9-16) mg/dL Creatinine (0.5-1.4) mg/dL Estim Creat Clear Calc Estimated GFR POC Glucose 148 H 164 H 163 H (60-115) mg/dL Random Glucose (60-115) mg/dL Lactic Acid (0.5-2.0) mmol/L Calcium (8.4-10.2) mg/dL Total Bilirubin (0.0-1.0) mg/dL AST (5-37) U/L ALT (0-40) U/L Alkaline Phosphatase (39-117) U/L Troponin I High Sens (<3.5-35.0) ng/L Total Protein (6.5-8.0) g/dL Albumin (3.5-5.0) g/dL Urine Color Urine Appearance Urine pH (5.0-9.0) Ur Specific [place] (1.005-1.025) Urine Protein (Neg-Trace) mg/dL Urine Glucose (UA) (Negative) mg/dL Urine Ketones (Negative) mg/dL Urine Blood (Negative) Urine Nitrite (Negative) Ur Leukocyte Esterase (Negative) Urine RBC (0-2) /HPF Urine WBC (0-5) /HPF Ur Squamous Epith Cells (0-2) /HPF Urine Bacteria (None Seen) Hyaline Casts (0-2) /LPF COVID-19 (JOANN) (Negative) COVID-19 Clin Com 02/22/23 02/22/23 Range/Units 09:12 13:51 WBC (4.8-10.8) X10*3/uL RBC (4.60-5.80) X10*6/uL Hgb (14.0-18.0) g/dl Hct (42.0-52.0) % MCV (80.0-98.0) fL MCH (27.0-33.0) pg MCHC (31.0-36.0) g/dl RDW (11.0-16.0) % Plt Count (160-400) X10*3/uL MPV (9.4-12.4) fL Immature Gran % (Auto) (0.0-0.4) % Neut % (Auto) (45-73) % Lymph % (Auto) (20-40) % [place] % (Auto) (2-11) % Eos % (Auto) (0-4) % Baso % (Auto) (0-2) % Lymph # (Auto) (1.2-4.9) X10*3/uL [place] # (Auto) (0.1-1.2) X10*3/uL Eos # (Auto) (0.0-0.4) X10*3/uL Baso # (Auto) (0.0-0.2) X10*3/uL Abs Immat Gran (auto) (0.00-0.03) X10*3/uL Absolute Neuts (auto) (2.0-8.3) x10*3/uL Absolute Nucleated RBC (0.0-0.012) X10*3/uL Nucleated RBC % (auto) (0.0-0.2) /100WBC Sodium (135-145) mmol/L Potassium (3.3-5.1) mmol/L Chloride (96-108) mmol/L Carbon Dioxide (22-29) mmol/L Anion Gap (12-20) BUN (9-16) mg/dL Creatinine (0.5-1.4) mg/dL Estim Creat Clear Calc Estimated GFR POC Glucose 136 H 113 (60-115) mg/dL Random Glucose (60-115) mg/dL Lactic Acid (0.5-2.0) mmol/L Calcium (8.4-10.2) mg/dL Total Bilirubin (0.0-1.0) mg/dL AST (5-37) U/L ALT (0-40) U/L Alkaline Phosphatase (39-117) U/L Troponin I High Sens (<3.5-35.0) ng/L Total Protein (6.5-8.0) g/dL Albumin (3.5-5.0) g/dL Urine Color Urine Appearance Urine pH (5.0-9.0) Ur Specific [place] (1.005-1.025) Urine Protein (Neg-Trace) mg/dL Urine Glucose (UA) (Negative) mg/dL Urine Ketones (Negative) mg/dL Urine Blood (Negative) Urine Nitrite (Negative) Ur Leukocyte Esterase (Negative) Urine RBC (0-2) /HPF Urine WBC (0-5) /HPF Ur Squamous Epith Cells (0-2) /HPF Urine Bacteria (None Seen) Hyaline Casts (0-2) /LPF COVID-19 (JOANN) (Negative) COVID-19 Clin Com <Alex Bear - Last Filed: 02/21/23 18:35> Lab Results 02/19/23 02/19/23 02/19/23 Range/Units 08:25 08:25 08:25 WBC 5.6 (4.8-10.8) X10*3/uL RBC 4.90 (4.60-5.80) X10*6/uL Hgb 15.7 (14.0-18.0) g/dl Hct 45.5 (42.0-52.0) % MCV 92.9 (80.0-98.0) fL MCH 32.0 (27.0-33.0) pg MCHC 34.5 (31.0-36.0) g/dl RDW 13.4 (11.0-16.0) % Plt Count 97 L (160-400) X10*3/uL MPV 11.1 (9.4-12.4) fL Immature Gran % (Auto) 0.2 (0.0-0.4) % Neut % (Auto) 67.7 (45-73) % Lymph % (Auto) 15.8 L (20-40) % [place] % (Auto) 10.6 (2-11) % Eos % (Auto) 4.8 H (0-4) % Baso % (Auto) 0.9 (0-2) % Lymph # (Auto) 0.9 L (1.2-4.9) X10*3/uL [place] # (Auto) 0.6 (0.1-1.2) X10*3/uL Eos # (Auto) 0.3 (0.0-0.4) X10*3/uL Baso # (Auto) 0.1 (0.0-0.2) X10*3/uL Abs Immat Gran (auto) 0.01 (0.00-0.03) X10*3/uL Absolute Neuts (auto) 3.8 (2.0-8.3) x10*3/uL Absolute Nucleated RBC 0.000 (0.0-0.012) X10*3/uL Nucleated RBC % (auto) 0.0 (0.0-0.2) /100WBC Sodium 140 (135-145) mmol/L Potassium 3.6 (3.3-5.1) mmol/L Chloride 101 (96-108) mmol/L Carbon Dioxide 30 H (22-29) mmol/L Anion Gap 13 (12-20) BUN 16 (9-16) mg/dL Creatinine 1.36 (0.5-1.4) mg/dL Estim Creat Clear Calc 39.7 Estimated GFR 50 POC Glucose (60-115) mg/dL Random Glucose 154 H (60-115) mg/dL Lactic Acid (0.5-2.0) mmol/L Calcium 8.5 D (8.4-10.2) mg/dL Total Bilirubin 1.8 H (0.0-1.0) mg/dL AST 37 (5-37) U/L ALT 32 (0-40) U/L Alkaline Phosphatase 89 (39-117) U/L Troponin I High Sens (<3.5-35.0) ng/L Total Protein 5.4 L (6.5-8.0) g/dL Albumin 3.7 (3.5-5.0) g/dL Urine Color Urine Appearance Urine pH (5.0-9.0) Ur Specific [place] (1.005-1.025) Urine Protein (Neg-Trace) mg/dL Urine Glucose (UA) (Negative) mg/dL Urine Ketones (Negative) mg/dL Urine Blood (Negative) Urine Nitrite (Negative) Ur Leukocyte Esterase (Negative) Urine RBC (0-2) /HPF Urine WBC (0-5) /HPF Ur Squamous Epith Cells (0-2) /HPF Urine Bacteria (None Seen) Hyaline Casts (0-2) /LPF COVID-19 (JOANN) Negative (Negative) COVID-19 Clin Com See Note 02/19/23 02/19/23 02/20/23 Range/Units 09:17 20:13 06:15 WBC (4.8-10.8) X10*3/uL RBC (4.60-5.80) X10*6/uL Hgb (14.0-18.0) g/dl Hct (42.0-52.0) % MCV (80.0-98.0) fL MCH (27.0-33.0) pg MCHC (31.0-36.0) g/dl RDW (11.0-16.0) % Plt Count (160-400) X10*3/uL MPV (9.4-12.4) fL Immature Gran % (Auto) (0.0-0.4) % Neut % (Auto) (45-73) % Lymph % (Auto) (20-40) % [place] % (Auto) (2-11) % Eos % (Auto) (0-4) % Baso % (Auto) (0-2) % Lymph # (Auto) (1.2-4.9) X10*3/uL [place] # (Auto) (0.1-1.2) X10*3/uL Eos # (Auto) (0.0-0.4) X10*3/uL Baso # (Auto) (0.0-0.2) X10*3/uL Abs Immat Gran (auto) (0.00-0.03) X10*3/uL Absolute Neuts (auto) (2.0-8.3) x10*3/uL Absolute Nucleated RBC (0.0-0.012) X10*3/uL Nucleated RBC % (auto) (0.0-0.2) /100WBC Sodium (135-145) mmol/L Potassium (3.3-5.1) mmol/L Chloride (96-108) mmol/L Carbon Dioxide (22-29) mmol/L Anion Gap (12-20) BUN (9-16) mg/dL Creatinine (0.5-1.4) mg/dL Estim Creat Clear Calc Estimated GFR POC Glucose 184 H 123 H (60-115) mg/dL Random Glucose (60-115) mg/dL Lactic Acid (0.5-2.0) mmol/L Calcium (8.4-10.2) mg/dL Total Bilirubin (0.0-1.0) mg/dL AST (5-37) U/L ALT (0-40) U/L Alkaline Phosphatase (39-117) U/L Troponin I High Sens (<3.5-35.0) ng/L Total Protein (6.5-8.0) g/dL Albumin (3.5-5.0) g/dL Urine Color Yellow Urine Appearance Clear Urine pH 7.0 (5.0-9.0) Ur Specific [place] 1.010 (1.005-1.025) Urine Protein Negative (Neg-Trace) mg/dL Urine Glucose (UA) Negative (Negative) mg/dL Urine Ketones Negative (Negative) mg/dL Urine Blood Negative (Negative) Urine Nitrite Negative (Negative) Ur Leukocyte Esterase Negative (Negative) Urine RBC (0-2) /HPF Urine WBC (0-5) /HPF Ur Squamous Epith Cells (0-2) /HPF Urine Bacteria (None Seen) Hyaline Casts (0-2) /LPF COVID-19 (JOANN) (Negative) COVID-19 Clin Com 02/20/23 02/20/23 02/20/23 Range/Units 12:51 17:58 20:49 WBC (4.8-10.8) X10*3/uL RBC (4.60-5.80) X10*6/uL Hgb (14.0-18.0) g/dl Hct (42.0-52.0) % MCV (80.0-98.0) fL MCH (27.0-33.0) pg MCHC (31.0-36.0) g/dl RDW (11.0-16.0) % Plt Count (160-400) X10*3/uL MPV (9.4-12.4) fL Immature Gran % (Auto) (0.0-0.4) % Neut % (Auto) (45-73) % Lymph % (Auto) (20-40) % [place] % (Auto) (2-11) % Eos % (Auto) (0-4) % Baso % (Auto) (0-2) % Lymph # (Auto) (1.2-4.9) X10*3/uL [place] # (Auto) (0.1-1.2) X10*3/uL Eos # (Auto) (0.0-0.4) X10*3/uL Baso # (Auto) (0.0-0.2) X10*3/uL Abs Immat Gran (auto) (0.00-0.03) X10*3/uL Absolute Neuts (auto) (2.0-8.3) x10*3/uL Absolute Nucleated RBC (0.0-0.012) X10*3/uL Nucleated RBC % (auto) (0.0-0.2) /100WBC Sodium (135-145) mmol/L Potassium (3.3-5.1) mmol/L Chloride (96-108) mmol/L Carbon Dioxide (22-29) mmol/L Anion Gap (12-20) BUN (9-16) mg/dL Creatinine (0.5-1.4) mg/dL Estim Creat Clear Calc Estimated GFR POC Glucose 150 H 159 H 143 H (60-115) mg/dL Random Glucose (60-115) mg/dL Lactic Acid (0.5-2.0) mmol/L Calcium (8.4-10.2) mg/dL Total Bilirubin (0.0-1.0) mg/dL AST (5-37) U/L ALT (0-40) U/L Alkaline Phosphatase (39-117) U/L Troponin I High Sens (<3.5-35.0) ng/L Total Protein (6.5-8.0) g/dL Albumin (3.5-5.0) g/dL Urine Color Urine Appearance Urine pH (5.0-9.0) Ur Specific [place] (1.005-1.025) Urine Protein (Neg-Trace) mg/dL Urine Glucose (UA) (Negative) mg/dL Urine Ketones (Negative) mg/dL Urine Blood (Negative) Urine Nitrite (Negative) Ur Leukocyte Esterase (Negative) Urine RBC (0-2) /HPF Urine WBC (0-5) /HPF Ur Squamous Epith Cells (0-2) /HPF Urine Bacteria (None Seen) Hyaline Casts (0-2) /LPF COVID-19 (JOANN) (Negative) COVID-19 Clin Com 02/21/23 02/21/23 02/21/23 Range/Units 02:42 03:24 06:29 WBC (4.8-10.8) X10*3/uL RBC (4.60-5.80) X10*6/uL Hgb (14.0-18.0) g/dl Hct (42.0-52.0) % MCV (80.0-98.0) fL MCH (27.0-33.0) pg MCHC (31.0-36.0) g/dl RDW (11.0-16.0) % Plt Count (160-400) X10*3/uL MPV (9.4-12.4) fL Immature Gran % (Auto) (0.0-0.4) % Neut % (Auto) (45-73) % Lymph % (Auto) (20-40) % [place] % (Auto) (2-11) % Eos % (Auto) (0-4) % Baso % (Auto) (0-2) % Lymph # (Auto) (1.2-4.9) X10*3/uL [place] # (Auto) (0.1-1.2) X10*3/uL Eos # (Auto) (0.0-0.4) X10*3/uL Baso # (Auto) (0.0-0.2) X10*3/uL Abs Immat Gran (auto) (0.00-0.03) X10*3/uL Absolute Neuts (auto) (2.0-8.3) x10*3/uL Absolute Nucleated RBC (0.0-0.012) X10*3/uL Nucleated RBC % (auto) (0.0-0.2) /100WBC Sodium (135-145) mmol/L Potassium (3.3-5.1) mmol/L Chloride (96-108) mmol/L Carbon Dioxide (22-29) mmol/L Anion Gap (12-20) BUN (9-16) mg/dL Creatinine (0.5-1.4) mg/dL Estim Creat Clear Calc Estimated GFR POC Glucose 195 H (60-115) mg/dL Random Glucose (60-115) mg/dL Lactic Acid (0.5-2.0) mmol/L Calcium (8.4-10.2) mg/dL Total Bilirubin (0.0-1.0) mg/dL AST (5-37) U/L ALT (0-40) U/L Alkaline Phosphatase (39-117) U/L Troponin I High Sens 19.5 17.7 (<3.5-35.0) ng/L Total Protein (6.5-8.0) g/dL Albumin (3.5-5.0) g/dL Urine Color Urine Appearance Urine pH (5.0-9.0) Ur Specific [place] (1.005-1.025) Urine Protein (Neg-Trace) mg/dL Urine Glucose (UA) (Negative) mg/dL Urine Ketones (Negative) mg/dL Urine Blood (Negative) Urine Nitrite (Negative) Ur Leukocyte Esterase (Negative) Urine RBC (0-2) /HPF Urine WBC (0-5) /HPF Ur Squamous Epith Cells (0-2) /HPF Urine Bacteria (None Seen) Hyaline Casts (0-2) /LPF COVID-19 (JOANN) (Negative) COVID-19 Clin Com 02/21/23 02/21/23 02/21/23 Range/Units 07:04 08:36 08:36 WBC 5.2 (4.8-10.8) X10*3/uL RBC 4.87 (4.60-5.80) X10*6/uL Hgb 15.4 (14.0-18.0) g/dl Hct 45.2 (42.0-52.0) % MCV 92.8 (80.0-98.0) fL MCH 31.6 (27.0-33.0) pg MCHC 34.1 (31.0-36.0) g/dl RDW 13.3 (11.0-16.0) % Plt Count 83 L (160-400) X10*3/uL MPV 10.7 (9.4-12.4) fL Immature Gran % (Auto) 0.2 (0.0-0.4) % Neut % (Auto) 74.9 H (45-73) % Lymph % (Auto) 11.6 L (20-40) % [place] % (Auto) 9.8 (2-11) % Eos % (Auto) 2.9 (0-4) % Baso % (Auto) 0.6 (0-2) % Lymph # (Auto) 0.6 L (1.2-4.9) X10*3/uL [place] # (Auto) 0.5 (0.1-1.2) X10*3/uL Eos # (Auto) 0.2 (0.0-0.4) X10*3/uL Baso # (Auto) 0.0 (0.0-0.2) X10*3/uL Abs Immat Gran (auto) 0.01 (0.00-0.03) X10*3/uL Absolute Neuts (auto) 3.9 (2.0-8.3) x10*3/uL Absolute Nucleated RBC 0.000 (0.0-0.012) X10*3/uL Nucleated RBC % (auto) 0.0 (0.0-0.2) /100WBC Sodium 137 (135-145) mmol/L Potassium 4.0 (3.3-5.1) mmol/L Chloride 102 (96-108) mmol/L Carbon Dioxide 28 (22-29) mmol/L Anion Gap 11 L (12-20) BUN 18 H (9-16) mg/dL Creatinine 1.16 (0.5-1.4) mg/dL Estim Creat Clear Calc 46.6 Estimated GFR 60 POC Glucose 148 H (60-115) mg/dL Random Glucose 158 H (60-115) mg/dL Lactic Acid (0.5-2.0) mmol/L Calcium 8.5 (8.4-10.2) mg/dL Total Bilirubin (0.0-1.0) mg/dL AST (5-37) U/L ALT (0-40) U/L Alkaline Phosphatase (39-117) U/L Troponin I High Sens (<3.5-35.0) ng/L Total Protein (6.5-8.0) g/dL Albumin (3.5-5.0) g/dL Urine Color Urine Appearance Urine pH (5.0-9.0) Ur Specific [place] (1.005-1.025) Urine Protein (Neg-Trace) mg/dL Urine Glucose (UA) (Negative) mg/dL Urine Ketones (Negative) mg/dL Urine Blood (Negative) Urine Nitrite (Negative) Ur Leukocyte Esterase (Negative) Urine RBC (0-2) /HPF Urine WBC (0-5) /HPF Ur Squamous Epith Cells (0-2) /HPF Urine Bacteria (None Seen) Hyaline Casts (0-2) /LPF COVID-19 (JOANN) (Negative) COVID-19 Clin Com 02/21/23 02/21/23 02/21/23 Range/Units 08:36 08:36 09:42 WBC (4.8-10.8) X10*3/uL RBC (4.60-5.80) X10*6/uL Hgb (14.0-18.0) g/dl Hct (42.0-52.0) % MCV (80.0-98.0) fL MCH (27.0-33.0) pg MCHC (31.0-36.0) g/dl RDW (11.0-16.0) % Plt Count (160-400) X10*3/uL MPV (9.4-12.4) fL Immature Gran % (Auto) (0.0-0.4) % Neut % (Auto) (45-73) % Lymph % (Auto) (20-40) % [place] % (Auto) (2-11) % Eos % (Auto) (0-4) % Baso % (Auto) (0-2) % Lymph # (Auto) (1.2-4.9) X10*3/uL [place] # (Auto) (0.1-1.2) X10*3/uL Eos # (Auto) (0.0-0.4) X10*3/uL Baso # (Auto) (0.0-0.2) X10*3/uL Abs Immat Gran (auto) (0.00-0.03) X10*3/uL Absolute Neuts (auto) (2.0-8.3) x10*3/uL Absolute Nucleated RBC (0.0-0.012) X10*3/uL Nucleated RBC % (auto) (0.0-0.2) /100WBC Sodium (135-145) mmol/L Potassium (3.3-5.1) mmol/L Chloride (96-108) mmol/L Carbon Dioxide (22-29) mmol/L Anion Gap (12-20) BUN (9-16) mg/dL Creatinine (0.5-1.4) mg/dL Estim Creat Clear Calc Estimated GFR POC Glucose (60-115) mg/dL Random Glucose (60-115) mg/dL Lactic Acid 1.6 (0.5-2.0) mmol/L Calcium (8.4-10.2) mg/dL Total Bilirubin (0.0-1.0) mg/dL AST (5-37) U/L ALT (0-40) U/L Alkaline Phosphatase (39-117) U/L Troponin I High Sens 18.4 (<3.5-35.0) ng/L Total Protein (6.5-8.0) g/dL Albumin (3.5-5.0) g/dL Urine Color Yellow Urine Appearance Clear Urine pH 7.0 (5.0-9.0) Ur Specific [place] 1.015 (1.005-1.025) Urine Protein Negative (Neg-Trace) mg/dL Urine Glucose (UA) Negative (Negative) mg/dL Urine Ketones Negative (Negative) mg/dL Urine Blood Trace H (Negative) Urine Nitrite Negative (Negative) Ur Leukocyte Esterase Negative (Negative) Urine RBC 3-5 H (0-2) /HPF Urine WBC 0-5 (0-5) /HPF Ur Squamous Epith Cells 0-2 (0-2) /HPF Urine Bacteria None Seen (None Seen) Hyaline Casts 3-5 (0-2) /LPF COVID-19 (JOANN) (Negative) COVID-19 Clin Com 02/21/23 02/21/23 02/21/23 Range/Units 13:10 18:39 21:40 WBC (4.8-10.8) X10*3/uL RBC (4.60-5.80) X10*6/uL Hgb (14.0-18.0) g/dl Hct (42.0-52.0) % MCV (80.0-98.0) fL MCH (27.0-33.0) pg MCHC (31.0-36.0) g/dl RDW (11.0-16.0) % Plt Count (160-400) X10*3/uL MPV (9.4-12.4) fL Immature Gran % (Auto) (0.0-0.4) % Neut % (Auto) (45-73) % Lymph % (Auto) (20-40) % [place] % (Auto) (2-11) % Eos % (Auto) (0-4) % Baso % (Auto) (0-2) % Lymph # (Auto) (1.2-4.9) X10*3/uL [place] # (Auto) (0.1-1.2) X10*3/uL Eos # (Auto) (0.0-0.4) X10*3/uL Baso # (Auto) (0.0-0.2) X10*3/uL Abs Immat Gran (auto) (0.00-0.03) X10*3/uL Absolute Neuts (auto) (2.0-8.3) x10*3/uL Absolute Nucleated RBC (0.0-0.012) X10*3/uL Nucleated RBC % (auto) (0.0-0.2) /100WBC Sodium (135-145) mmol/L Potassium (3.3-5.1) mmol/L Chloride (96-108) mmol/L Carbon Dioxide (22-29) mmol/L Anion Gap (12-20) BUN (9-16) mg/dL Creatinine (0.5-1.4) mg/dL Estim Creat Clear Calc Estimated GFR POC Glucose 148 H 164 H 163 H (60-115) mg/dL Random Glucose (60-115) mg/dL Lactic Acid (0.5-2.0) mmol/L Calcium (8.4-10.2) mg/dL Total Bilirubin (0.0-1.0) mg/dL AST (5-37) U/L ALT (0-40) U/L Alkaline Phosphatase (39-117) U/L Troponin I High Sens (<3.5-35.0) ng/L Total Protein (6.5-8.0) g/dL Albumin (3.5-5.0) g/dL Urine Color Urine Appearance Urine pH (5.0-9.0) Ur Specific [place] (1.005-1.025) Urine Protein (Neg-Trace) mg/dL Urine Glucose (UA) (Negative) mg/dL Urine Ketones (Negative) mg/dL Urine Blood (Negative) Urine Nitrite (Negative) Ur Leukocyte Esterase (Negative) Urine RBC (0-2) /HPF Urine WBC (0-5) /HPF Ur Squamous Epith Cells (0-2) /HPF Urine Bacteria (None Seen) Hyaline Casts (0-2) /LPF COVID-19 (JOANN) (Negative) COVID-19 Clin Com 02/22/23 02/22/23 Range/Units 09:12 13:51 WBC (4.8-10.8) X10*3/uL RBC (4.60-5.80) X10*6/uL Hgb (14.0-18.0) g/dl Hct (42.0-52.0) % MCV (80.0-98.0) fL MCH (27.0-33.0) pg MCHC (31.0-36.0) g/dl RDW (11.0-16.0) % Plt Count (160-400) X10*3/uL MPV (9.4-12.4) fL Immature Gran % (Auto) (0.0-0.4) % Neut % (Auto) (45-73) % Lymph % (Auto) (20-40) % [place] % (Auto) (2-11) % Eos % (Auto) (0-4) % Baso % (Auto) (0-2) % Lymph # (Auto) (1.2-4.9) X10*3/uL [place] # (Auto) (0.1-1.2) X10*3/uL Eos # (Auto) (0.0-0.4) X10*3/uL Baso # (Auto) (0.0-0.2) X10*3/uL Abs Immat Gran (auto) (0.00-0.03) X10*3/uL Absolute Neuts (auto) (2.0-8.3) x10*3/uL Absolute Nucleated RBC (0.0-0.012) X10*3/uL Nucleated RBC % (auto) (0.0-0.2) /100WBC Sodium (135-145) mmol/L Potassium (3.3-5.1) mmol/L Chloride (96-108) mmol/L Carbon Dioxide (22-29) mmol/L Anion Gap (12-20) BUN (9-16) mg/dL Creatinine (0.5-1.4) mg/dL Estim Creat Clear Calc Estimated GFR POC Glucose 136 H 113 (60-115) mg/dL Random Glucose (60-115) mg/dL Lactic Acid (0.5-2.0) mmol/L Calcium (8.4-10.2) mg/dL Total Bilirubin (0.0-1.0) mg/dL AST (5-37) U/L ALT (0-40) U/L Alkaline Phosphatase (39-117) U/L Troponin I High Sens (<3.5-35.0) ng/L Total Protein (6.5-8.0) g/dL Albumin (3.5-5.0) g/dL Urine Color Urine Appearance Urine pH (5.0-9.0) Ur Specific [place] (1.005-1.025) Urine Protein (Neg-Trace) mg/dL Urine Glucose (UA) (Negative) mg/dL Urine Ketones (Negative) mg/dL Urine Blood (Negative) Urine Nitrite (Negative) Ur Leukocyte Esterase (Negative) Urine RBC (0-2) /HPF Urine WBC (0-5) /HPF Ur Squamous Epith Cells (0-2) /HPF Urine Bacteria (None Seen) Hyaline Casts (0-2) /LPF COVID-19 (JOANN) (Negative) COVID-19 Clin Com <ALEKSANDR Real - Last Filed: 02/22/23 17:47> Independent Interpretation I performed an independent interpretation of an: EKG and CT Scan <Reina Wells NP - Last Filed: 02/19/23 18:16> Interpretation: And pending reviewed the EKG and agree with the report sinus rhythm with first-degree AV block with occasional PVCs, normal QRS, normal QT And family reviewed the CT scan and agree with radiologist's report <Reina Wells NP - Last Filed: 02/19/23 18:16> Radiology Impression Discussion of test interpretation with radiology: I have reviewed the radiologist's reading. <Reina Wells NP - Last Filed: 02/19/23 18:16> Radiologist Impression: FINDINGS: The patient is status post right knee arthroplasty showing good anatomic alignment and no evidence for hardware malfunction. Nonacute deformity in the distal right femur. Possible small suprapatellar joint effusion. Mild prepatellar soft tissue swelling.? XR/XR knee RT 4V IMPRESSION: ? 1. No acute fracture. No hardware abnormality. 2. Mild soft tissue swelling and possible small suprapatellar joint effusion. Correlate with physical exam. ? <Reina Wells NP - Last Filed: 02/19/23 18:16> Discharge Plan Discharge Clinical Impression: Major neurocognitive disorder due to vascular disease, without behavioral disturbance, severe <Reina Wells NP - Last Filed: 02/19/23 18:16> Patient Disposition: Still a Patient <Reina Wells NP - Last Filed: 02/19/23 18:16> Prescriptions: No Action bupropion HCl 150 mg tablet sustained-release 12 hr 150 mg PO DAILY atorvastatin 80 mg tablet 80 mg PO BEDTIME chlorthalidone 25 mg tablet 12.5 mg PO DAILY terazosin 2 mg capsule 2 mg PO BEDTIME metoprolol tartrate 50 mg tablet 50 mg PO BID omeprazole 20 mg capsule,delayed release(DR/EC) 20 mg PO DAILY@0630 lisinopril 40 mg tablet 40 mg PO DAILY insulin aspart U-100 [Novolog FlexPen U-100 Insulin] 100 unit/mL (3 mL) insulin pen 6 - 10 unit subcut TID Levemir FlexTouch U-100 Insuln 100 unit/mL (3 mL) insulin pen 10 unit subcut BEDTIME <Reina Wells NP - Last Filed: 02/19/23 18:16>
[2023-02-19 08:04] VITALS: BP 129/62; PULSE 78; RESP 18; TEMP 36.7; O2SAT 97; BMI 29.9
[2023-02-19 08:31] LABS: MANUAL DIFF FLAG NO
[2023-02-19 08:45] LABS: Basophils Absolute Auto 0.1 X10*3/uL (0.0-0.2); Basophils Percent Auto 0.9 % (0-2); Eosinophils Absolute Auto 0.3 X10*3/uL (0.0-0.4); Eosinophils Percent Auto 4.8 % (0-4); Hematocrit 45.5 % (42.0-52.0); Hemoglobin 15.7 g/dl (14.0-18.0); Imm Gran Abs Auto 0.01 X10*3/uL (0.00-0.03); Imm Gran Pct Auto 0.2 % (0.0-0.4); Lymphocytes Absolute Auto 0.9 X10*3/uL (1.2-4.9); Lymphocytes Percent Auto 15.8 % (20-40); Mean Corpuscular HGB Conc 34.5 g/dl (31.0-36.0); Mean Corpuscular Volume 92.9 fL (80.0-98.0); Mean Platelet Volume 11.1 fL (9.4-12.4); Monocytes Absolute Auto 0.6 X10*3/uL (0.1-1.2); Monocytes Percent Auto 10.6 % (2-11); Neutrophils Absolute Auto 3.8 x10*3/uL (2.0-8.3); Neutrophils Percent Auto 67.7 % (45-73); Red Cell Distribution Width 13.4 % (11.0-16.0); White Blood Count 5.6 X10*3/uL (4.8-10.8)
[2023-02-19 08:46] LABS: Platelet Count 97 X10*3/uL (160-400)
[2023-02-19 09:16] LABS: COVID-19 Test Negative (Negative); IDNOW Serial# BCCEAD1C
[2023-02-19 09:24] LABS: Appearance Urine Clear; Color Urine Yellow; Glucose Urine UA Negative (Negative); Leukocyte Esterase Urine Negative (Negative); Nitrite Urine Negative (Negative); Urine Blood Negative (Negative); Urine Ketones Negative (Negative); Urine Protein Negative (Neg-Trace)
[2023-02-19 09:37] LABS: Alanine Aminotransferase 32 U/L (0-40); Albumin Level 3.7 g/dL (3.5-5.0); Alkaline Phosphatase 89 U/L (39-117); Anion Gap 13 (12-20); Aspartate Amino Transferase 37 U/L (5-37); Bilirubin Total 1.8 mg/dL (0.0-1.0); Blood Urea Nitrogen 16 mg/dL (9-16); Calcium 8.5 mg/dL (8.4-10.2); Carbon Dioxide 30 mmol/L (22-29); Chloride 101 mmol/L (96-108); Creatinine Clr Calc Pharmacy 39.7; Estimated Glomerular Filt Rate 50; Glucose Random 154 mg/dL (60-115); Potassium 3.6 mmol/L (3.3-5.1); Sodium 140 mmol/L (135-145); Total Protein 5.4 g/dL (6.5-8.0)
--- NOTE | 2023-02-19 11:47 | PC.NURSE ---
awaiting care team
[2023-02-19 11:57] VITALS: BP 159/75; PULSE 63; RESP 18; O2SAT 96
--- NOTE | 2023-02-19 13:16 | PC.NURSE ---
plan for psych eval and then transition to case management placement.
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
--- NOTE | 2023-02-19 14:42 | PHA.MEDREC ---
Pharmacy Consult ? Medication Reconciliation Pharmacy has completed the medication reconciliation. Pt's at bedside with current list, states he has had no medication today and only had his insulin yesterday.
--- NOTE | 2023-02-19 15:34 | PC.NURSE ---
awaiting psych consult
--- NOTE | 2023-02-19 16:48 | PM.PSYCN ---
History of Present Illness Date of Service: 02/19/2023 Chief Complaint: section 12 Reason for Consult: combative behaviors, delusions in setting of dementia Requesting physician: Reina Wells Discussed with referring provider: Yes Sources of Information: patient interviewed, chart reviewed and crisis/core team assessment reviewed Additional Sources of Information: Maribel HPI Narrative: Mr. Ko is a 82 year-old male with hx of dementia (unclear type of dementia) who was brought via EMS to [facility] ED due to pt presenting as increasingly more combative, having delusions of bringing men at night to her room. Pt has been found wondering and has been reported missing person twice this month. Pt seen in ED. Pt reports he does not want to speak ill of his but he reports seeing and hearing men coming to her room at night. Pt reports one of these men is his neighbor. Pt reports he has not been aggressive towards his but feeling very frustrated about this situation. He denies SI/HI. He reports he has had memory changes but states this is normal at my age. 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 Pt is oriented to place, not situation, not year (states 2021), date is off by 3 days. He is oriented to month- after some thinking he states January. Per , pt has been increasingly more agitated when he tries to leave the house and tries to redirect him. He has pushed her. He has been found wondering. also reports that delusions of men coming to the home are getting worse and she fears that he may hurt her as he becomes very agitated when he thinks he has seen or heard someone in her room. reports he comes in middle of the night with flashlight on her face to inquire about men that he thinks is hiding somewhere in his room. Pt reports having hunting riffles, however, reports these have been removed by police a while ago. reports he was started on wellbutrin but it appear to agitate him more. is HCP. also has copy of power of divorce attorney. Past Psychiatric History: None Medical Evaluation Reviewed: Yes Diagnostics Vital Signs (24Hr): Vital Signs - 24 hr 02/19/23 07:55 02/19/23 08:04 02/19/23 11:57 Temperature 97.8 F 98.1 F Pulse Rate 77 78 63 Respiratory Rate 18 18 18 Blood Pressure 129/62 129/62 159/75 H Pulse Oximetry 96 97 96 Oxygen Delivery Method Room Air Room Air Room Air BMI result Body Mass Index 29.9 Labs 02/19/23 08:25 02/19/23 08:25 Labs: Laboratory Results - last 48 hr 02/19/23 02/19/23 02/19/23 08:25 08:25 08:25 WBC 5.6 RBC 4.90 Hgb 15.7 Hct 45.5 MCV 92.9 MCH 32.0 MCHC 34.5 RDW 13.4 Plt Count 97 L MPV 11.1 Immature Gran % (Auto) 0.2 Neut % (Auto) 67.7 Lymph % (Auto) 15.8 L Knox % (Auto) 10.6 Eos % (Auto) 4.8 H Baso % (Auto) 0.9 Lymph # (Auto) 0.9 L Knox # (Auto) 0.6 Eos # (Auto) 0.3 Baso # (Auto) 0.1 Abs Immat Gran (auto) 0.01 Absolute Neuts (auto) 3.8 Absolute Nucleated RBC 0.000 Nucleated RBC % (auto) 0.0 Sodium 140 Potassium 3.6 Chloride 101 Carbon Dioxide 30 H Anion Gap 13 BUN 16 Creatinine 1.36 Estim Creat Clear Calc 39.7 Estimated GFR 50 Random Glucose 154 H Calcium 8.5 D Total Bilirubin 1.8 H AST 37 ALT 32 Alkaline Phosphatase 89 Total Protein 5.4 L Albumin 3.7 Urine Color Urine Appearance Urine pH Ur Specific [place] Urine Protein Urine Glucose (UA) Urine Ketones Urine Blood Urine Nitrite Ur Leukocyte Esterase COVID-19 (JOANN) Negative COVID-19 Clin Com See Note 02/19/23 09:17 WBC RBC Hgb Hct MCV MCH MCHC RDW Plt Count MPV Immature Gran % (Auto) Neut % (Auto) Lymph % (Auto) Knox % (Auto) Eos % (Auto) Baso % (Auto) Lymph # (Auto) Knox # (Auto) Eos # (Auto) Baso # (Auto) Abs Immat Gran (auto) Absolute Neuts (auto) Absolute Nucleated RBC Nucleated RBC % (auto) Sodium Potassium Chloride Carbon Dioxide Anion Gap BUN Creatinine Estim Creat Clear Calc Estimated GFR Random Glucose Calcium Total Bilirubin AST ALT Alkaline Phosphatase Total Protein Albumin Urine Color Yellow Urine Appearance Clear Urine pH 7.0 Ur Specific [place] 1.010 Urine Protein Negative Urine Glucose (UA) Negative Urine Ketones Negative Urine Blood Negative Urine Nitrite Negative Ur Leukocyte Esterase Negative COVID-19 (JOANN) COVID-19 Clin Com Mental Status Exam Mental Status Exam Narrative: Appearance: wearing hospital gown, fair hygiene, in NAD Behavior: cooperative Psychomotor: no agitation or retardation noted Speech: clear, normal rate/rhythm/volume, spontaneous TP: mostly linear TC: delusions of bring men at night Mood: okay Affect: congruent, some frustration related to situation with SI: denies HI: denies VH/AH: none Delusions: of bring men to her room at night, believes she is having sex with them. Insight/judgment: impaired x 2. Memory/cog: alert, oriented to place, not situation, not year. He knows the month but not the date. Pending MOCA. Medications Medications Current Medications Pharmacy Consult (Consult Rx Perform Med Rec) 1 each MISCELLANE ONCE PRN PRN Reason: Consult order Allergies Allergies Allergy/AdvReac Type Severity Reaction Status Date / Time No Known Allergies Allergy Verified 02/16/22 17:31 Assessment & Plan Assessment & Plan (1) Major neurocognitive disorder due to vascular disease, without behavioral disturbance, severe: Status: Acute Code(s): F01.C0 - Vascular dementia, severe, without behavioral disturbance, psychotic disturbance, mood disturbance, and anxiety Plan Mr. Ko is a 82 year-old male with hx of dementia (seems like it may be combination of vascular given that language is fairly intact as well orientation- MOCA may help identify pattern of cognitive impairment) who was brought via EMS to [facility] s pt presenting increasingly more combative and agitated due to delusions of bringing men to their house. Pt has been also wondering, attempting to drive when he is not safe to do so and difficult to redirect. , Maribel is HCP. PLAN 1. Pt does NOT have capacity to make medical decisions in that he is unable to show understanding and appreciation of medical conditions, treatment options due to significant cognitive impairments. HCP should be invoke by MD. 2. has expressed difficulty caring for him, looking for buttermaker continuous churn placement. 3. Pt had been on wellbutrin but per seems like it agitated him more at some point. This teletypewriter installer discussed with starting antipsychotic for delusions. ECG shows Sinus rhythm with sinus arrhythmia with 1st degree A-V block with occasional Premature ventricular complexes. Qtc 475 ms. Could start low dose olanzapine, monitor ECG, maintain K>4, Mg>2, Qtc<500ms. Monitor ortho HOTN. Will d/c wellbutrin - as it may increase agitation, delusions. 4. Case management to continue working on placement. Total time managing care of this patient today ____ minutes.
[2023-02-19 20:16] LABS: Glucose, Whole Blood 184 mg/dL (60-115)
[2023-02-19 20:26] VITALS: BP 118/82; PULSE 74; RESP 20; TEMP 36.6; O2SAT 97
[2023-02-19] MEDS: Doxazosin Mesylate 2 MG TABLET PO (20:27)
[2023-02-19] MEDS: Atorvastatin Calcium 80 MG TABLET PO (20:27)
[2023-02-19] MEDS: OLANZapine 2.5 MG TABLET PO (20:27)
[2023-02-19] MEDS: Metoprolol Tartrate 50 MG TABLET PO (20:27)
[2023-02-19] MEDS: Insulin Lispro 100 UNIT/ML 3 ML VIAL SUBCUT (20:28)
[2023-02-19] MEDS: Insulin Glargine,Hum.rec.anlog 100 UNIT/ML 10 ML VIAL 7 UNIT SUBCUT (20:28)
--- NOTE | 2023-02-19 22:20 | MHC.CM.ED ---
CM met with patient. Alert, friendly and cooperative. Pt tells me he lives with his , she tries to control him. Tells CM his is having men in her room, that he has seen them and that he has not confronted them. Tells me he drives, volunteers at [employer] and visits with friends at corner store. Tells me he has guns and ammunition in his home, as well as fishing equipment. He tells me his guns are locked in a safe. Per Psych Eval: Pt is having delusions about his having nightly sex with strangers and his guns have been removed from the home.Psych Tells CM that his license has been revoked and that the patient has been wandering. CM spoke with /HCP Adriana, who tells CM that patient is delusional, imagining that she has men in her room every night and is having sex with them. Adriana laughingly tells CM that she is 81 years old and that is not happening. States thinks she is trying to control him and that he does not listen to her. Adriana tells me that her is no longer helping set up coffee at the [employer], that he has been released of his duties as of last week. The [employer] gave him a card and thanked him for all he has done. Adriana tells CM that he really cannot do things, but refused to let her help him. He has been wandering and driving when he is not supposed to. Adriana took his car keys away from him today. Adriana is very fearful for him to come home. States she can no longer care for him. Adriana tells CM that his guns have been removed from the home. Adriana is aware that Psych is recommending medication changes and does not feel patient has the capacity to make medical decisions and is requesting provider invoke the HCP. Adriana will bring in HCP and POA tomorrow. Adriana is requesting LTC placement and thought that his medicare would pay for it, with his social security check. CM explained that payment for LTC is either private pay, [facility] insurance or [facility]. Explained that medicare does not cover LTC. Adriana is very upset. States cannot pay. CM discussed referral to Financial Services for assistance with MH application and suggested one of her children help her. Pt will call her daughter. Given contact telephone number for financial services. Referral made to financial Assistance.. Explained that this process can takes weeks to months. PT will evaluate patient for need for STR, however patient ambulates at home and does wander, so CM is unsure if PT will recommend STR. Pt will need LTC, a locked unit, and . Adriana is very upset, as she feels if he comes home, he will leave house and will try to drive. States she doesn't feel that she can safely care for him. Pt lives with . Has 4 children, eldest last month. Uses no DME/services. HCP/POA at home. , Adriana ([phone]) is his HCP. HCP not yet invoked. PT pending. Psych to complete MOCA tomorrow. No referrals placed for STR/LTC at this time. CM will follow for discharge planning.
--- NOTE | 2023-02-20 00:10 | MHC.EDTECH ---
pt up to bathroom , pt now resting queitly.
[2023-02-20] MEDS: Omeprazole 20 MG CAPSULE.DR PO (06:16)
[2023-02-20 06:23] LABS: Glucose, Whole Blood 123 mg/dL (60-115)
[2023-02-20 06:24] VITALS: BP 122/55; PULSE 56; RESP 16; TEMP 36.8; O2SAT 95
--- NOTE | 2023-02-20 06:44 | PC.NURSE ---
breakfast tray provided
[2023-02-20] MEDS: Metoprolol Tartrate 50 MG TABLET PO ×2 (08:24→21:03)
[2023-02-20] MEDS: lisinopriL 40 MG TABLET PO (08:24)
[2023-02-20] MEDS: hydroCHLOROthiazide 12.5 MG TABLET PO (09:56)
[2023-02-20] MEDS: OLANZapine 2.5 MG TABLET PO ×2 (09:56→21:03)
--- NOTE | 2023-02-20 12:52 | MHC.EDTECH ---
POC 150 RN Carol arias
[2023-02-20 12:55] LABS: Glucose, Whole Blood 150 mg/dL (60-115)
[2023-02-20 16:27] VITALS: BP 116/69; PULSE 62; RESP 16; TEMP 36.7; O2SAT 96
--- NOTE | 2023-02-20 17:59 | MHC.EDTECH ---
POC 159 RN Mackenzie arias
[2023-02-20 18:01] LABS: Glucose, Whole Blood 159 mg/dL (60-115)
[2023-02-20] MEDS: Insulin Lispro 100 UNIT/ML 3 ML VIAL SUBCUT (18:07)
[2023-02-20 20:51] VITALS: BP 137/68; PULSE 66; RESP 16; TEMP 36.7; O2SAT 96
[2023-02-20 20:52] LABS: Glucose, Whole Blood 143 mg/dL (60-115)
[2023-02-20] MEDS: Atorvastatin Calcium 80 MG TABLET PO (21:03)
[2023-02-20] MEDS: Insulin Glargine,Hum.rec.anlog 100 UNIT/ML 10 ML VIAL 7 UNIT SUBCUT (21:04)
[2023-02-20] MEDS: Doxazosin Mesylate 2 MG TABLET PO (21:04)
[2023-02-21] VITALS (9 sets, daily range): BP systolic 72–158; BP diastolic 34–66; PULSE 51–65; RESP 12–18; TEMP 36.8; O2SAT 95–100
--- NOTE | 2023-02-21 01:13 | PC.NURSE ---
Addendum entered by Lovely Trevino RN 02/21/23 03:29: 0230: Pt was calm, steady on his feet and standing at the nurses station talking to staff when his eyes rolled back and he fell backwards. Pt hit his head, AUTO CLUTCH SPECIALIST was called. Pt assisted to bed. Charge ED/MD and line department supervisor at bedside. Pt alert and able to talk but confused. Pt transferred to main ED for stat head CT. Addendum entered by Lovely Trevino RN 02/21/23 02:05: Security, ED metal numerical control programmer, and line department supervisor at bedside. Situation was eventually de-escalated and Pt agreed to stay for the night. ordered 2mg ativan rosemary. Med given. Original Note: Pt &OX 1, stating he needs to go out to his car drive home. Pt pacing back and forth, he is steady on his feet, VSS. This RN redirected pt and reassured him that he is safe at the hospital. Pt continues to pace and getting dressed and insists on leaving. Assistant Professor Of Music and MD notified and charge ED notified.
[2023-02-21] MEDS: LORazepam 1 MG TABLET 2 MG PO (01:57)
[2023-02-21 02:46] LABS: Glucose, Whole Blood 195 mg/dL (60-115)
--- NOTE | 2023-02-21 02:52 | ECG_ITS ---
Test Reason : syncope Blood Pressure : / mmHG Vent. Rate : 058 BPM Atrial Rate : 058 BPM P-R Int : 262 ms QRS Dur : 108 ms QT Int : 394 ms P-R-T Axes : 056 052 040 degrees QTc Int : 386 ms Sinus bradycardia with 1st degree A-V block with Premature supraventricular complexes Inferior infarct (cited on or before 19-FEB-2023) Abnormal ECG When compared with ECG of 19-FEB-2023 12:48, Premature ventricular complexes are no longer Present Premature supraventricular complexes are now Present Nonspecific T wave abnormality now evident in Inferior leads QT has shortened Referred By: Faustino Hernandez Electronically Signed By:
[2023-02-21 03:51] LABS: Troponin-I High Sensitivity 19.5 ng/L (<3.5-35.0)
--- NOTE | 2023-02-21 05:19 | PC.NURSE ---
late entry- this rn acquired pt from ed overflow at approx. 0300 where pt sustained a fall with head strike. pt brought to main ed. ct obtained this rn and internist medical doctor md and licensed practical vocational nurse available in room during scan. pt brought to ed 4 2nd iv placed. pt placed on heeler. blood work obtained. ekg obtained. bed alarm activated. pt confused and continues to pull at monitors and iv's dr thomas aware
--- NOTE | 2023-02-21 06:16 | PC.NURSE ---
pt sleeping at this time. chest rise and fall noted. vss dr thomas aware of vss and pt sleeping
--- NOTE | 2023-02-21 06:31 | PC.NURSE ---
this rn obtained blood work and sent down to lab. pt repositioned on back.
[2023-02-21 06:53] LABS: Troponin-I High Sensitivity 17.7 ng/L (<3.5-35.0)
[2023-02-21 07:10] LABS: Glucose, Whole Blood 148 mg/dL (60-115)
--- NOTE | 2023-02-21 08:15 | PC.NURSE ---
pt resting in the stretcher, skin appropriate for ethnicity, respirations even and unlabored, ls clear, pt's will open his eyes to voice command, pulling at medical equipment and grabbing things in the air, went asked questions pt will attempt to answer but speech is unclear/garbled. pt becoming hypotensive in the low 80's, sinus timothy on the monitor. md aware of this new findings
[2023-02-21] MEDS: 0.9 % Sodium Chloride 1,000 ML 999 ML IV (08:29)
[2023-02-21 08:42] LABS: MANUAL DIFF FLAG NO
[2023-02-21 08:47] LABS: Basophils Percent Auto 0.6 % (0-2); Eosinophils Absolute Auto 0.2 X10*3/uL (0.0-0.4); Eosinophils Percent Auto 2.9 % (0-4); Hematocrit 45.2 % (42.0-52.0); Hemoglobin 15.4 g/dl (14.0-18.0); Imm Gran Abs Auto 0.01 X10*3/uL (0.00-0.03); Imm Gran Pct Auto 0.2 % (0.0-0.4); Lymphocytes Absolute Auto 0.6 X10*3/uL (1.2-4.9); Lymphocytes Percent Auto 11.6 % (20-40); Mean Corpuscular HGB Conc 34.1 g/dl (31.0-36.0); Mean Corpuscular Hemoglobin 31.6 pg (27.0-33.0); Mean Corpuscular Volume 92.8 fL (80.0-98.0); Mean Platelet Volume 10.7 fL (9.4-12.4); Monocytes Absolute Auto 0.5 X10*3/uL (0.1-1.2); Monocytes Percent Auto 9.8 % (2-11); Neutrophils Absolute Auto 3.9 x10*3/uL (2.0-8.3); Neutrophils Percent Auto 74.9 % (45-73); Red Blood Count 4.87 X10*6/uL (4.60-5.80); Red Cell Distribution Width 13.3 % (11.0-16.0); White Blood Count 5.2 X10*3/uL (4.8-10.8)
[2023-02-21 08:48] LABS: Platelet Count 83 X10*3/uL (160-400)
[2023-02-21 08:59] LABS: Lactic Acid 1.6 mmol/L (0.5-2.0)
[2023-02-21 09:02] LABS: Anion Gap 11 (12-20); Blood Urea Nitrogen 18 mg/dL (9-16); Calcium 8.5 mg/dL (8.4-10.2); Carbon Dioxide 28 mmol/L (22-29); Chloride 102 mmol/L (96-108); Creatinine Clr Calc Pharmacy 46.6; Estimated Glomerular Filt Rate 60; Glucose Random 158 mg/dL (60-115); Sodium 137 mmol/L (135-145)
[2023-02-21 09:10] LABS: Troponin-I High Sensitivity 18.4 ng/L (<3.5-35.0)
--- NOTE | 2023-02-21 09:43 | PC.NURSE ---
pt is currently more awake, speech is clear and pt following simple commands, denies pain, pt straight cath to obtain urine sample
[2023-02-21 09:48] LABS: Appearance Urine Clear; Color Urine Yellow; Glucose Urine UA Negative (Negative); Leukocyte Esterase Urine Negative (Negative); Nitrite Urine Negative (Negative); Specific Gravity - Urine 1.015 (1.005-1.025); UMIC TRIGGER UACC YES; Urine Blood Trace (Negative); Urine Ketones Negative (Negative); Urine Protein Negative (Neg-Trace)
[2023-02-21 09:56] LABS: Bacteria Urine None Seen (None Seen); Squamous Epithelial Cell Urine 0-2 /HPF (0-2); WBC Urine 0-5 /HPF (0-5)
--- NOTE | 2023-02-21 09:56 | MHC.CM.ED ---
Patient transferred to main ER after a fall. Work up negative. and daughter in law will meet with financial counselor today to complete a [facility] application. Continue to monitor for d/c needs.
--- NOTE | 2023-02-21 10:23 | MHC.EDTECH ---
patient finished eating oatmeal. BP taken upon finishing
[2023-02-21] MEDS: lisinopriL 40 MG TABLET PO (10:39)
[2023-02-21] MEDS: hydroCHLOROthiazide 12.5 MG TABLET PO (10:39)
[2023-02-21] MEDS: Metoprolol Tartrate 50 MG TABLET PO ×2 (10:40→21:35)
[2023-02-21] MEDS: OLANZapine 2.5 MG TABLET PO ×2 (10:40→21:35)
--- NOTE | 2023-02-21 10:45 | PC.NURSE ---
Patient resting on bed, easily awoken for medication. Patient able to take medications whole without issue
--- NOTE | 2023-02-21 13:06 | PC.NURSE ---
is visiting at bedside and is taking the pt's money, the and this ad writer counted $57 in total
[2023-02-21 13:13] LABS: Glucose, Whole Blood 148 mg/dL (60-115)
--- NOTE | 2023-02-21 13:52 | MHC.CM.ED ---
Candice from [facility] on-site to visit patient. There is an open investigation. Candice can be reached via telephone at [phone] ext [phone]. Letter from Candice provided to patient's , Adriana, when she arrived to the ER. Adriana will call Candice. Adriana and her daughter in law have an appointment with [facility] financial counseling on Thursday 02/22. Continue to monitor for d/c needs.
[2023-02-21 18:46] LABS: Glucose, Whole Blood 164 mg/dL (60-115)
[2023-02-21] MEDS: Insulin Lispro 100 UNIT/ML 3 ML VIAL SUBCUT (18:57)
--- NOTE | 2023-02-21 19:14 | PC.NURSE ---
Blood sugar 164, patient medicated per JAN.
[2023-02-21] MEDS: Insulin Glargine,Hum.rec.anlog 100 UNIT/ML 10 ML VIAL 7 UNIT SUBCUT (21:35)
[2023-02-21] MEDS: Doxazosin Mesylate 2 MG TABLET PO (21:35)
[2023-02-21] MEDS: Atorvastatin Calcium 80 MG TABLET PO (21:35)
--- NOTE | 2023-02-21 21:41 | PC.NURSE ---
pt resting comfortably on chair in room at this time. Pt has been increasing in agitation over the past few hours. Night medications administered, insulin not administered due to pt eating minimally and getting ready to go to bed. Pt verbalizes minimal head pain at this time
[2023-02-21 21:44] LABS: Glucose, Whole Blood 163 mg/dL (60-115)
[2023-02-21] MEDS: LORazepam 2 MG/ML VIAL 0.5 MG IVPUSH (22:17)
--- NOTE | 2023-02-21 22:27 | PC.NURSE ---
pt medicated with ativan to assist with calming down, pt assisted back to bed and is now eating a ham sandwhcich
--- NOTE | 2023-02-21 23:38 | PC.NURSE ---
pt sleeping in recliner at this time, 1:[address] for pt safety. Pt respirations equal and unlabored, no apparent distress
--- NOTE | 2023-02-22 01:39 | PC.NURSE ---
pt was up to use urinal with the assistance of 1:1 sitter, back to sleep now, respirations even and unlabored, skin pwd, no apparent distress
[2023-02-22 09:11] VITALS: BP 139/75; PULSE 75; RESP 18; O2SAT 95
[2023-02-22] MEDS: hydroCHLOROthiazide 12.5 MG TABLET PO (09:13)
[2023-02-22] MEDS: Metoprolol Tartrate 50 MG TABLET PO ×2 (09:13→20:17)
[2023-02-22] MEDS: lisinopriL 40 MG TABLET PO (09:13)
[2023-02-22] MEDS: OLANZapine 2.5 MG TABLET PO ×2 (09:13→20:17)
--- NOTE | 2023-02-22 09:15 | MHC.EDTECH ---
poc 136 RN Carol aware. patient sitting up on edge of bed and feeding himself breakfast. good spirits this morning.
[2023-02-22 09:16] LABS: Glucose, Whole Blood 136 mg/dL (60-115)
--- NOTE | 2023-02-22 09:30 | PC.NURSE ---
Patient awake ambulating to bathroom with standby assist, steady gait noted. Taking medications per MAR. Calm and cooperative with staff at this time.
--- NOTE | 2023-02-22 13:52 | MHC.EDTECH ---
POC 113 RN Carol arias
[2023-02-22 13:54] LABS: Glucose, Whole Blood 113 mg/dL (60-115)
--- NOTE | 2023-02-22 15:02 | MHC.CM.ED ---
Patient remains in ER. Met with patient's , Adriana. [employer] application completed with [facility] financial counselor. Adriana still has some paperwork to provide to Maddi so MH ye can be submitted. Adriana requesting information on [place] [facility] facilities available in the area with locked dementia units. Paperwork left at patient's bedside as promised to Adriana. No referrals will be made until copy MH application is available. Continue to monitor for d/c needs.
[2023-02-22 17:54] LABS: Glucose, Whole Blood 182 mg/dL (60-115)
[2023-02-22] MEDS: Insulin Lispro 100 UNIT/ML 3 ML VIAL SUBCUT ×2 (17:54→20:16)
--- NOTE | 2023-02-22 19:45 | PC.NURSE ---
Assumed care for pt. Pt ambulatory to the bathroom with walker. Reports no pain or discomfort at this time. Will continue to monitor.
[2023-02-22 20:10] LABS: Glucose, Whole Blood 174 mg/dL (60-115)
[2023-02-22 20:14] VITALS: BP 152/68; PULSE 75; RESP 12; TEMP 37.1; O2SAT 96
[2023-02-22] MEDS: Doxazosin Mesylate 2 MG TABLET PO (20:17)
[2023-02-22] MEDS: Atorvastatin Calcium 80 MG TABLET PO (20:17)
[2023-02-22] MEDS: Insulin Glargine,Hum.rec.anlog 100 UNIT/ML 10 ML VIAL 7 UNIT SUBCUT (20:17)
[2023-02-22] MEDS: LORazepam 1 MG TABLET 2 MG PO (22:03)
[2023-02-22 22:10] VITALS: BP 128/57; PULSE 83; RESP 12; TEMP 36.7; O2SAT 95
--- NOTE | 2023-02-22 22:11 | PC.NURSE ---
Pt found pacing at the bedside stating I am going home. Pt requires multiple redirecting to the bedside as pt is trying to leave. Lorazepam 2mg given po. Pt tolerated well. Pending 1:1 sitter for safety. VSS
--- NOTE | 2023-02-23 02:54 | PC.NURSE ---
Pt sleeping/resting at the bedside in no apparent distress. Breaths are even regular and unlabored. 1:1 sitter at bedside. Will continue to monitor.
[2023-02-23 06:29] VITALS: RESP 17
[2023-02-23] MEDS: Omeprazole 20 MG CAPSULE.DR PO (06:38)
[2023-02-23 09:01] LABS: Glucose, Whole Blood 140 mg/dL (60-115)
[2023-02-23] MEDS: hydroCHLOROthiazide 12.5 MG TABLET PO (09:59)
[2023-02-23] MEDS: OLANZapine 2.5 MG TABLET PO ×2 (10:00→20:54)
[2023-02-23] MEDS: lisinopriL 40 MG TABLET PO (10:00)
[2023-02-23] MEDS: Metoprolol Tartrate 50 MG TABLET PO ×2 (10:00→20:54)
[2023-02-23 10:26] VITALS: BP 131/70; PULSE 113; RESP 16
[2023-02-23 13:33] LABS: Glucose, Whole Blood 254 mg/dL (60-115)
[2023-02-23] MEDS: Insulin Lispro 100 UNIT/ML 3 ML VIAL SUBCUT (13:34)
[2023-02-23 18:38] LABS: Glucose, Whole Blood 146 mg/dL (60-115)
[2023-02-23 20:52] LABS: Glucose, Whole Blood 250 mg/dL (60-115)
[2023-02-23] MEDS: Insulin Glargine,Hum.rec.anlog 100 UNIT/ML 10 ML VIAL 7 UNIT SUBCUT (20:54)
[2023-02-23] MEDS: Atorvastatin Calcium 80 MG TABLET PO (20:54)
[2023-02-23] MEDS: Doxazosin Mesylate 2 MG TABLET PO (20:54)
[2023-02-23 22:10] LABS: Glucose, Whole Blood 255 mg/dL (60-115)
[2023-02-24] MEDS: Omeprazole 20 MG CAPSULE.DR PO (06:04)
[2023-02-24 07:37] VITALS: BP 152/78; PULSE 102; RESP 16; TEMP 36.3; O2SAT 95
[2023-02-24] MEDS: Insulin Lispro 100 UNIT/ML 3 ML VIAL SUBCUT ×3 (07:42→22:27)
[2023-02-24 07:43] LABS: Glucose, Whole Blood 195 mg/dL (60-115)
[2023-02-24] MEDS: OLANZapine 2.5 MG TABLET PO ×2 (07:43→22:25)
[2023-02-24] MEDS: Metoprolol Tartrate 50 MG TABLET PO (07:43)
[2023-02-24] MEDS: lisinopriL 40 MG TABLET PO (07:43)
[2023-02-24] MEDS: hydroCHLOROthiazide 12.5 MG TABLET PO (07:44)
--- NOTE | 2023-02-24 08:06 | PC.NURSE ---
Ambulates to bathroom with steady gait, sitting in chair resting comfortably. Video monitor in place.
--- NOTE | 2023-02-24 13:09 | MHC.CM.ED ---
Patient remains in ER. Patient remains in ER. Patient's spouse, Adriana, met with Maddi from Financial Counselor's Office. Assisted in completing [facility] application. Adriana still has doucments she has to bring to Maddi before application can be submitted. Referrals to long term facilities will be sent when copy of application is available. Continue to monitor for d/c needs.
[2023-02-24 14:05] LABS: Glucose, Whole Blood 169 mg/dL (60-115)
--- NOTE | 2023-02-24 19:14 | PC.NURSE ---
assumed care of pt aox1 no apparent distress, resting comfortably while watching tv requested warm blanket- provided
--- NOTE | 2023-02-24 19:59 | PC.NURSE ---
POC glucose of 169 at 1400 hrs , per protocol 2 units SSI to be given at 1430 hrs per JAN, however insulin not given this nurse assumed care at 1714 hrs spoke to charge, Freddy RN to confirm that insulin from 1430 hrs not be given at this point in time spoke to provider EVERARDO Camejo to make her aware of POC glucose time and time insulin should have been given per Nell POC glucose to be done QIDACHS- POC glucose on worklist modified to QIDACHS POC glucose to follow at 2100 hrs AMADA Mackay aware will CTM
[2023-02-24 22:24] LABS: Glucose, Whole Blood 241 mg/dL (60-115)
[2023-02-24] MEDS: Atorvastatin Calcium 80 MG TABLET PO (22:25)
[2023-02-24] MEDS: Doxazosin Mesylate 2 MG TABLET PO (22:25)
[2023-02-24] MEDS: Insulin Glargine,Hum.rec.anlog 100 UNIT/ML 10 ML VIAL 7 UNIT SUBCUT (22:27)
[2023-02-24 22:28] VITALS: BP 111/46; PULSE 82; RESP 17; TEMP 36.5; O2SAT 94
--- NOTE | 2023-02-24 22:37 | PC.NURSE ---
did not administer 50 mg metoprolol PO d/t BP 111/46 made EVERARDO Camejo aware of BP and asked if she agreed with it being held per EVERARDO Camejo hold med
[2023-02-25 05:47] VITALS: RESP 17
--- NOTE | 2023-02-25 07:00 | PC.NURSE ---
Assumed care of patient; patient is currently resting on bed with eyes closed at this time.
[2023-02-25 07:54] VITALS: BP 100/62; PULSE 95; RESP 17; O2SAT 95
[2023-02-25 08:01] LABS: Glucose, Whole Blood 158 mg/dL (60-115)
[2023-02-25] MEDS: Omeprazole 20 MG CAPSULE.DR PO (08:03)
[2023-02-25] MEDS: Insulin Lispro 100 UNIT/ML 3 ML VIAL SUBCUT ×4 (08:03→20:33)
[2023-02-25] MEDS: OLANZapine 2.5 MG TABLET PO ×2 (08:03→20:29)
[2023-02-25] MEDS: hydroCHLOROthiazide 12.5 MG TABLET PO (08:03)
[2023-02-25] MEDS: lisinopriL 40 MG TABLET PO (08:03)
[2023-02-25] MEDS: Metoprolol Tartrate 50 MG TABLET PO ×2 (08:04→20:29)
--- NOTE | 2023-02-25 10:26 | MHC.CM.PN ---
PT IN NEED OF LTC PLACEMENT SNF REFERRALS TO BE MADE PENDING KURTATH BELKIS COMPLETION
[2023-02-25 12:41] LABS: Glucose, Whole Blood 218 mg/dL (60-115)
[2023-02-25 14:42] VITALS: BP 110/83; PULSE 72; RESP 13; O2SAT 97
--- NOTE | 2023-02-25 16:55 | PC.NURSE ---
Patient resting on chair with eyes closed at this time.
[2023-02-25 17:45] LABS: Glucose, Whole Blood 275 mg/dL (60-115)
[2023-02-25] MEDS: Doxazosin Mesylate 2 MG TABLET PO (20:29)
[2023-02-25] MEDS: Atorvastatin Calcium 80 MG TABLET PO (20:29)
[2023-02-25] MEDS: Insulin Glargine,Hum.rec.anlog 100 UNIT/ML 10 ML VIAL 7 UNIT SUBCUT (20:30)
[2023-02-25 20:31] LABS: Glucose, Whole Blood 239 mg/dL (60-115)
[2023-02-25 20:40] VITALS: BP 112/52; PULSE 71; RESP 18; TEMP 36.6; O2SAT 98
[2023-02-26] VITALS (10 sets, daily range): BP systolic 103–155; BP diastolic 42–96; PULSE 71–107; RESP 13–19; TEMP 36.7–37; O2SAT 94–99
[2023-02-26] MEDS: LORazepam 2 MG/ML VIAL IM (04:45)
--- NOTE | 2023-02-26 04:45 | PC.NURSE ---
Pt severely agitated and trying to leave department. Security and additional ED staff to bedside. Pt medicated per JAN with 2mg Ativan IM to left deltoid.
[2023-02-26 07:28] LABS: Glucose, Whole Blood 214 mg/dL (60-115)
[2023-02-26] MEDS: Omeprazole 20 MG CAPSULE.DR PO (08:10)
[2023-02-26] MEDS: OLANZapine 2.5 MG TABLET PO ×2 (09:39→23:55)
[2023-02-26] MEDS: Metoprolol Tartrate 50 MG TABLET PO ×2 (09:39→23:55)
[2023-02-26] MEDS: lisinopriL 40 MG TABLET PO (09:39)
[2023-02-26] MEDS: hydroCHLOROthiazide 12.5 MG TABLET PO (09:39)
--- NOTE | 2023-02-26 09:45 | PC.NURSE ---
patient awake/alert to baseline- alert to self, oob to chair playing cards, pt denies pain/discomfort, vss, pt medicated per order, pt safety camera intact, fall precautions intact, call sorensen within reach, will continue to monitor
--- NOTE | 2023-02-26 10:36 | MHC.EDTECH ---
late note. ambulated with patient twice around the main ED
--- NOTE | 2023-02-26 11:13 | PC.NURSE ---
patient ambulatingthe ED with stby assist of a tech
--- NOTE | 2023-02-26 12:00 | MHC.CM.ED ---
Patient remains in ER. Met with patient's , Adriana at her request. [facility] would be her 1st choice. Adriana is still in the process of completing the [employer] application with Maddi at [facility] financial counseling. Adriana is waiting for a copy of her bank statement. Continue to monitor for d/c needs.
--- NOTE | 2023-02-26 12:10 | PC.NURSE ---
patient alert to self, family visiting at bedside, pt ambulated with tech and wheeled walker, will continue monitor
[2023-02-26 12:42] LABS: Glucose, Whole Blood 254 mg/dL (60-115)
[2023-02-26] MEDS: Insulin Lispro 100 UNIT/ML 3 ML VIAL SUBCUT ×2 (14:23→19:43)
--- NOTE | 2023-02-26 14:24 | PC.NURSE ---
patient ate lunch late, pt medicated with insulin per order, camera and fall precautions remain intact
[2023-02-26 17:17] LABS: Glucose, Whole Blood 174 mg/dL (60-115)
--- NOTE | 2023-02-26 19:45 | PC.NURSE ---
patient alert to person only, pt believes he is in his vehicle and looking for his keys, pt continues to ambulate during the shift on the unit with tech, while in room there is a camera for patient safety, pt medicated late with insulin as he ate dinner late, call sorensen within reach, will continue to monitor
[2023-02-26] MEDS: Doxazosin Mesylate 2 MG TABLET PO (23:55)
[2023-02-26] MEDS: Atorvastatin Calcium 80 MG TABLET PO (23:55)
[2023-02-26 23:59] LABS: Glucose, Whole Blood 211 mg/dL (60-115)
[2023-02-27] MEDS: Insulin Lispro 100 UNIT/ML 3 ML VIAL SUBCUT ×2 (00:01→20:09)
[2023-02-27] MEDS: Insulin Glargine,Hum.rec.anlog 100 UNIT/ML 10 ML VIAL 7 UNIT SUBCUT ×2 (00:02→21:45)
--- NOTE | 2023-02-27 00:08 | PC.NURSE ---
Medication per Mar, Will continue to monitor
[2023-02-27 03:27] VITALS: BP 130/63; PULSE 69; RESP 16; TEMP 36.6; O2SAT 96
--- NOTE | 2023-02-27 05:36 | PC.NURSE ---
pt is resting in bed no sign of distress, continue with a 1:1
[2023-02-27 08:29] LABS: Glucose, Whole Blood 134 mg/dL (60-115)
[2023-02-27 08:32] VITALS: BP 112/47; PULSE 84; RESP 18; O2SAT 96
[2023-02-27] MEDS: OLANZapine 2.5 MG TABLET PO ×2 (08:33→21:45)
[2023-02-27] MEDS: Omeprazole 20 MG CAPSULE.DR PO (08:34)
[2023-02-27] MEDS: lisinopriL 40 MG TABLET PO (08:34)
[2023-02-27] MEDS: Metoprolol Tartrate 50 MG TABLET PO ×2 (08:34→21:45)
[2023-02-27] MEDS: hydroCHLOROthiazide 12.5 MG TABLET PO (08:34)
[2023-02-27 12:47] LABS: Glucose, Whole Blood 139 mg/dL (60-115)
--- NOTE | 2023-02-27 14:48 | MHC.CM.ED ---
Patient remains in ER. Per Maddi [facility] financial counselor, Adriana needs to complete MH application and provide more documents. If Adriana visits patient, please make sure she touches base with Maddi. Adriana has not been bedside yet. Continue to monitor for d/c needs.
[2023-02-27 19:19] LABS: Glucose, Whole Blood 183 mg/dL (60-115)
[2023-02-27 21:29] VITALS: BP 139/63; PULSE 82; RESP 16; TEMP 36.4; O2SAT 97
[2023-02-27] MEDS: Doxazosin Mesylate 2 MG TABLET PO (21:45)
[2023-02-27] MEDS: Atorvastatin Calcium 80 MG TABLET PO (21:45)
--- NOTE | 2023-02-27 22:12 | PC.NURSE ---
Pt A&O to self and year, denies any pain. Pt ambulates independently to BR, observation camera in place. 2100 Insulin coverage not given, this fha underwriter assumed care at 1900, POC taken at and insulin given at 2008.
[2023-02-27 22:13] LABS: Glucose, Whole Blood 199 mg/dL (60-115)
--- NOTE | 2023-02-28 03:16 | PC.NURSE ---
Pt appears to be sleeping, no apparent distress, RR 16. 1:1 sitter at bedside. Will CTM.
[2023-02-28] MEDS: Omeprazole 20 MG CAPSULE.DR PO (05:59)
[2023-02-28 08:50] LABS: Glucose, Whole Blood 120 mg/dL (60-115)
[2023-02-28 08:59] VITALS: BP 83/51; PULSE 95; RESP 18; TEMP 36.4; O2SAT 94
[2023-02-28 09:17] VITALS: BP 88/45; PULSE 91; O2SAT 95
[2023-02-28] MEDS: OLANZapine 2.5 MG TABLET PO ×2 (10:16→20:42)
--- NOTE | 2023-02-28 10:50 | PC.NURSE ---
Emerita BRANDON made aware of Low BP - informed to push fluids at this time, assist pt with ambulation. pt asymptomatic. AM BP meds held
[2023-02-28 10:58] VITALS: BP 141/57
[2023-02-28 12:53] LABS: Glucose, Whole Blood 181 mg/dL (60-115)
[2023-02-28 12:56] VITALS: BP 150/61; PULSE 84; RESP 17; O2SAT 97
--- NOTE | 2023-02-28 18:22 | PC.NURSE ---
dinner time insulin not given, pt was given his tray without POC being taken.
[2023-02-28 19:45] VITALS: BP 103/61; PULSE 94; RESP 16; TEMP 36.3; O2SAT 94
--- NOTE | 2023-02-28 20:31 | PC.NURSE ---
Assumed care of pt. Pt alert and oriented to self, resting at the bedside. No apparent distress noted. Reports no pain. Reports just waiting on my ticket to go home. Denies food or liquids at this time. Will continue to monitor.
[2023-02-28 20:38] LABS: Glucose, Whole Blood 213 mg/dL (60-115)
[2023-02-28] MEDS: Insulin Lispro 100 UNIT/ML 3 ML VIAL SUBCUT (20:42)
[2023-02-28] MEDS: Atorvastatin Calcium 80 MG TABLET PO (20:42)
[2023-02-28] MEDS: Insulin Glargine,Hum.rec.anlog 100 UNIT/ML 10 ML VIAL 7 UNIT SUBCUT (20:42)
[2023-02-28] MEDS: Metoprolol Tartrate 50 MG TABLET PO (20:42)
[2023-02-28] MEDS: Doxazosin Mesylate 2 MG TABLET PO (20:42)
[2023-02-28 22:00] VITALS: BP 119/49; PULSE 88; RESP 16; TEMP 36.8; O2SAT 94
[2023-03-01] MEDS: OLANZapine 5 MG TABLET PO (01:45)
[2023-03-01] MEDS: diphenhydrAMINE HCL 25 MG CAPSULE PO (01:45)
--- NOTE | 2023-03-01 01:49 | PC.NURSE ---
Pt alert and oriented to self. Ambulatory with no assist. Medicated as ordered. Pt tolerated well. No apparent distress noted. Will continue to monitor.
[2023-03-01 06:12] VITALS: BP 113/62; PULSE 81; RESP 12; TEMP 36.5; O2SAT 97
[2023-03-01] MEDS: Omeprazole 20 MG CAPSULE.DR PO (06:13)
[2023-03-01 07:35] VITALS: BP 97/50; PULSE 118; O2SAT 95
[2023-03-01 07:45] LABS: Glucose, Whole Blood 163 mg/dL (60-115)
--- NOTE | 2023-03-01 08:37 | PC.NURSE ---
report taken from corey hook pt here for case mgmt placement, hx of dementia, pleasant on first contact. ate 100% breakfast, ambulatory w steady gait, needs redirection, redirectable. wctm for dc needs.
[2023-03-01] MEDS: OLANZapine 2.5 MG TABLET PO ×2 (09:46→21:17)
[2023-03-01] MEDS: lisinopriL 40 MG TABLET PO (09:46)
[2023-03-01] MEDS: hydroCHLOROthiazide 12.5 MG TABLET PO (09:47)
[2023-03-01] MEDS: Metoprolol Tartrate 50 MG TABLET PO ×2 (09:47→21:17)
--- NOTE | 2023-03-01 10:35 | MHC.CM.ED ---
Patient remains in ER. Patient's , Adriana, will meet with Maddi of [facility] financial counseling to complete [employer] ye and provide necessary bank statements. Robert to monitor for d/c needs.
--- NOTE | 2023-03-01 12:12 | PC.NURSE ---
pt ambulated with pct over to pod to take shower, brush teeth, and groom self. ambulated back to room in pleasant spirits, bed linens changed for day. pt provided with several activities to occupy time, frequently ambulating out of room, redirectable. pleasantly confused.
[2023-03-01 18:44] LABS: Glucose, Whole Blood 189 mg/dL (60-115)
[2023-03-01 19:01] LABS: Glucose, Whole Blood 171 mg/dL (60-115)
[2023-03-01] MEDS: Insulin Lispro 100 UNIT/ML 3 ML VIAL SUBCUT ×2 (19:03→21:18)
[2023-03-01 21:01] LABS: Glucose, Whole Blood 178 mg/dL (60-115)
[2023-03-01 21:10] VITALS: RESP 18
[2023-03-01] MEDS: Insulin Glargine,Hum.rec.anlog 100 UNIT/ML 10 ML VIAL 7 UNIT SUBCUT (21:17)
[2023-03-01] MEDS: Atorvastatin Calcium 80 MG TABLET PO (21:17)
[2023-03-01] MEDS: Doxazosin Mesylate 2 MG TABLET PO (21:51)
--- NOTE | 2023-03-02 06:46 | PC.NURSE ---
Assumed care of pt. at 1900. Pt. didn't eat his dinner tonight. It was reported, however, he'd eaten well during the day. Pt. spent time sitting in his recliner, watching the baseball game. Pt. up a few times during the shift, but easily redirected back to his room and bed and/or recliner. Pt. up to use the bathroom. pt. finally fell asleep in recliner around 530am and was assisted into bed for safety and comfort.
--- NOTE | 2023-03-02 09:53 | PC.NURSE ---
has been sleeping all morning, resp even and unlabored, meds held as pt was reported to have been up all night from overnight rn
[2023-03-02] MEDS: lisinopriL 40 MG TABLET PO (12:29)
[2023-03-02] MEDS: OLANZapine 2.5 MG TABLET PO ×2 (12:29→21:01)
[2023-03-02] MEDS: hydroCHLOROthiazide 12.5 MG TABLET PO (12:29)
[2023-03-02] MEDS: Omeprazole 20 MG CAPSULE.DR PO (12:29)
[2023-03-02] MEDS: Metoprolol Tartrate 50 MG TABLET PO ×2 (12:29→21:01)
[2023-03-02 12:32] VITALS: BP 117/65; PULSE 100; RESP 19; O2SAT 95
--- NOTE | 2023-03-02 12:45 | PC.NURSE ---
slept all morning, nad, pleasantly confused, ate some of reheated breakfast and now eating some of his lunch, skin wpd, steady gait w walker, at bedside, nad
[2023-03-02 14:18] LABS: Glucose, Whole Blood 119 mg/dL (60-115)
--- NOTE | 2023-03-02 14:26 | PC.NURSE ---
PT RECEIVED INTO BED 8 FROM MAIN ED. BED ALARM.
[2023-03-02 14:48] VITALS: BP 104/50; PULSE 105; RESP 18; TEMP 36.7; O2SAT 95
[2023-03-02 16:32] LABS: Glucose, Whole Blood 237 mg/dL (60-115)
[2023-03-02] MEDS: Insulin Lispro 100 UNIT/ML 3 ML VIAL SUBCUT (17:59)
--- NOTE | 2023-03-02 18:40 | PC.NURSE ---
pt awake ,cooperative, ate dinner 100%, ambulated to the bathroom, watching TV
[2023-03-02 20:53] LABS: Glucose, Whole Blood 109 mg/dL (60-115)
[2023-03-02] MEDS: Doxazosin Mesylate 2 MG TABLET PO (21:01)
[2023-03-02] MEDS: Insulin Glargine,Hum.rec.anlog 100 UNIT/ML 10 ML VIAL 7 UNIT SUBCUT (21:01)
[2023-03-03 06:10] VITALS: BP 92/45; PULSE 60; RESP 16; TEMP 36.6; O2SAT 95
[2023-03-03] MEDS: Omeprazole 20 MG CAPSULE.DR PO (06:27)
[2023-03-03 07:11] LABS: Glucose, Whole Blood 120 mg/dL (60-115)
[2023-03-03] MEDS: hydroCHLOROthiazide 12.5 MG TABLET PO (08:02)
[2023-03-03] MEDS: lisinopriL 40 MG TABLET PO (08:02)
[2023-03-03] MEDS: OLANZapine 2.5 MG TABLET PO ×2 (08:02→21:29)
[2023-03-03] MEDS: Metoprolol Tartrate 50 MG TABLET PO ×2 (08:03→21:29)
[2023-03-03 08:06] VITALS: BP 123/62; PULSE 106
[2023-03-03 12:55] LABS: Glucose, Whole Blood 129 mg/dL (60-115)
--- NOTE | 2023-03-03 12:58 | PC.NURSE ---
Blood sugars today were 120 and 129.
[2023-03-03 14:00] VITALS: BP 142/74; PULSE 98; RESP 18; TEMP 35.8; O2SAT 94
--- NOTE | 2023-03-03 16:51 | MHC.EDTECH ---
pt was escorted to bathroom ,void we walk around then back to bed to watch Keenjar movie .
[2023-03-03 18:25] LABS: Glucose, Whole Blood 183 mg/dL (60-115)
[2023-03-03] MEDS: Insulin Lispro 100 UNIT/ML 3 ML VIAL SUBCUT ×2 (18:32→21:53)
--- NOTE | 2023-03-03 19:00 | MHC.EDTECH ---
pt ate 100 % of supper ,drank 360 ml fluids .
[2023-03-03 20:56] VITALS: BP 116/54; PULSE 72; RESP 16; TEMP 36.7; O2SAT 97
--- NOTE | 2023-03-03 21:13 | MHC.EDTECH ---
pt blood sugar check and vitals sign taken ,pt watching television in bed .
[2023-03-03] MEDS: Insulin Glargine,Hum.rec.anlog 100 UNIT/ML 10 ML VIAL 7 UNIT SUBCUT (21:29)
[2023-03-03] MEDS: Doxazosin Mesylate 2 MG TABLET PO (21:30)
[2023-03-03] MEDS: Atorvastatin Calcium 80 MG TABLET PO (21:30)
[2023-03-03 21:31] LABS: Glucose, Whole Blood 172 mg/dL (60-115)
--- NOTE | 2023-03-04 00:15 | MHC.EDTECH ---
pt was escorted to bathroom ,void then back to bed .
[2023-03-04] MEDS: OLANZapine 5 MG TABLET PO (01:54)
--- NOTE | 2023-03-04 06:41 | PC.NURSE ---
Patient agitated, wanting to walk independently with unsteady gait, trying to hit staff, did not sleep most of the night, stating he wants to go to work. Order retrieved for zyprexa, patient tolerated well, resting and less agitated for 1 hour.
[2023-03-04 08:13] VITALS: BP 103/49; PULSE 77; RESP 18; TEMP 36.4; O2SAT 95
[2023-03-04] MEDS: Metoprolol Tartrate 50 MG TABLET PO ×2 (08:15→21:30)
[2023-03-04] MEDS: lisinopriL 40 MG TABLET PO (08:15)
[2023-03-04] MEDS: OLANZapine 2.5 MG TABLET PO ×2 (08:15→21:30)
[2023-03-04] MEDS: hydroCHLOROthiazide 12.5 MG TABLET PO (08:15)
--- NOTE | 2023-03-04 08:17 | PC.NURSE ---
routine morning medications admin- calm and cooperative with staff. patient observer at the bedside. call sorensen placed within reach.
--- NOTE | 2023-03-04 11:18 | MHC.CM.PN ---
PER CM NOTES, PT IS AWAITING LTC PLACEMENT. [facility] IS [facility]ED [facility]. PT DOES NOT YET HAVE A PAYER SOURCE. [facility] IN PROCESS CM FOLLOWING FOR PLACEMENT ONCE PAYER ON BOARD
[2023-03-04 13:02] LABS: Glucose, Whole Blood 143 mg/dL (60-115)
[2023-03-04 15:43] VITALS: BP 96/64; PULSE 105; RESP 18; O2SAT 96
--- NOTE | 2023-03-04 18:43 | PC.NURSE ---
patient eating dinner in the activity room. patient observer sitting at table with patient
[2023-03-04 18:49] LABS: Glucose, Whole Blood 167 mg/dL (60-115)
[2023-03-04 20:24] LABS: Glucose, Whole Blood 216 mg/dL (60-115)
[2023-03-04 21:16] VITALS: BP 122/58; PULSE 78; RESP 18; TEMP 36.8; O2SAT 94
[2023-03-04] MEDS: Insulin Glargine,Hum.rec.anlog 100 UNIT/ML 10 ML VIAL 7 UNIT SUBCUT (21:20)
[2023-03-04] MEDS: Insulin Lispro 100 UNIT/ML 3 ML VIAL SUBCUT (21:21)
[2023-03-04] MEDS: Doxazosin Mesylate 2 MG TABLET PO (21:30)
--- NOTE | 2023-03-04 22:46 | PC.NURSE ---
calm and cooperative, pleasant. offering no complaints, resting currently.
--- NOTE | 2023-03-05 00:30 | PC.NURSE ---
Assumed care at 2300. Pt ambulated with stand-by assistance to bathroom, steady gait. Pt back to bed, resting comfortably watching television. Call sorensen within reach, observation camera in place.
[2023-03-05] MEDS: Omeprazole 20 MG CAPSULE.DR PO (05:56)
[2023-03-05 07:04] LABS: Glucose, Whole Blood 97 mg/dL (60-115)
[2023-03-05 07:22] LABS: Glucose, Whole Blood 108 mg/dL (60-115)
[2023-03-05 07:33] VITALS: BP 132/63; PULSE 83; RESP 20; TEMP 36.4; O2SAT 98
[2023-03-05] MEDS: Metoprolol Tartrate 50 MG TABLET PO ×2 (08:17→20:55)
[2023-03-05] MEDS: lisinopriL 40 MG TABLET PO (08:17)
[2023-03-05] MEDS: hydroCHLOROthiazide 12.5 MG TABLET PO (08:17)
[2023-03-05] MEDS: OLANZapine 2.5 MG TABLET PO ×2 (08:17→20:54)
--- NOTE | 2023-03-05 10:39 | MHC.CM.ED ---
Patient remains in ER overflow. Per Maddi, in financial counseling, all of the needed documentation has been obtained. Maddi will fax the MH ye and documents to and then to CM. is aware she will have to privately pay for 2-3 months of care before will be approved. Referral to [facility] will be made when ye is received. Continue to monitor for d/c needs.
--- NOTE | 2023-03-05 11:01 | MHC.EDTECH ---
am care given , patient transferred to recliner chair . vital signs up to date. patient offers no complaints at this time
[2023-03-05 13:16] LABS: Glucose, Whole Blood 141 mg/dL (60-115)
[2023-03-05 15:50] VITALS: BP 122/62; PULSE 78; RESP 15; TEMP 36.6; O2SAT 95
[2023-03-05 17:56] LABS: Glucose, Whole Blood 195 mg/dL (60-115)
[2023-03-05] MEDS: Insulin Lispro 100 UNIT/ML 3 ML VIAL SUBCUT ×2 (17:57→20:54)
[2023-03-05 20:30] LABS: Glucose, Whole Blood 187 mg/dL (60-115)
[2023-03-05] MEDS: Insulin Glargine,Hum.rec.anlog 100 UNIT/ML 10 ML VIAL 7 UNIT SUBCUT (20:54)
[2023-03-05] MEDS: Doxazosin Mesylate 2 MG TABLET PO (20:55)
[2023-03-05 20:57] VITALS: BP 128/69; PULSE 86; RESP 16; TEMP 36.9; O2SAT 97
--- NOTE | 2023-03-05 21:38 | MHC.CM.ED ---
Copy of MH application received from [employer]. Uploaded into Care Port. Referral made to [facility], as it is pt 's first choice. Pt will need a locked unit, as he wanders. Per Maddi in finance, will need to bring in more documents next week, will be pre-paying for her and her husbands , and will be paying LTC for several months, to pay down for MH. Will refer to additional facilities if memory does not offer a bed. CM will continue to monitor for discharge needs.
[2023-03-05] MEDS: Atorvastatin Calcium 80 MG TABLET PO (22:10)
[2023-03-05 23:34] VITALS: BP 116/57; PULSE 58; RESP 16; TEMP 35.9; O2SAT 95
--- NOTE | 2023-03-06 01:03 | PC.NURSE ---
Patient ambulated to bathroom with walker and standby assist multiple times, steady gait. Bedtime medications administered, bedtime poc 187, vss. Patient requested snack and warm blanket. Patient often stating he needs to go to work, pt redirectable at this time. Offers no complaints at this time.
[2023-03-06 06:00] VITALS: BP 122/86; PULSE 79; RESP 16; TEMP 36.3; O2SAT 95
[2023-03-06] MEDS: Omeprazole 20 MG CAPSULE.DR PO (06:35)
--- NOTE | 2023-03-06 07:27 | PC.NURSE ---
Assumed care of patient at this time.
[2023-03-06] MEDS: OLANZapine 2.5 MG TABLET PO ×2 (07:41→20:25)
[2023-03-06] MEDS: hydroCHLOROthiazide 12.5 MG TABLET PO (07:41)
[2023-03-06] MEDS: Metoprolol Tartrate 50 MG TABLET PO ×2 (07:41→20:25)
[2023-03-06] MEDS: lisinopriL 40 MG TABLET PO (07:41)
[2023-03-06 07:49] LABS: Glucose, Whole Blood 116 mg/dL (60-115)
--- NOTE | 2023-03-06 07:55 | MHC.EDTECH ---
after morning medication, staff checked patients blood glucose and reported it to the nurse.
--- NOTE | 2023-03-06 10:02 | MHC.EDTECH ---
patient walked to the bathroom with the nurse and a walker. Patient was able to have a BM.
--- NOTE | 2023-03-06 11:19 | MHC.CM.ED ---
Patient remains in ER overflow. [facility] is not able to offer a bed. Referral broadcasted to all facilities within 25 miles with locked dementia units. 10 additional referrals made. Continue to monitor for d/c needs.
[2023-03-06 13:16] LABS: Glucose, Whole Blood 104 mg/dL (60-115)
[2023-03-06] MEDS: Insulin Lispro 100 UNIT/ML 3 ML VIAL SUBCUT ×2 (18:01→20:24)
[2023-03-06 18:02] LABS: Glucose, Whole Blood 204 mg/dL (60-115)
[2023-03-06 18:31] VITALS: BP 123/61; PULSE 108; RESP 16; TEMP 36.7; O2SAT 96
[2023-03-06 20:08] LABS: Glucose, Whole Blood 172 mg/dL (60-115)
[2023-03-06] MEDS: Insulin Glargine,Hum.rec.anlog 100 UNIT/ML 10 ML VIAL 7 UNIT SUBCUT (20:24)
[2023-03-06] MEDS: Atorvastatin Calcium 80 MG TABLET PO (20:25)
[2023-03-06] MEDS: Doxazosin Mesylate 2 MG TABLET PO (20:25)
[2023-03-06 20:27] VITALS: BP 118/62; PULSE 71; RESP 18; TEMP 36.3; O2SAT 97
[2023-03-07 06:00] VITALS: BP 101/53; PULSE 67; RESP 18; TEMP 36.4; O2SAT 95
[2023-03-07 06:24] LABS: Glucose, Whole Blood 106 mg/dL (60-115)
--- NOTE | 2023-03-07 06:58 | PC.NURSE ---
Resumed care of patient this morning, he is currently resting in bed sleeping at this time. All needs have been met, safety measures in place.
[2023-03-07 09:15] LABS: Glucose, Whole Blood 190 mg/dL (60-115)
[2023-03-07] MEDS: Metoprolol Tartrate 50 MG TABLET PO ×2 (09:22→20:37)
[2023-03-07] MEDS: OLANZapine 2.5 MG TABLET PO ×2 (09:22→20:37)
[2023-03-07] MEDS: Insulin Lispro 100 UNIT/ML 3 ML VIAL SUBCUT ×4 (09:22→20:38)
[2023-03-07] MEDS: hydroCHLOROthiazide 12.5 MG TABLET PO (09:22)
[2023-03-07] MEDS: lisinopriL 40 MG TABLET PO (09:22)
--- NOTE | 2023-03-07 11:26 | MHC.CM.ED ---
Patient remains in ER overflow. Patient's , Adriana made aware there are no beds available within 25 miles of patient's home with locked units. [facility] still reviewing at this time. Adriana aware she will have to privately pay for facility for 2-3 months. Adriana states Linda from financial counseling did not inform her of this. Adriana has hired [employer] to help with the [employer] application. After telephone call, T/W received notification [facility] will not be able to offer a bed. Referral broadcasted within 50 miles of patient's home to all facilities that have locked units. Continue to monitor for d/c needs.
[2023-03-07 12:46] LABS: Glucose, Whole Blood 169 mg/dL (60-115)
[2023-03-07 14:00] VITALS: BP 108/57; PULSE 97; RESP 17; TEMP 36.6; O2SAT 96
--- NOTE | 2023-03-07 14:33 | PC.NURSE ---
Assumed care of patient, pt resting comfortably in bed watching tv
--- NOTE | 2023-03-07 16:00 | MHC.EDTECH ---
THIS PCT ASSUMED CARE OF PT AT 1500 ,1600 ROUNDING DONE ,PT WAS SITTING IN RECLINER ,ICE CREAM GIVING FOR SNACK ,PT WAS ESCORTED TO BATHROOM WITH HIS WALKER AND PT VOID NO BOWEL MOVEMENT ,BACK TO RECLINER .
[2023-03-07 18:03] LABS: Glucose, Whole Blood 155 mg/dL (60-115)
--- NOTE | 2023-03-07 19:47 | MHC.EDTECH ---
PT ATE 100 5 OF MEAL DRANK 360 ML FLUIDS ,AFTER DINNER PT WAS ASSISTED TO WASHUP ,VITALS SIGN TAKEN ,PT VOID ,AND IN BED WATCHING TELEVISION .
[2023-03-07 19:48] VITALS: BP 142/65; PULSE 68; RESP 16; TEMP 36.8; O2SAT 98
[2023-03-07] MEDS: Insulin Glargine,Hum.rec.anlog 100 UNIT/ML 10 ML VIAL 7 UNIT SUBCUT (20:37)
[2023-03-07] MEDS: Doxazosin Mesylate 2 MG TABLET PO (20:37)
[2023-03-07 20:55] LABS: Glucose, Whole Blood 192 mg/dL (60-115)
--- NOTE | 2023-03-07 23:44 | PC.NURSE ---
assumed care of pt resting quietly, while watching tv calm/cooperative no apparent distress
--- NOTE | 2023-03-08 01:06 | PC.NURSE ---
pt redirected as he was trying to get out of bed
--- NOTE | 2023-03-08 01:07 | PC.NURSE ---
standby assist with walker to restroom and back to bed
--- NOTE | 2023-03-08 02:20 | PC.NURSE ---
pt requesting to leave at this time, pt easily re-directed back to laying. This RN provided pt with a blanket and pt is now resting comfortably, denies pain, no apparent distress at this time
--- NOTE | 2023-03-08 02:26 | PC.NURSE ---
pt redirected as he was trying to get out of bed
--- NOTE | 2023-03-08 04:29 | PC.NURSE ---
pt out of bed refused to use walker trying to leave facility pt stated, I don't want to have to hurt you . while this nurse tried to keep door closed to prevent pt from exiting MD aware, security, and charge nurse aware pt refused meds
--- NOTE | 2023-03-08 05:13 | PC.NURSE ---
pt refused vs
[2023-03-08] MEDS: Omeprazole 20 MG CAPSULE.DR PO (06:33)
[2023-03-08 09:03] LABS: Glucose, Whole Blood 120 mg/dL (60-115)
[2023-03-08] MEDS: lisinopriL 40 MG TABLET PO (09:05)
[2023-03-08] MEDS: OLANZapine 2.5 MG TABLET PO ×2 (09:05→21:32)
[2023-03-08] MEDS: hydroCHLOROthiazide 12.5 MG TABLET PO (09:05)
[2023-03-08] MEDS: Metoprolol Tartrate 50 MG TABLET PO (09:05)
--- NOTE | 2023-03-08 10:31 | PC.NURSE ---
Pt ambulating around unit with walker, strong gait. stand by assist.
--- NOTE | 2023-03-08 11:03 | MHC.EDTECH ---
patient showered. clean neema and bed linen. went outside with volunteer/menagerie superintendent.(education nurse)
[2023-03-08 11:48] LABS: Glucose, Whole Blood 216 mg/dL (60-115)
[2023-03-08] MEDS: Insulin Lispro 100 UNIT/ML 3 ML VIAL SUBCUT ×2 (11:49→16:50)
--- NOTE | 2023-03-08 15:45 | PC.NURSE ---
Pt confused thinking he is leaving to go to judaism. Pt ambulatory with walker to and from restroom multiple times today. Calm and cooperative with staff. Pt also went outside today.
--- NOTE | 2023-03-08 15:57 | MHC.CM.ED ---
Patient remains in Er overflow. No bed offers at this time. Continue to monitor for d/c needs.
[2023-03-08 16:00] VITALS: BP 107/62; PULSE 86; RESP 18; TEMP 36.5; O2SAT 97
[2023-03-08 16:43] LABS: Glucose, Whole Blood 153 mg/dL (60-115)
--- NOTE | 2023-03-08 19:33 | MHC.EDTECH ---
this pct assumed care of pt at 1500 ,pt was escorted to bathroom ,void lg amount of urine ,then we went for a walk ,back to recliner ,patient spoke to his ,had ice cream for snack pt watching television .
--- NOTE | 2023-03-08 19:35 | MHC.EDTECH ---
Addendum entered by Sanford Gage 03/08/23 20:08: pt was assisted to clean his dentures ,lotion and baby powder apply ,ice cream giving for hs snack . Original Note: pt ate 100 % of supper ,drank 480 ml fluids ,vitals sign taken pt was assisted to wash up for the night .
[2023-03-08 19:36] VITALS: BP 99/56; PULSE 96; RESP 16; TEMP 36.8; O2SAT 98
[2023-03-08 21:11] LABS: Glucose, Whole Blood 236 mg/dL (60-115)
--- NOTE | 2023-03-08 21:41 | PC.NURSE ---
Pt bp 99/56 calling provider to confirm approval of holding med at this time Per ALEKSANDR Barrera held 50 mg metoprolol d/t pt's bp of 99/56
--- NOTE | 2023-03-08 22:03 | PC.NURSE ---
Addendum entered by Ashlee Hernandez 03/08/23 22:06: @194 Original Note: assumed care of pt aox1 no apparent distress, resting quietly
[2023-03-09] MEDS: Doxazosin Mesylate 2 MG TABLET PO ×2 (00:02→21:33)
[2023-03-09] MEDS: Atorvastatin Calcium 80 MG TABLET PO ×2 (00:02→21:33)
[2023-03-09] MEDS: Insulin Lispro 100 UNIT/ML 3 ML VIAL SUBCUT ×3 (00:02→21:36)
[2023-03-09] MEDS: Insulin Glargine,Hum.rec.anlog 100 UNIT/ML 10 ML VIAL 7 UNIT SUBCUT ×2 (00:02→21:36)
[2023-03-09 00:11] LABS: Glucose, Whole Blood 230 mg/dL (60-115)
--- NOTE | 2023-03-09 02:20 | MHC.EDTECH ---
pt was assisted to bathroom void and back to bed .
[2023-03-09 05:41] VITALS: BP 130/51; PULSE 69; RESP 16; TEMP 36.3; O2SAT 98
[2023-03-09] MEDS: Omeprazole 20 MG CAPSULE.DR PO (05:42)
[2023-03-09 07:12] LABS: Glucose, Whole Blood 120 mg/dL (60-115)
[2023-03-09] MEDS: Metoprolol Tartrate 50 MG TABLET PO (09:13)
[2023-03-09] MEDS: lisinopriL 40 MG TABLET PO (09:13)
[2023-03-09] MEDS: OLANZapine 2.5 MG TABLET PO ×2 (09:13→21:33)
[2023-03-09] MEDS: hydroCHLOROthiazide 12.5 MG TABLET PO (09:13)
[2023-03-09 11:38] LABS: Glucose, Whole Blood 259 mg/dL (60-115)
[2023-03-09 14:00] VITALS: BP 90/52; PULSE 67; RESP 18; TEMP 36.4
[2023-03-09 15:00] VITALS: BP 82/48
--- NOTE | 2023-03-09 15:04 | ECG_ITS ---
Test Reason : LOW BP Blood Pressure : / mmHG Vent. 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
[2023-03-09 15:35] LABS: Glucose, Whole Blood 104 mg/dL (60-115)
[2023-03-09 15:55] VITALS: BP 78/52; PULSE 60
[2023-03-09 16:17] LABS: Basophils Percent Auto 0.7 % (0-2); Imm Gran Abs Auto 0.01 X10*3/uL (0.00-0.03); Imm Gran Pct Auto 0.2 % (0.0-0.4); PLT CLUMP 1; SCAN SMEAR FLAG 1
[2023-03-09 16:19] LABS: Eosinophils Absolute Auto 0.3 X10*3/uL (0.0-0.4); Eosinophils Percent Auto 5.5 % (0-4); Hematocrit 40.4 % (42.0-52.0); Hemoglobin 13.8 g/dl (14.0-18.0); Lymphocytes Absolute Auto 0.9 X10*3/uL (1.2-4.9); Lymphocytes Percent Auto 14.6 % (20-40); Mean Corpuscular HGB Conc 34.2 g/dl (31.0-36.0); Mean Corpuscular Hemoglobin 31.8 pg (27.0-33.0); Mean Corpuscular Volume 93.1 fL (80.0-98.0); Mean Platelet Volume 11.4 fL (9.4-12.4); Monocytes Absolute Auto 0.7 X10*3/uL (0.1-1.2); Monocytes Percent Auto 12.2 % (2-11); Neutrophils Absolute Auto 3.9 x10*3/uL (2.0-8.3); Neutrophils Percent Auto 66.8 % (45-73); Red Blood Count 4.34 X10*6/uL (4.60-5.80); Red Cell Distribution Width 13.4 % (11.0-16.0)
[2023-03-09 16:26] LABS: Alanine Aminotransferase 20 U/L (0-40); Albumin Level 3.5 g/dL (3.5-5.0); Alkaline Phosphatase 82 U/L (39-117); Anion Gap 11 (12-20); Aspartate Amino Transferase 19 U/L (5-37); Bilirubin Direct 0.3 mg/dL (0.0-0.5); Bilirubin Total 0.9 mg/dL (0.0-1.0); Blood Urea Nitrogen 46 mg/dL (9-16); Calcium 8.8 mg/dL (8.4-10.2); Carbon Dioxide 31 mmol/L (22-29); Chloride 104 mmol/L (96-108); Creatinine Clr Calc Pharmacy 36.8; Estimated Glomerular Filt Rate 46; Glucose Random 77 mg/dL (60-115); Potassium 4.8 mmol/L (3.3-5.1); Sodium 141 mmol/L (135-145); Total Protein 5.3 g/dL (6.5-8.0)
[2023-03-09 16:30] LABS: White Blood Count 5.8 X10*3/uL (4.8-10.8)
[2023-03-09 16:31] LABS: MANUAL DIFF FLAG NO; Platelet Count 110 X10*3/uL (160-400)
[2023-03-09 16:33] LABS: Troponin-I High Sensitivity 18.7 ng/L (<3.5-35.0)
[2023-03-09 16:38] LABS: Glucose, Whole Blood 94 mg/dL (60-115)
--- NOTE | 2023-03-09 20:47 | PC.NURSE ---
Assumed care at 11 AM. patient confused, only oriented to self. Reported he wanted to go to the library (no identifiable library) and wanted to go to synagogue, repeatedly. He reports he attends [facility] ([place]). Fr. Carlisle of that [place] contacted and in to visit this patient with good effect. Patient's in with good effect. Patient compliant with meds, forgets to call and jumps up to walk and forgets walker and is unsteady (reports wanting to go to library or synagogue). Patient generally redirectable. Ate well. POC 259 at lunch, got 6 U lispro. BM on the commode. Patient was up in chair and had low BP: checked numerous times with electric and manual readings. My last two readings with manual cuff are 78/52 on the left arm, 82/48 on the right arm. His pulse is regular rate and rhythm in the 60's. He denied dizziness or other symptoms, but was confused. NAVAL AIRCREWMAN OPERATOR notified. Patient assisted back to bed, still denying any dizziness, and feet raised with head lowered. POC 104. Patient BP improved: In bed with feet up: Right arm 88/60, left arm 90/52. . . Heart sounds distant but no murmur heard. Nice 2+ radial pulses, faint pedal pulses. Nonpitting pedal edema. Still asymptomatic. NAVAL AIRCREW[employer] OPERATOR notified, holding evening doses of HcTz and lisinopril.
[2023-03-09 21:15] VITALS: BP 117/61; PULSE 105; RESP 18; TEMP 36.6; O2SAT 93
[2023-03-09 21:18] LABS: Glucose, Whole Blood 178 mg/dL (60-115)
--- NOTE | 2023-03-09 21:39 | PC.NURSE ---
This writter assumed care of this Pt at 1900. Pt A&O to self and year, denies any pain. Pt sitting up in bed watching TV. VSS. Meds given as documented. States I thought I was in the soup kitchen, they are too good to me here .
[2023-03-10 00:22] VITALS: BP 119/54; PULSE 79; RESP 16; TEMP 36.5; O2SAT 95
--- NOTE | 2023-03-10 03:28 | PC.NURSE ---
Assumed care of pt at 23:00. Pt is alert and oriented to self, very confused. Pt resting quietly in bed watching T.V. Pt denies any pain or discomfort. Commode at bedside for pt. Will continue to monitor.
[2023-03-10] MEDS: Omeprazole 20 MG CAPSULE.DR PO (06:02)
[2023-03-10 07:38] LABS: Glucose, Whole Blood 141 mg/dL (60-115)
[2023-03-10] MEDS: OLANZapine 2.5 MG TABLET PO ×2 (08:17→21:17)
[2023-03-10] MEDS: 0.9 % Sodium Chloride 1,000 ML 999 ML IVCONT (08:18)
--- NOTE | 2023-03-10 10:58 | PC.NURSE ---
Pt laying in hospital bed, alert to self, pleasant. Uses walker with ambulation, up to bedside commode without difficulty. Bp this am 146/21, HR 64, tolerated HCTZ. HTCZ given as prescribed/ within parameters to be given. Did not have IV access on start of shift, required 1liter bolus NS per orders placed. #20 IV placed to R hand/wrist without difficulty, working well without complications or discomfort. UA order placed, pending collection. See focused assessment for biophysical details. BEd placed in lowest postion, call sorensen within reach, will continue to monitor for changes/needs.
[2023-03-10 11:18] LABS: Glucose, Whole Blood 177 mg/dL (60-115)
[2023-03-10 11:30] VITALS: BP 131/58; PULSE 78; RESP 19; TEMP 36.5; O2SAT 97
[2023-03-10 11:48] LABS: Appearance Urine Clear; Color Urine Yellow; Glucose Urine UA Negative (Negative); Leukocyte Esterase Urine Large (3+) (Negative); Nitrite Urine Negative (Negative); UMIC TRIGGER UACC YES; Urine Blood Negative (Negative); Urine Ketones Negative (Negative); Urine Protein Negative (Neg-Trace)
[2023-03-10 11:54] LABS: Bacteria Urine None Seen (None Seen); Hyaline Casts Urine 0-2 /LPF (0-2); RBC Urine 0-2 /HPF (0-2); Squamous Epithelial Cell Urine 0-2 /HPF (0-2); UACC Culture Trigger YES; WBC Urine >50 /HPF (0-5)
[2023-03-10] MEDS: Insulin Lispro 100 UNIT/ML 3 ML VIAL SUBCUT ×3 (12:10→21:18)
[2023-03-10 13:56] VITALS: BP 135/60; PULSE 80; RESP 15; TEMP 36.6; O2SAT 98
--- NOTE | 2023-03-10 16:07 | ED.GENADULT ---
HPI - General Adult General Chief complaint: General Medical Stated complaint: section 12 Time Seen by Provider: 02/19/23 08:02 Source: patient and EMS Mode of arrival: EMS Limitations: no limitations Related Data Home Medications Medication Instructions Recorded Confirmed atorvastatin 80 mg tablet 80 mg PO BEDTIME 02/19/23 02/19/23 bupropion HCl 150 mg tablet,12 hr 150 mg PO DAILY 02/19/23 02/19/23 sustained-release chlorthalidone 25 mg tablet 12.5 mg PO DAILY 02/19/23 02/19/23 insulin aspart U-100 100 unit/mL 6 - 10 unit subcut TID 02/19/23 02/19/23 (3 mL) subcutaneous pen (Novolog FlexPen U-100 Insulin aspart) insulin detemir U-100 100 unit/mL 10 unit subcut BEDTIME 02/19/23 02/19/23 (3 mL) subcutaneous pen (Levemir FlexTouch U-100 Insulin) lisinopril 40 mg tablet 40 mg PO DAILY 02/19/23 02/19/23 metoprolol tartrate 50 mg tablet 50 mg PO BID 02/19/23 02/19/23 omeprazole 20 mg capsule,delayed 20 mg PO DAILY@0630 02/19/23 02/19/23 release terazosin 2 mg capsule 2 mg PO BEDTIME 02/19/23 02/19/23 Allergies Allergy/AdvReac Type Severity Reaction Status Date / Time No Known Allergies Allergy Verified 02/16/22 17:31 [facility] Social History Social History Advance Directives: Yes Advance Directives on File: Yes Advance Directives Date on File: 02/19/23 Physical Exam ED Vital Signs: Vital Signs - 24 hr 03/10/23 11:30 03/10/23 13:56 03/10/23 20:04 Temperature 97.7 F 97.8 F 98.1 F Pulse Rate 78 80 99 Respiratory Rate 19 15 17 Blood Pressure 131/58 L 135/60 137/91 H Pulse Oximetry 97 98 95 Oxygen Delivery Method Room Air Room Air Room Air 03/10/23 23:49 Temperature Pulse Rate Respiratory Rate 16 Blood Pressure Pulse Oximetry Oxygen Delivery Method BMI result Body Mass Index 29.9 Medications Administered Generic Name Dose Route Start Last Admin Trade Name Freq PRN Reason Stop Dose Admin Atorvastatin Calcium 80 mg 02/19/23 21:00 03/10/23 21:18 Atorvastatin Calcium 80 Mg Tablet PO 80 mg BEDTIME MISTY Administration Cefuroxime Axetil 500 mg 03/10/23 21:00 03/10/23 21:28 Cefuroxime Axetil 500 Mg Tablet PO 03/17/23 09:01 500 mg BID MISTY Administration Doxazosin Mesylate 2 mg 02/19/23 21:00 03/10/23 21:17 Doxazosin Mesylate 2 Mg Tablet PO 2 mg BEDTIME MISTY Administration Hydrochlorothiazide 12.5 mg 02/20/23 09:00 03/09/23 09:13 Hydrochlorothiazide 12.5 Mg Tablet PO 12.5 mg DAILY MISTY Administration Insulin Glargine 7 unit 02/19/23 21:00 03/10/23 21:18 Insulin Glargine,Hum.Rec.Anlog 100 Unit/Ml 10 Ml Vial SUBCUT 7 unit BEDTIME MISTY Administration Insulin Human Lispro 0 unit 02/19/23 21:00 03/10/23 21:18 Insulin Lispro 100 Unit/Ml 3 Ml Vial SUBCUT 2 unit QIDACHS [facility] Administration Protocol Lisinopril 40 mg 02/20/23 09:00 03/09/23 09:13 Lisinopril 40 Mg Tablet PO 40 mg DAILY MISTY Administration Protocol Olanzapine 2.5 mg 02/19/23 21:00 03/10/23 21:17 Olanzapine 2.5 Mg Tablet PO 2.5 mg BID MISTY Administration Omeprazole 20 mg 02/20/23 06:30 03/10/23 06:02 Omeprazole 20 Mg Capsule. PO 20 mg DAILY@0630 MISTY Administration Discontinued Medications Generic Name Dose Route Start Last Admin Trade Name Stephanie PRN Reason Stop Dose Admin Diphenhydramine HCl 25 mg 03/01/23 01:41 03/01/23 01:45 Diphenhydramine Hcl 25 Mg Capsule PO 03/01/23 01:42 25 mg ONCE ONE Administration Sodium Chloride 1,000 mls @ 999 mls/hr 02/21/23 08:15 02/21/23 11:00 Ns IV 02/21/23 09:15 Infused .Q1H1M MISTY Infusion Sodium Chloride 1,000 mls @ 999 mls/hr 03/10/23 07:45 03/10/23 09:08 Ns IVCONT 04/16/23 09:45 Not Given .Q1H1M MISTY Sodium Chloride 1,000 mls @ 999 mls/hr 03/10/23 07:57 03/10/23 10:10 Ns IVCONT 03/10/23 08:57 Infused .Q1H1M ONE Infusion Lorazepam 2 mg 02/21/23 01:23 02/21/23 01:57 Lorazepam 1 Mg Tablet PO 02/21/23 01:24 2 mg ONCE ONE Administration Lorazepam 0.5 mg 02/21/23 22:10 02/21/23 22:17 Lorazepam 2 Mg/Ml Vial IVPUSH 02/21/23 22:11 0.5 mg ONCE ONE Administration Lorazepam 2 mg 02/22/23 21:50 02/22/23 22:03 Lorazepam 1 Mg Tablet PO 02/22/23 21:51 2 mg ONCE ONE Administration Lorazepam 2 mg 02/26/23 04:51 02/26/23 04:45 Lorazepam 2 Mg/Ml Vial IM 02/26/23 04:52 2 mg STAT STA Administration Metoprolol Tartrate 50 mg 02/19/23 21:00 03/09/23 09:13 Metoprolol Tartrate 50 Mg Tablet PO 50 mg BID MISTY Administration Protocol Olanzapine 5 mg 03/01/23 01:41 03/01/23 01:45 Olanzapine 5 Mg Tablet PO 03/01/23 01:42 5 mg ONCE ONE Administration Olanzapine 5 mg 03/04/23 01:45 03/04/23 01:54 Olanzapine 5 Mg Tablet PO 03/04/23 01:46 5 mg ONCE ONE Administration Medical Decision Making Lab Data 03/09/23 16:07 03/09/23 16:07 Labs: Lab Results 02/19/23 02/19/23 02/19/23 Range/Units 08:25 08:25 08:25 WBC 5.6 (4.8-10.8) X10*3/uL RBC 4.90 (4.60-5.80) X10*6/uL Hgb 15.7 (14.0-18.0) g/dl Hct 45.5 (42.0-52.0) % MCV 92.9 (80.0-98.0) fL MCH 32.0 (27.0-33.0) pg MCHC 34.5 (31.0-36.0) g/dl RDW 13.4 (11.0-16.0) % Plt Count 97 L (160-400) X10*3/uL MPV 11.1 (9.4-12.4) fL Immature Gran % (Auto) 0.2 (0.0-0.4) % Neut % (Auto) 67.7 (45-73) % Lymph % (Auto) 15.8 L (20-40) % [place] % (Auto) 10.6 (2-11) % Eos % (Auto) 4.8 H (0-4) % Baso % (Auto) 0.9 (0-2) % Lymph # (Auto) 0.9 L (1.2-4.9) X10*3/uL [place] # (Auto) 0.6 (0.1-1.2) X10*3/uL Eos # (Auto) 0.3 (0.0-0.4) X10*3/uL Baso # (Auto) 0.1 (0.0-0.2) X10*3/uL Abs Immat Gran (auto) 0.01 (0.00-0.03) X10*3/uL Absolute Neuts (auto) 3.8 (2.0-8.3) x10*3/uL Absolute Nucleated RBC 0.000 (0.0-0.012) X10*3/uL Nucleated RBC % (auto) 0.0 (0.0-0.2) /100WBC Smear Tech's Comments Sodium 140 (135-145) mmol/L Potassium 3.6 (3.3-5.1) mmol/L Chloride 101 (96-108) mmol/L Carbon Dioxide 30 H (22-29) mmol/L Anion Gap 13 (12-20) BUN 16 (9-16) mg/dL Creatinine 1.36 (0.5-1.4) mg/dL Estim Creat Clear Calc 39.7 Estimated GFR 50 POC Glucose (60-115) mg/dL Random Glucose 154 H (60-115) mg/dL Lactic Acid (0.5-2.0) mmol/L Calcium 8.5 D (8.4-10.2) mg/dL Total Bilirubin 1.8 H (0.0-1.0) mg/dL Direct Bilirubin (0.0-0.5) mg/dL AST 37 (5-37) U/L ALT 32 (0-40) U/L Alkaline Phosphatase 89 (39-117) U/L Troponin I High Sens (<3.5-35.0) ng/L Total Protein 5.4 L (6.5-8.0) g/dL Albumin 3.7 (3.5-5.0) g/dL Urine Color Urine Appearance Urine pH (5.0-9.0) Ur Specific [place] (1.005-1.025) Urine Protein (Neg-Trace) mg/dL Urine Glucose (UA) (Negative) mg/dL Urine Ketones (Negative) mg/dL Urine Blood (Negative) Urine Nitrite (Negative) Ur Leukocyte Esterase (Negative) Urine RBC (0-2) /HPF Urine WBC (0-5) /HPF Ur Squamous Epith Cells (0-2) /HPF Urine Bacteria (None Seen) Hyaline Casts (0-2) /LPF COVID-19 (JOANN) Negative (Negative) COVID-19 Clin Com See Note 02/19/23 02/19/23 02/20/23 Range/Units 09:17 20:13 06:15 WBC (4.8-10.8) X10*3/uL RBC (4.60-5.80) X10*6/uL Hgb (14.0-18.0) g/dl Hct (42.0-52.0) % MCV (80.0-98.0) fL MCH (27.0-33.0) pg MCHC (31.0-36.0) g/dl RDW (11.0-16.0) % Plt Count (160-400) X10*3/uL MPV (9.4-12.4) fL Immature Gran % (Auto) (0.0-0.4) % Neut % (Auto) (45-73) % Lymph % (Auto) (20-40) % [place] % (Auto) (2-11) % Eos % (Auto) (0-4) % Baso % (Auto) (0-2) % Lymph # (Auto) (1.2-4.9) X10*3/uL [place] # (Auto) (0.1-1.2) X10*3/uL Eos # (Auto) (0.0-0.4) X10*3/uL Baso # (Auto) (0.0-0.2) X10*3/uL Abs Immat Gran (auto) (0.00-0.03) X10*3/uL Absolute Neuts (auto) (2.0-8.3) x10*3/uL Absolute Nucleated RBC (0.0-0.012) X10*3/uL Nucleated RBC % (auto) (0.0-0.2) /100WBC Smear Tech's Comments Sodium (135-145) mmol/L Potassium (3.3-5.1) mmol/L Chloride (96-108) mmol/L Carbon Dioxide (22-29) mmol/L Anion Gap (12-20) BUN (9-16) mg/dL Creatinine (0.5-1.4) mg/dL Estim Creat Clear Calc Estimated GFR POC Glucose 184 H 123 H (60-115) mg/dL Random Glucose (60-115) mg/dL Lactic Acid (0.5-2.0) mmol/L Calcium (8.4-10.2) mg/dL Total Bilirubin (0.0-1.0) mg/dL Direct Bilirubin (0.0-0.5) mg/dL AST (5-37) U/L ALT (0-40) U/L Alkaline Phosphatase (39-117) U/L Troponin I High Sens (<3.5-35.0) ng/L Total Protein (6.5-8.0) g/dL Albumin (3.5-5.0) g/dL Urine Color Yellow Urine Appearance Clear Urine pH 7.0 (5.0-9.0) Ur Specific [place] 1.010 (1.005-1.025) Urine Protein Negative (Neg-Trace) mg/dL Urine Glucose (UA) Negative (Negative) mg/dL Urine Ketones Negative (Negative) mg/dL Urine Blood Negative (Negative) Urine Nitrite Negative (Negative) Ur Leukocyte Esterase Negative (Negative) Urine RBC (0-2) /HPF Urine WBC (0-5) /HPF Ur Squamous Epith Cells (0-2) /HPF Urine Bacteria (None Seen) Hyaline Casts (0-2) /LPF COVID-19 (JOANN) (Negative) COVID-19 Clin Com 02/20/23 02/20/23 02/20/23 Range/Units 12:51 17:58 20:49 WBC (4.8-10.8) X10*3/uL RBC (4.60-5.80) X10*6/uL Hgb (14.0-18.0) g/dl Hct (42.0-52.0) % MCV (80.0-98.0) fL MCH (27.0-33.0) pg MCHC (31.0-36.0) g/dl RDW (11.0-16.0) % Plt Count (160-400) X10*3/uL MPV (9.4-12.4) fL Immature Gran % (Auto) (0.0-0.4) % Neut % (Auto) (45-73) % Lymph % (Auto) (20-40) % [place] % (Auto) (2-11) % Eos % (Auto) (0-4) % Baso % (Auto) (0-2) % Lymph # (Auto) (1.2-4.9) X10*3/uL [place] # (Auto) (0.1-1.2) X10*3/uL Eos # (Auto) (0.0-0.4) X10*3/uL Baso # (Auto) (0.0-0.2) X10*3/uL Abs Immat Gran (auto) (0.00-0.03) X10*3/uL Absolute Neuts (auto) (2.0-8.3) x10*3/uL Absolute Nucleated RBC (0.0-0.012) X10*3/uL Nucleated RBC % (auto) (0.0-0.2) /100WBC Smear Tech's Comments Sodium (135-145) mmol/L Potassium (3.3-5.1) mmol/L Chloride (96-108) mmol/L Carbon Dioxide (22-29) mmol/L Anion Gap (12-20) BUN (9-16) mg/dL Creatinine (0.5-1.4) mg/dL Estim Creat Clear Calc Estimated GFR POC Glucose 150 H 159 H 143 H (60-115) mg/dL Random Glucose (60-115) mg/dL Lactic Acid (0.5-2.0) mmol/L Calcium (8.4-10.2) mg/dL Total Bilirubin (0.0-1.0) mg/dL Direct Bilirubin (0.0-0.5) mg/dL AST (5-37) U/L ALT (0-40) U/L Alkaline Phosphatase (39-117) U/L Troponin I High Sens (<3.5-35.0) ng/L Total Protein (6.5-8.0) g/dL Albumin (3.5-5.0) g/dL Urine Color Urine Appearance Urine pH (5.0-9.0) Ur Specific [place] (1.005-1.025) Urine Protein (Neg-Trace) mg/dL Urine Glucose (UA) (Negative) mg/dL Urine Ketones (Negative) mg/dL Urine Blood (Negative) Urine Nitrite (Negative) Ur Leukocyte Esterase (Negative) Urine RBC (0-2) /HPF Urine WBC (0-5) /HPF Ur Squamous Epith Cells (0-2) /HPF Urine Bacteria (None Seen) Hyaline Casts (0-2) /LPF COVID-19 (JOANN) (Negative) COVID-19 Clin Com 02/21/23 02/21/23 02/21/23 Range/Units 02:42 03:24 06:29 WBC (4.8-10.8) X10*3/uL RBC (4.60-5.80) X10*6/uL Hgb (14.0-18.0) g/dl Hct (42.0-52.0) % MCV (80.0-98.0) fL MCH (27.0-33.0) pg MCHC (31.0-36.0) g/dl RDW (11.0-16.0) % Plt Count (160-400) X10*3/uL MPV (9.4-12.4) fL Immature Gran % (Auto) (0.0-0.4) % Neut % (Auto) (45-73) % Lymph % (Auto) (20-40) % [place] % (Auto) (2-11) % Eos % (Auto) (0-4) % Baso % (Auto) (0-2) % Lymph # (Auto) (1.2-4.9) X10*3/uL [place] # (Auto) (0.1-1.2) X10*3/uL Eos # (Auto) (0.0-0.4) X10*3/uL Baso # (Auto) (0.0-0.2) X10*3/uL Abs Immat Gran (auto) (0.00-0.03) X10*3/uL Absolute Neuts (auto) (2.0-8.3) x10*3/uL Absolute Nucleated RBC (0.0-0.012) X10*3/uL Nucleated RBC % (auto) (0.0-0.2) /100WBC Smear Tech's Comments Sodium (135-145) mmol/L Potassium (3.3-5.1) mmol/L Chloride (96-108) mmol/L Carbon Dioxide (22-29) mmol/L Anion Gap (12-20) BUN (9-16) mg/dL Creatinine (0.5-1.4) mg/dL Estim Creat Clear Calc Estimated GFR POC Glucose 195 H (60-115) mg/dL Random Glucose (60-115) mg/dL Lactic Acid (0.5-2.0) mmol/L Calcium (8.4-10.2) mg/dL Total Bilirubin (0.0-1.0) mg/dL Direct Bilirubin (0.0-0.5) mg/dL AST (5-37) U/L ALT (0-40) U/L Alkaline Phosphatase (39-117) U/L Troponin I High Sens 19.5 17.7 (<3.5-35.0) ng/L Total Protein (6.5-8.0) g/dL Albumin (3.5-5.0) g/dL Urine Color Urine Appearance Urine pH (5.0-9.0) Ur Specific [place] (1.005-1.025) Urine Protein (Neg-Trace) mg/dL Urine Glucose (UA) (Negative) mg/dL Urine Ketones (Negative) mg/dL Urine Blood (Negative) Urine Nitrite (Negative) Ur Leukocyte Esterase (Negative) Urine RBC (0-2) /HPF Urine WBC (0-5) /HPF Ur Squamous Epith Cells (0-2) /HPF Urine Bacteria (None Seen) Hyaline Casts (0-2) /LPF COVID-19 (JOANN) (Negative) COVID-19 Clin Com 02/21/23 02/21/23 02/21/23 Range/Units 07:04 08:36 08:36 WBC 5.2 (4.8-10.8) X10*3/uL RBC 4.87 (4.60-5.80) X10*6/uL Hgb 15.4 (14.0-18.0) g/dl Hct 45.2 (42.0-52.0) % MCV 92.8 (80.0-98.0) fL MCH 31.6 (27.0-33.0) pg MCHC 34.1 (31.0-36.0) g/dl RDW 13.3 (11.0-16.0) % Plt Count 83 L (160-400) X10*3/uL MPV 10.7 (9.4-12.4) fL Immature Gran % (Auto) 0.2 (0.0-0.4) % Neut % (Auto) 74.9 H (45-73) % Lymph % (Auto) 11.6 L (20-40) % [place] % (Auto) 9.8 (2-11) % Eos % (Auto) 2.9 (0-4) % Baso % (Auto) 0.6 (0-2) % Lymph # (Auto) 0.6 L (1.2-4.9) X10*3/uL [place] # (Auto) 0.5 (0.1-1.2) X10*3/uL Eos # (Auto) 0.2 (0.0-0.4) X10*3/uL Baso # (Auto) 0.0 (0.0-0.2) X10*3/uL Abs Immat Gran (auto) 0.01 (0.00-0.03) X10*3/uL Absolute Neuts (auto) 3.9 (2.0-8.3) x10*3/uL Absolute Nucleated RBC 0.000 (0.0-0.012) X10*3/uL Nucleated RBC % (auto) 0.0 (0.0-0.2) /100WBC Smear Tech's Comments Sodium 137 (135-145) mmol/L Potassium 4.0 (3.3-5.1) mmol/L Chloride 102 (96-108) mmol/L Carbon Dioxide 28 (22-29) mmol/L Anion Gap 11 L (12-20) BUN 18 H (9-16) mg/dL Creatinine 1.16 (0.5-1.4) mg/dL Estim Creat Clear Calc 46.6 Estimated GFR 60 POC Glucose 148 H (60-115) mg/dL Random Glucose 158 H (60-115) mg/dL Lactic Acid (0.5-2.0) mmol/L Calcium 8.5 (8.4-10.2) mg/dL Total Bilirubin (0.0-1.0) mg/dL Direct Bilirubin (0.0-0.5) mg/dL AST (5-37) U/L ALT (0-40) U/L Alkaline Phosphatase (39-117) U/L Troponin I High Sens (<3.5-35.0) ng/L Total Protein (6.5-8.0) g/dL Albumin (3.5-5.0) g/dL Urine Color Urine Appearance Urine pH (5.0-9.0) Ur Specific [place] (1.005-1.025) Urine Protein (Neg-Trace) mg/dL Urine Glucose (UA) (Negative) mg/dL Urine Ketones (Negative) mg/dL Urine Blood (Negative) Urine Nitrite (Negative) Ur Leukocyte Esterase (Negative) Urine RBC (0-2) /HPF Urine WBC (0-5) /HPF Ur Squamous Epith Cells (0-2) /HPF Urine Bacteria (None Seen) Hyaline Casts (0-2) /LPF COVID-19 (JONAN) (Negative) COVID-19 Clin Com 02/21/23 02/21/23 02/21/23 Range/Units 08:36 08:36 09:42 WBC (4.8-10.8) X10*3/uL RBC (4.60-5.80) X10*6/uL Hgb (14.0-18.0) g/dl Hct (42.0-52.0) % MCV (80.0-98.0) fL MCH (27.0-33.0) pg MCHC (31.0-36.0) g/dl RDW (11.0-16.0) % Plt Count (160-400) X10*3/uL MPV (9.4-12.4) fL Immature Gran % (Auto) (0.0-0.4) % Neut % (Auto) (45-73) % Lymph % (Auto) (20-40) % [place] % (Auto) (2-11) % Eos % (Auto) (0-4) % Baso % (Auto) (0-2) % Lymph # (Auto) (1.2-4.9) X10*3/uL [place] # (Auto) (0.1-1.2) X10*3/uL Eos # (Auto) (0.0-0.4) X10*3/uL Baso # (Auto) (0.0-0.2) X10*3/uL Abs Immat Gran (auto) (0.00-0.03) X10*3/uL Absolute Neuts (auto) (2.0-8.3) x10*3/uL Absolute Nucleated RBC (0.0-0.012) X10*3/uL Nucleated RBC % (auto) (0.0-0.2) /100WBC Smear Tech's Comments Sodium (135-145) mmol/L Potassium (3.3-5.1) mmol/L Chloride (96-108) mmol/L Carbon Dioxide (22-29) mmol/L Anion Gap (12-20) BUN (9-16) mg/dL Creatinine (0.5-1.4) mg/dL Estim Creat Clear Calc Estimated GFR POC Glucose (60-115) mg/dL Random Glucose (60-115) mg/dL Lactic Acid 1.6 (0.5-2.0) mmol/L Calcium (8.4-10.2) mg/dL Total Bilirubin (0.0-1.0) mg/dL Direct Bilirubin (0.0-0.5) mg/dL AST (5-37) U/L ALT (0-40) U/L Alkaline Phosphatase (39-117) U/L Troponin I High Sens 18.4 (<3.5-35.0) ng/L Total Protein (6.5-8.0) g/dL Albumin (3.5-5.0) g/dL Urine Color Yellow Urine Appearance Clear Urine pH 7.0 (5.0-9.0) Ur Specific [place] 1.015 (1.005-1.025) Urine Protein Negative (Neg-Trace) mg/dL Urine Glucose (UA) Negative (Negative) mg/dL Urine Ketones Negative (Negative) mg/dL Urine Blood Trace H (Negative) Urine Nitrite Negative (Negative) Ur Leukocyte Esterase Negative (Negative) Urine RBC 3-5 H (0-2) /HPF Urine WBC 0-5 (0-5) /HPF Ur Squamous Epith Cells 0-2 (0-2) /HPF Urine Bacteria None Seen (None Seen) Hyaline Casts 3-5 (0-2) /LPF COVID-19 (JOANN) (Negative) COVID-19 Clin Com 02/21/23 02/21/23 02/21/23 Range/Units 13:10 18:39 21:40 WBC (4.8-10.8) X10*3/uL RBC (4.60-5.80) X10*6/uL Hgb (14.0-18.0) g/dl Hct (42.0-52.0) % MCV (80.0-98.0) fL MCH (27.0-33.0) pg MCHC (31.0-36.0) g/dl RDW (11.0-16.0) % Plt Count (160-400) X10*3/uL MPV (9.4-12.4) fL Immature Gran % (Auto) (0.0-0.4) % Neut % (Auto) (45-73) % Lymph % (Auto) (20-40) % [place] % (Auto) (2-11) % Eos % (Auto) (0-4) % Baso % (Auto) (0-2) % Lymph # (Auto) (1.2-4.9) X10*3/uL [place] # (Auto) (0.1-1.2) X10*3/uL Eos # (Auto) (0.0-0.4) X10*3/uL Baso # (Auto) (0.0-0.2) X10*3/uL Abs Immat Gran (auto) (0.00-0.03) X10*3/uL Absolute Neuts (auto) (2.0-8.3) x10*3/uL Absolute Nucleated RBC (0.0-0.012) X10*3/uL Nucleated RBC % (auto) (0.0-0.2) /100WBC Smear Tech's Comments Sodium (135-145) mmol/L Potassium (3.3-5.1) mmol/L Chloride (96-108) mmol/L Carbon Dioxide (22-29) mmol/L Anion Gap (12-20) BUN (9-16) mg/dL Creatinine (0.5-1.4) mg/dL Estim Creat Clear Calc Estimated GFR POC Glucose 148 H 164 H 163 H (60-115) mg/dL Random Glucose (60-115) mg/dL Lactic Acid (0.5-2.0) mmol/L Calcium (8.4-10.2) mg/dL Total Bilirubin (0.0-1.0) mg/dL Direct Bilirubin (0.0-0.5) mg/dL AST (5-37) U/L ALT (0-40) U/L Alkaline Phosphatase (39-117) U/L Troponin I High Sens (<3.5-35.0) ng/L Total Protein (6.5-8.0) g/dL Albumin (3.5-5.0) g/dL Urine Color Urine Appearance Urine pH (5.0-9.0) Ur Specific [place] (1.005-1.025) Urine Protein (Neg-Trace) mg/dL Urine Glucose (UA) (Negative) mg/dL Urine Ketones (Negative) mg/dL Urine Blood (Negative) Urine Nitrite (Negative) Ur Leukocyte Esterase (Negative) Urine RBC (0-2) /HPF Urine WBC (0-5) /HPF Ur Squamous Epith Cells (0-2) /HPF Urine Bacteria (None Seen) Hyaline Casts (0-2) /LPF COVID-19 (JOANN) (Negative) COVID-19 Clin Com 02/22/23 02/22/23 02/22/23 Range/Units 09:12 13:51 17:51 WBC (4.8-10.8) X10*3/uL RBC (4.60-5.80) X10*6/uL Hgb (14.0-18.0) g/dl Hct (42.0-52.0) % MCV (80.0-98.0) fL MCH (27.0-33.0) pg MCHC (31.0-36.0) g/dl RDW (11.0-16.0) % Plt Count (160-400) X10*3/uL MPV (9.4-12.4) fL Immature Gran % (Auto) (0.0-0.4) % Neut % (Auto) (45-73) % Lymph % (Auto) (20-40) % [place] % (Auto) (2-11) % Eos % (Auto) (0-4) % Baso % (Auto) (0-2) % Lymph # (Auto) (1.2-4.9) X10*3/uL [place] # (Auto) (0.1-1.2) X10*3/uL Eos # (Auto) (0.0-0.4) X10*3/uL Baso # (Auto) (0.0-0.2) X10*3/uL Abs Immat Gran (auto) (0.00-0.03) X10*3/uL Absolute Neuts (auto) (2.0-8.3) x10*3/uL Absolute Nucleated RBC (0.0-0.012) X10*3/uL Nucleated RBC % (auto) (0.0-0.2) /100WBC Smear Tech's Comments Sodium (135-145) mmol/L Potassium (3.3-5.1) mmol/L Chloride (96-108) mmol/L Carbon Dioxide (22-29) mmol/L Anion Gap (12-20) BUN (9-16) mg/dL Creatinine (0.5-1.4) mg/dL Estim Creat Clear Calc Estimated GFR POC Glucose 136 H 113 182 H (60-115) mg/dL Random Glucose (60-115) mg/dL Lactic Acid (0.5-2.0) mmol/L Calcium (8.4-10.2) mg/dL Total Bilirubin (0.0-1.0) mg/dL Direct Bilirubin (0.0-0.5) mg/dL AST (5-37) U/L ALT (0-40) U/L Alkaline Phosphatase (39-117) U/L Troponin I High Sens (<3.5-35.0) ng/L Total Protein (6.5-8.0) g/dL Albumin (3.5-5.0) g/dL Urine Color Urine Appearance Urine pH (5.0-9.0) Ur Specific [place] (1.005-1.025) Urine Protein (Neg-Trace) mg/dL Urine Glucose (UA) (Negative) mg/dL Urine Ketones (Negative) mg/dL Urine Blood (Negative) Urine Nitrite (Negative) Ur Leukocyte Esterase (Negative) Urine RBC (0-2) /HPF Urine WBC (0-5) /HPF Ur Squamous Epith Cells (0-2) /HPF Urine Bacteria (None Seen) Hyaline Casts (0-2) /LPF COVID-19 (JOANN) (Negative) COVID-19 Clin Com 02/22/23 02/23/23 02/23/23 Range/Units 20:07 08:55 13:25 WBC (4.8-10.8) X10*3/uL RBC (4.60-5.80) X10*6/uL Hgb (14.0-18.0) g/dl Hct (42.0-52.0) % MCV (80.0-98.0) fL MCH (27.0-33.0) pg MCHC (31.0-36.0) g/dl RDW (11.0-16.0) % Plt Count (160-400) X10*3/uL MPV (9.4-12.4) fL Immature Gran % (Auto) (0.0-0.4) % Neut % (Auto) (45-73) % Lymph % (Auto) (20-40) % [place] % (Auto) (2-11) % Eos % (Auto) (0-4) % Baso % (Auto) (0-2) % Lymph # (Auto) (1.2-4.9) X10*3/uL [place] # (Auto) (0.1-1.2) X10*3/uL Eos # (Auto) (0.0-0.4) X10*3/uL Baso # (Auto) (0.0-0.2) X10*3/uL Abs Immat Gran (auto) (0.00-0.03) X10*3/uL Absolute Neuts (auto) (2.0-8.3) x10*3/uL Absolute Nucleated RBC (0.0-0.012) X10*3/uL Nucleated RBC % (auto) (0.0-0.2) /100WBC Smear Tech's Comments Sodium (135-145) mmol/L Potassium (3.3-5.1) mmol/L Chloride (96-108) mmol/L Carbon Dioxide (22-29) mmol/L Anion Gap (12-20) BUN (9-16) mg/dL Creatinine (0.5-1.4) mg/dL Estim Creat Clear Calc Estimated GFR POC Glucose 174 H 140 H 254 H (60-115) mg/dL Random Glucose (60-115) mg/dL Lactic Acid (0.5-2.0) mmol/L Calcium (8.4-10.2) mg/dL Total Bilirubin (0.0-1.0) mg/dL Direct Bilirubin (0.0-0.5) mg/dL AST (5-37) U/L ALT (0-40) U/L Alkaline Phosphatase (39-117) U/L Troponin I High Sens (<3.5-35.0) ng/L Total Protein (6.5-8.0) g/dL Albumin (3.5-5.0) g/dL Urine Color Urine Appearance Urine pH (5.0-9.0) Ur Specific [place] (1.005-1.025) Urine Protein (Neg-Trace) mg/dL Urine Glucose (UA) (Negative) mg/dL Urine Ketones (Negative) mg/dL Urine Blood (Negative) Urine Nitrite (Negative) Ur Leukocyte Esterase (Negative) Urine RBC (0-2) /HPF Urine WBC (0-5) /HPF Ur Squamous Epith Cells (0-2) /HPF Urine Bacteria (None Seen) Hyaline Casts (0-2) /LPF COVID-19 (JOANN) (Negative) COVID-19 Clin Com 02/23/23 02/23/23 02/23/23 Range/Units 18:33 20:47 22:04 WBC (4.8-10.8) X10*3/uL RBC (4.60-5.80) X10*6/uL Hgb (14.0-18.0) g/dl Hct (42.0-52.0) % MCV (80.0-98.0) fL MCH (27.0-33.0) pg MCHC (31.0-36.0) g/dl RDW (11.0-16.0) % Plt Count (160-400) X10*3/uL MPV (9.4-12.4) fL Immature Gran % (Auto) (0.0-0.4) % Neut % (Auto) (45-73) % Lymph % (Auto) (20-40) % [place] % (Auto) (2-11) % Eos % (Auto) (0-4) % Baso % (Auto) (0-2) % Lymph # (Auto) (1.2-4.9) X10*3/uL [place] # (Auto) (0.1-1.2) X10*3/uL Eos # (Auto) (0.0-0.4) X10*3/uL Baso # (Auto) (0.0-0.2) X10*3/uL Abs Immat Gran (auto) (0.00-0.03) X10*3/uL Absolute Neuts (auto) (2.0-8.3) x10*3/uL Absolute Nucleated RBC (0.0-0.012) X10*3/uL Nucleated RBC % (auto) (0.0-0.2) /100WBC Smear Tech's Comments Sodium (135-145) mmol/L Potassium (3.3-5.1) mmol/L Chloride (96-108) mmol/L Carbon Dioxide (22-29) mmol/L Anion Gap (12-20) BUN (9-16) mg/dL Creatinine (0.5-1.4) mg/dL Estim Creat Clear Calc Estimated GFR POC Glucose 146 H 250 H 255 H (60-115) mg/dL Random Glucose (60-115) mg/dL Lactic Acid (0.5-2.0) mmol/L Calcium (8.4-10.2) mg/dL Total Bilirubin (0.0-1.0) mg/dL Direct Bilirubin (0.0-0.5) mg/dL AST (5-37) U/L ALT (0-40) U/L Alkaline Phosphatase (39-117) U/L Troponin I High Sens (<3.5-35.0) ng/L Total Protein (6.5-8.0) g/dL Albumin (3.5-5.0) g/dL Urine Color Urine Appearance Urine pH (5.0-9.0) Ur Specific [place] (1.005-1.025) Urine Protein (Neg-Trace) mg/dL Urine Glucose (UA) (Negative) mg/dL Urine Ketones (Negative) mg/dL Urine Blood (Negative) Urine Nitrite (Negative) Ur Leukocyte Esterase (Negative) Urine RBC (0-2) /HPF Urine WBC (0-5) /HPF Ur Squamous Epith Cells (0-2) /HPF Urine Bacteria (None Seen) Hyaline Casts (0-2) /LPF COVID-19 (JOANN) (Negative) COVID-19 Clin Com 02/24/23 02/24/23 02/24/23 Range/Units 07:39 14:01 22:19 WBC (4.8-10.8) X10*3/uL RBC (4.60-5.80) X10*6/uL Hgb (14.0-18.0) g/dl Hct (42.0-52.0) % MCV (80.0-98.0) fL MCH (27.0-33.0) pg MCHC (31.0-36.0) g/dl RDW (11.0-16.0) % Plt Count (160-400) X10*3/uL MPV (9.4-12.4) fL Immature Gran % (Auto) (0.0-0.4) % Neut % (Auto) (45-73) % Lymph % (Auto) (20-40) % [place] % (Auto) (2-11) % Eos % (Auto) (0-4) % Baso % (Auto) (0-2) % Lymph # (Auto) (1.2-4.9) X10*3/uL [place] # (Auto) (0.1-1.2) X10*3/uL Eos # (Auto) (0.0-0.4) X10*3/uL Baso # (Auto) (0.0-0.2) X10*3/uL Abs Immat Gran (auto) (0.00-0.03) X10*3/uL Absolute Neuts (auto) (2.0-8.3) x10*3/uL Absolute Nucleated RBC (0.0-0.012) X10*3/uL Nucleated RBC % (auto) (0.0-0.2) /100WBC Smear Tech's Comments Sodium (135-145) mmol/L Potassium (3.3-5.1) mmol/L Chloride (96-108) mmol/L Carbon Dioxide (22-29) mmol/L Anion Gap (12-20) BUN (9-16) mg/dL Creatinine (0.5-1.4) mg/dL Estim Creat Clear Calc Estimated GFR POC Glucose 195 H 169 H 241 H (60-115) mg/dL Random Glucose (60-115) mg/dL Lactic Acid (0.5-2.0) mmol/L Calcium (8.4-10.2) mg/dL Total Bilirubin (0.0-1.0) mg/dL Direct Bilirubin (0.0-0.5) mg/dL AST (5-37) U/L ALT (0-40) U/L Alkaline Phosphatase (39-117) U/L Troponin I High Sens (<3.5-35.0) ng/L Total Protein (6.5-8.0) g/dL Albumin (3.5-5.0) g/dL Urine Color Urine Appearance Urine pH (5.0-9.0) Ur Specific [place] (1.005-1.025) Urine Protein (Neg-Trace) mg/dL Urine Glucose (UA) (Negative) mg/dL Urine Ketones (Negative) mg/dL Urine Blood (Negative) Urine Nitrite (Negative) Ur Leukocyte Esterase (Negative) Urine RBC (0-2) /HPF Urine WBC (0-5) /HPF Ur Squamous Epith Cells (0-2) /HPF Urine Bacteria (None Seen) Hyaline Casts (0-2) /LPF COVID-19 (JOANN) (Negative) COVID-19 Clin Com 02/25/23 02/25/23 02/25/23 Range/Units 07:55 12:33 17:41 WBC (4.8-10.8) X10*3/uL RBC (4.60-5.80) X10*6/uL Hgb (14.0-18.0) g/dl Hct (42.0-52.0) % MCV (80.0-98.0) fL MCH (27.0-33.0) pg MCHC (31.0-36.0) g/dl RDW (11.0-16.0) % Plt Count (160-400) X10*3/uL MPV (9.4-12.4) fL Immature Gran % (Auto) (0.0-0.4) % Neut % (Auto) (45-73) % Lymph % (Auto) (20-40) % [place] % (Auto) (2-11) % Eos % (Auto) (0-4) % Baso % (Auto) (0-2) % Lymph # (Auto) (1.2-4.9) X10*3/uL [place] # (Auto) (0.1-1.2) X10*3/uL Eos # (Auto) (0.0-0.4) X10*3/uL Baso # (Auto) (0.0-0.2) X10*3/uL Abs Immat Gran (auto) (0.00-0.03) X10*3/uL Absolute Neuts (auto) (2.0-8.3) x10*3/uL Absolute Nucleated RBC (0.0-0.012) X10*3/uL Nucleated RBC % (auto) (0.0-0.2) /100WBC Smear Tech's Comments Sodium (135-145) mmol/L Potassium (3.3-5.1) mmol/L Chloride (96-108) mmol/L Carbon Dioxide (22-29) mmol/L Anion Gap (12-20) BUN (9-16) mg/dL Creatinine (0.5-1.4) mg/dL Estim Creat Clear Calc Estimated GFR POC Glucose 158 H 218 H 275 H (60-115) mg/dL Random Glucose (60-115) mg/dL Lactic Acid (0.5-2.0) mmol/L Calcium (8.4-10.2) mg/dL Total Bilirubin (0.0-1.0) mg/dL Direct Bilirubin (0.0-0.5) mg/dL AST (5-37) U/L ALT (0-40) U/L Alkaline Phosphatase (39-117) U/L Troponin I High Sens (<3.5-35.0) ng/L Total Protein (6.5-8.0) g/dL Albumin (3.5-5.0) g/dL Urine Color Urine Appearance Urine pH (5.0-9.0) Ur Specific [place] (1.005-1.025) Urine Protein (Neg-Trace) mg/dL Urine Glucose (UA) (Negative) mg/dL Urine Ketones (Negative) mg/dL Urine Blood (Negative) Urine Nitrite (Negative) Ur Leukocyte Esterase (Negative) Urine RBC (0-2) /HPF Urine WBC (0-5) /HPF Ur Squamous Epith Cells (0-2) /HPF Urine Bacteria (None Seen) Hyaline Casts (0-2) /LPF COVID-19 (JOANN) (Negative) COVID-19 Clin Com 02/25/23 02/26/23 02/26/23 Range/Units 20:28 07:24 12:36 WBC (4.8-10.8) X10*3/uL RBC (4.60-5.80) X10*6/uL Hgb (14.0-18.0) g/dl Hct (42.0-52.0) % MCV (80.0-98.0) fL MCH (27.0-33.0) pg MCHC (31.0-36.0) g/dl RDW (11.0-16.0) % Plt Count (160-400) X10*3/uL MPV (9.4-12.4) fL Immature Gran % (Auto) (0.0-0.4) % Neut % (Auto) (45-73) % Lymph % (Auto) (20-40) % [place] % (Auto) (2-11) % Eos % (Auto) (0-4) % Baso % (Auto) (0-2) % Lymph # (Auto) (1.2-4.9) X10*3/uL [place] # (Auto) (0.1-1.2) X10*3/uL Eos # (Auto) (0.0-0.4) X10*3/uL Baso # (Auto) (0.0-0.2) X10*3/uL Abs Immat Gran (auto) (0.00-0.03) X10*3/uL Absolute Neuts (auto) (2.0-8.3) x10*3/uL Absolute Nucleated RBC (0.0-0.012) X10*3/uL Nucleated RBC % (auto) (0.0-0.2) /100WBC Smear Tech's Comments Sodium (135-145) mmol/L Potassium (3.3-5.1) mmol/L Chloride (96-108) mmol/L Carbon Dioxide (22-29) mmol/L Anion Gap (12-20) BUN (9-16) mg/dL Creatinine (0.5-1.4) mg/dL Estim Creat Clear Calc Estimated GFR POC Glucose 239 H 214 H 254 H (60-115) mg/dL Random Glucose (60-115) mg/dL Lactic Acid (0.5-2.0) mmol/L Calcium (8.4-10.2) mg/dL Total Bilirubin (0.0-1.0) mg/dL Direct Bilirubin (0.0-0.5) mg/dL AST (5-37) U/L ALT (0-40) U/L Alkaline Phosphatase (39-117) U/L Troponin I High Sens (<3.5-35.0) ng/L Total Protein (6.5-8.0) g/dL Albumin (3.5-5.0) g/dL Urine Color Urine Appearance Urine pH (5.0-9.0) Ur Specific [place] (1.005-1.025) Urine Protein (Neg-Trace) mg/dL Urine Glucose (UA) (Negative) mg/dL Urine Ketones (Negative) mg/dL Urine Blood (Negative) Urine Nitrite (Negative) Ur Leukocyte Esterase (Negative) Urine RBC (0-2) /HPF Urine WBC (0-5) /HPF Ur Squamous Epith Cells (0-2) /HPF Urine Bacteria (None Seen) Hyaline Casts (0-2) /LPF COVID-19 (JOANN) (Negative) COVID-19 Clin Com 02/26/23 02/26/2323 Range/Units 17:12 23:54 08:26 WBC (4.8-10.8) X10*3/uL RBC (4.60-5.80) X10*6/uL Hgb (14.0-18.0) g/dl Hct (42.0-52.0) % MCV (80.0-98.0) fL MCH (27.0-33.0) pg MCHC (31.0-36.0) g/dl RDW (11.0-16.0) % Plt Count (160-400) X10*3/uL MPV (9.4-12.4) fL Immature Gran % (Auto) (0.0-0.4) % Neut % (Auto) (45-73) % Lymph % (Auto) (20-40) % [place] % (Auto) (2-11) % Eos % (Auto) (0-4) % Baso % (Auto) (0-2) % Lymph # (Auto) (1.2-4.9) X10*3/uL [place] # (Auto) (0.1-1.2) X10*3/uL Eos # (Auto) (0.0-0.4) X10*3/uL Baso # (Auto) (0.0-0.2) X10*3/uL Abs Immat Gran (auto) (0.00-0.03) X10*3/uL Absolute Neuts (auto) (2.0-8.3) x10*3/uL Absolute Nucleated RBC (0.0-0.012) X10*3/uL Nucleated RBC % (auto) (0.0-0.2) /100WBC Smear Tech's Comments Sodium (135-145) mmol/L Potassium (3.3-5.1) mmol/L Chloride (96-108) mmol/L Carbon Dioxide (22-29) mmol/L Anion Gap (12-20) BUN (9-16) mg/dL Creatinine (0.5-1.4) mg/dL Estim Creat Clear Calc Estimated GFR POC Glucose 174 H 211 H 134 H (60-115) mg/dL Random Glucose (60-115) mg/dL Lactic Acid (0.5-2.0) mmol/L Calcium (8.4-10.2) mg/dL Total Bilirubin (0.0-1.0) mg/dL Direct Bilirubin (0.0-0.5) mg/dL AST (5-37) U/L ALT (0-40) U/L Alkaline Phosphatase (39-117) U/L Troponin I High Sens (<3.5-35.0) ng/L Total Protein (6.5-8.0) g/dL Albumin (3.5-5.0) g/dL Urine Color Urine Appearance Urine pH (5.0-9.0) Ur Specific [place] (1.005-1.025) Urine Protein (Neg-Trace) mg/dL Urine Glucose (UA) (Negative) mg/dL Urine Ketones (Negative) mg/dL Urine Blood (Negative) Urine Nitrite (Negative) Ur Leukocyte Esterase (Negative) Urine RBC (0-2) /HPF Urine WBC (0-5) /HPF Ur Squamous Epith Cells (0-2) /HPF Urine Bacteria (None Seen) Hyaline Casts (0-2) /LPF COVID-19 (JOANN) (Negative) COVID-19 Clin Com 02/27/23 02/27/23 02/27/23 Range/Units 12:43 19:14 22:10 WBC (4.8-10.8) X10*3/uL RBC (4.60-5.80) X10*6/uL Hgb (14.0-18.0) g/dl Hct (42.0-52.0) % MCV (80.0-98.0) fL MCH (27.0-33.0) pg MCHC (31.0-36.0) g/dl RDW (11.0-16.0) % Plt Count (160-400) X10*3/uL MPV (9.4-12.4) fL Immature Gran % (Auto) (0.0-0.4) % Neut % (Auto) (45-73) % Lymph % (Auto) (20-40) % [place] % (Auto) (2-11) % Eos % (Auto) (0-4) % Baso % (Auto) (0-2) % Lymph # (Auto) (1.2-4.9) X10*3/uL [place] # (Auto) (0.1-1.2) X10*3/uL Eos # (Auto) (0.0-0.4) X10*3/uL Baso # (Auto) (0.0-0.2) X10*3/uL Abs Immat Gran (auto) (0.00-0.03) X10*3/uL Absolute Neuts (auto) (2.0-8.3) x10*3/uL Absolute Nucleated RBC (0.0-0.012) X10*3/uL Nucleated RBC % (auto) (0.0-0.2) /100WBC Smear Tech's Comments Sodium (135-145) mmol/L Potassium (3.3-5.1) mmol/L Chloride (96-108) mmol/L Carbon Dioxide (22-29) mmol/L Anion Gap (12-20) BUN (9-16) mg/dL Creatinine (0.5-1.4) mg/dL Estim Creat Clear Calc Estimated GFR POC Glucose 139 H 183 H 199 H (60-115) mg/dL Random Glucose (60-115) mg/dL Lactic Acid (0.5-2.0) mmol/L Calcium (8.4-10.2) mg/dL Total Bilirubin (0.0-1.0) mg/dL Direct Bilirubin (0.0-0.5) mg/dL AST (5-37) U/L ALT (0-40) U/L Alkaline Phosphatase (39-117) U/L Troponin I High Sens (<3.5-35.0) ng/L Total Protein (6.5-8.0) g/dL Albumin (3.5-5.0) g/dL Urine Color Urine Appearance Urine pH (5.0-9.0) Ur Specific [place] (1.005-1.025) Urine Protein (Neg-Trace) mg/dL Urine Glucose (UA) (Negative) mg/dL Urine Ketones (Negative) mg/dL Urine Blood (Negative) Urine Nitrite (Negative) Ur Leukocyte Esterase (Negative) Urine RBC (0-2) /HPF Urine WBC (0-5) /HPF Ur Squamous Epith Cells (0-2) /HPF Urine Bacteria (None Seen) Hyaline Casts (0-2) /LPF COVID-19 (JOANN) (Negative) COVID-19 Clin Com 02/28/23 02/28/23 02/28/23 Range/Units 08:46 12:49 20:34 WBC (4.8-10.8) X10*3/uL RBC (4.60-5.80) X10*6/uL Hgb (14.0-18.0) g/dl Hct (42.0-52.0) % MCV (80.0-98.0) fL MCH (27.0-33.0) pg MCHC (31.0-36.0) g/dl RDW (11.0-16.0) % Plt Count (160-400) X10*3/uL MPV (9.4-12.4) fL Immature Gran % (Auto) (0.0-0.4) % Neut % (Auto) (45-73) % Lymph % (Auto) (20-40) % [place] % (Auto) (2-11) % Eos % (Auto) (0-4) % Baso % (Auto) (0-2) % Lymph # (Auto) (1.2-4.9) X10*3/uL [place] # (Auto) (0.1-1.2) X10*3/uL Eos # (Auto) (0.0-0.4) X10*3/uL Baso # (Auto) (0.0-0.2) X10*3/uL Abs Immat Gran (auto) (0.00-0.03) X10*3/uL Absolute Neuts (auto) (2.0-8.3) x10*3/uL Absolute Nucleated RBC (0.0-0.012) X10*3/uL Nucleated RBC % (auto) (0.0-0.2) /100WBC Smear Tech's Comments Sodium (135-145) mmol/L Potassium (3.3-5.1) mmol/L Chloride (96-108) mmol/L Carbon Dioxide (22-29) mmol/L Anion Gap (12-20) BUN (9-16) mg/dL Creatinine (0.5-1.4) mg/dL Estim Creat Clear Calc Estimated GFR POC Glucose 120 H 181 H 213 H (60-115) mg/dL Random Glucose (60-115) mg/dL Lactic Acid (0.5-2.0) mmol/L Calcium (8.4-10.2) mg/dL Total Bilirubin (0.0-1.0) mg/dL Direct Bilirubin (0.0-0.5) mg/dL AST (5-37) U/L ALT (0-40) U/L Alkaline Phosphatase (39-117) U/L Troponin I High Sens (<3.5-35.0) ng/L Total Protein (6.5-8.0) g/dL Albumin (3.5-5.0) g/dL Urine Color Urine Appearance Urine pH (5.0-9.0) Ur Specific [place] (1.005-1.025) Urine Protein (Neg-Trace) mg/dL Urine Glucose (UA) (Negative) mg/dL Urine Ketones (Negative) mg/dL Urine Blood (Negative) Urine Nitrite (Negative) Ur Leukocyte Esterase (Negative) Urine RBC (0-2) /HPF Urine WBC (0-5) /HPF Ur Squamous Epith Cells (0-2) /HPF Urine Bacteria (None Seen) Hyaline Casts (0-2) /LPF COVID-19 (JOANN) (Negative) COVID-19 Clin Com 03/01/23 03/01/23 03/01/23 Range/Units 07:41 13:49 18:41 WBC (4.8-10.8) X10*3/uL RBC (4.60-5.80) X10*6/uL Hgb (14.0-18.0) g/dl Hct (42.0-52.0) % MCV (80.0-98.0) fL MCH (27.0-33.0) pg MCHC (31.0-36.0) g/dl RDW (11.0-16.0) % Plt Count (160-400) X10*3/uL MPV (9.4-12.4) fL Immature Gran % (Auto) (0.0-0.4) % Neut % (Auto) (45-73) % Lymph % (Auto) (20-40) % [place] % (Auto) (2-11) % Eos % (Auto) (0-4) % Baso % (Auto) (0-2) % Lymph # (Auto) (1.2-4.9) X10*3/uL [place] # (Auto) (0.1-1.2) X10*3/uL Eos # (Auto) (0.0-0.4) X10*3/uL Baso # (Auto) (0.0-0.2) X10*3/uL Abs Immat Gran (auto) (0.00-0.03) X10*3/uL Absolute Neuts (auto) (2.0-8.3) x10*3/uL Absolute Nucleated RBC (0.0-0.012) X10*3/uL Nucleated RBC % (auto) (0.0-0.2) /100WBC Smear Tech's Comments Sodium (135-145) mmol/L Potassium (3.3-5.1) mmol/L Chloride (96-108) mmol/L Carbon Dioxide (22-29) mmol/L Anion Gap (12-20) BUN (9-16) mg/dL Creatinine (0.5-1.4) mg/dL Estim Creat Clear Calc Estimated GFR POC Glucose 163 H 171 H 189 H (60-115) mg/dL Random Glucose (60-115) mg/dL Lactic Acid (0.5-2.0) mmol/L Calcium (8.4-10.2) mg/dL Total Bilirubin (0.0-1.0) mg/dL Direct Bilirubin (0.0-0.5) mg/dL AST (5-37) U/L ALT (0-40) U/L Alkaline Phosphatase (39-117) U/L Troponin I High Sens (<3.5-35.0) ng/L Total Protein (6.5-8.0) g/dL Albumin (3.5-5.0) g/dL Urine Color Urine Appearance Urine pH (5.0-9.0) Ur Specific [place] (1.005-1.025) Urine Protein (Neg-Trace) mg/dL Urine Glucose (UA) (Negative) mg/dL Urine Ketones (Negative) mg/dL Urine Blood (Negative) Urine Nitrite (Negative) Ur Leukocyte Esterase (Negative) Urine RBC (0-2) /HPF Urine WBC (0-5) /HPF Ur Squamous Epith Cells (0-2) /HPF Urine Bacteria (None Seen) Hyaline Casts (0-2) /LPF COVID-19 (JOANN) (Negative) COVID-19 Clin Com 03/01/23 03/02/23 03/02/23 Range/Units 20:58 12:28 16:29 WBC (4.8-10.8) X10*3/uL RBC (4.60-5.80) X10*6/uL Hgb (14.0-18.0) g/dl Hct (42.0-52.0) % MCV (80.0-98.0) fL MCH (27.0-33.0) pg MCHC (31.0-36.0) g/dl RDW (11.0-16.0) % Plt Count (160-400) X10*3/uL MPV (9.4-12.4) fL Immature Gran % (Auto) (0.0-0.4) % Neut % (Auto) (45-73) % Lymph % (Auto) (20-40) % [place] % (Auto) (2-11) % Eos % (Auto) (0-4) % Baso % (Auto) (0-2) % Lymph # (Auto) (1.2-4.9) X10*3/uL [place] # (Auto) (0.1-1.2) X10*3/uL Eos # (Auto) (0.0-0.4) X10*3/uL Baso # (Auto) (0.0-0.2) X10*3/uL Abs Immat Gran (auto) (0.00-0.03) X10*3/uL Absolute Neuts (auto) (2.0-8.3) x10*3/uL Absolute Nucleated RBC (0.0-0.012) X10*3/uL Nucleated RBC % (auto) (0.0-0.2) /100WBC Smear Tech's Comments Sodium (135-145) mmol/L Potassium (3.3-5.1) mmol/L Chloride (96-108) mmol/L Carbon Dioxide (22-29) mmol/L Anion Gap (12-20) BUN (9-16) mg/dL Creatinine (0.5-1.4) mg/dL Estim Creat Clear Calc Estimated GFR POC Glucose 178 H 119 H 237 H (60-115) mg/dL Random Glucose (60-115) mg/dL Lactic Acid (0.5-2.0) mmol/L Calcium (8.4-10.2) mg/dL Total Bilirubin (0.0-1.0) mg/dL Direct Bilirubin (0.0-0.5) mg/dL AST (5-37) U/L ALT (0-40) U/L Alkaline Phosphatase (39-117) U/L Troponin I High Sens (<3.5-35.0) ng/L Total Protein (6.5-8.0) g/dL Albumin (3.5-5.0) g/dL Urine Color Urine Appearance Urine pH (5.0-9.0) Ur Specific [place] (1.005-1.025) Urine Protein (Neg-Trace) mg/dL Urine Glucose (UA) (Negative) mg/dL Urine Ketones (Negative) mg/dL Urine Blood (Negative) Urine Nitrite (Negative) Ur Leukocyte Esterase (Negative) Urine RBC (0-2) /HPF Urine WBC (0-5) /HPF Ur Squamous Epith Cells (0-2) /HPF Urine Bacteria (None Seen) Hyaline Casts (0-2) /LPF COVID-19 (JOANN) (Negative) COVID-19 Clin Com 03/02/23 03/03/23 03/03/23 Range/Units 20:48 07:07 12:51 WBC (4.8-10.8) X10*3/uL RBC (4.60-5.80) X10*6/uL Hgb (14.0-18.0) g/dl Hct (42.0-52.0) % MCV (80.0-98.0) fL MCH (27.0-33.0) pg MCHC (31.0-36.0) g/dl RDW (11.0-16.0) % Plt Count (160-400) X10*3/uL MPV (9.4-12.4) fL Immature Gran % (Auto) (0.0-0.4) % Neut % (Auto) (45-73) % Lymph % (Auto) (20-40) % [place] % (Auto) (2-11) % Eos % (Auto) (0-4) % Baso % (Auto) (0-2) % Lymph # (Auto) (1.2-4.9) X10*3/uL [place] # (Auto) (0.1-1.2) X10*3/uL Eos # (Auto) (0.0-0.4) X10*3/uL Baso # (Auto) (0.0-0.2) X10*3/uL Abs Immat Gran (auto) (0.00-0.03) X10*3/uL Absolute Neuts (auto) (2.0-8.3) x10*3/uL Absolute Nucleated RBC (0.0-0.012) X10*3/uL Nucleated RBC % (auto) (0.0-0.2) /100WBC Smear Tech's Comments Sodium (135-145) mmol/L Potassium (3.3-5.1) mmol/L Chloride (96-108) mmol/L Carbon Dioxide (22-29) mmol/L Anion Gap (12-20) BUN (9-16) mg/dL Creatinine (0.5-1.4) mg/dL Estim Creat Clear Calc Estimated GFR POC Glucose 109 120 H 129 H (60-115) mg/dL Random Glucose (60-115) mg/dL Lactic Acid (0.5-2.0) mmol/L Calcium (8.4-10.2) mg/dL Total Bilirubin (0.0-1.0) mg/dL Direct Bilirubin (0.0-0.5) mg/dL AST (5-37) U/L ALT (0-40) U/L Alkaline Phosphatase (39-117) U/L Troponin I High Sens (<3.5-35.0) ng/L Total Protein (6.5-8.0) g/dL Albumin (3.5-5.0) g/dL Urine Color Urine Appearance Urine pH (5.0-9.0) Ur Specific [place] (1.005-1.025) Urine Protein (Neg-Trace) mg/dL Urine Glucose (UA) (Negative) mg/dL Urine Ketones (Negative) mg/dL Urine Blood (Negative) Urine Nitrite (Negative) Ur Leukocyte Esterase (Negative) Urine RBC (0-2) /HPF Urine WBC (0-5) /HPF Ur Squamous Epith Cells (0-2) /HPF Urine Bacteria (None Seen) Hyaline Casts (0-2) /LPF COVID-19 (JOANN) (Negative) COVID-19 Clin Com 03/03/23 03/03/23 03/04/23 Range/Units 18:21 21:12 07:10 WBC (4.8-10.8) X10*3/uL RBC (4.60-5.80) X10*6/uL Hgb (14.0-18.0) g/dl Hct (42.0-52.0) % MCV (80.0-98.0) fL MCH (27.0-33.0) pg MCHC (31.0-36.0) g/dl RDW (11.0-16.0) % Plt Count (160-400) X10*3/uL MPV (9.4-12.4) fL Immature Gran % (Auto) (0.0-0.4) % Neut % (Auto) (45-73) % Lymph % (Auto) (20-40) % [place] % (Auto) (2-11) % Eos % (Auto) (0-4) % Baso % (Auto) (0-2) % Lymph # (Auto) (1.2-4.9) X10*3/uL [place] # (Auto) (0.1-1.2) X10*3/uL Eos # (Auto) (0.0-0.4) X10*3/uL Baso # (Auto) (0.0-0.2) X10*3/uL Abs Immat Gran (auto) (0.00-0.03) X10*3/uL Absolute Neuts (auto) (2.0-8.3) x10*3/uL Absolute Nucleated RBC (0.0-0.012) X10*3/uL Nucleated RBC % (auto) (0.0-0.2) /100WBC Smear Tech's Comments Sodium (135-145) mmol/L Potassium (3.3-5.1) mmol/L Chloride (96-108) mmol/L Carbon Dioxide (22-29) mmol/L Anion Gap (12-20) BUN (9-16) mg/dL Creatinine (0.5-1.4) mg/dL Estim Creat Clear Calc Estimated GFR POC Glucose 183 H 172 H 143 H (60-115) mg/dL Random Glucose (60-115) mg/dL Lactic Acid (0.5-2.0) mmol/L Calcium (8.4-10.2) mg/dL Total Bilirubin (0.0-1.0) mg/dL Direct Bilirubin (0.0-0.5) mg/dL AST (5-37) U/L ALT (0-40) U/L Alkaline Phosphatase (39-117) U/L Troponin I High Sens (<3.5-35.0) ng/L Total Protein (6.5-8.0) g/dL Albumin (3.5-5.0) g/dL Urine Color Urine Appearance Urine pH (5.0-9.0) Ur Specific [place] (1.005-1.025) Urine Protein (Neg-Trace) mg/dL Urine Glucose (UA) (Negative) mg/dL Urine Ketones (Negative) mg/dL Urine Blood (Negative) Urine Nitrite (Negative) Ur Leukocyte Esterase (Negative) Urine RBC (0-2) /HPF Urine WBC (0-5) /HPF Ur Squamous Epith Cells (0-2) /HPF Urine Bacteria (None Seen) Hyaline Casts (0-2) /LPF COVID-19 (JOANN) (Negative) COVID-19 Clin Com 03/04/23 03/04/23 03/05/23 Range/Units 18:46 20:21 07:00 WBC (4.8-10.8) X10*3/uL RBC (4.60-5.80) X10*6/uL Hgb (14.0-18.0) g/dl Hct (42.0-52.0) % MCV (80.0-98.0) fL MCH (27.0-33.0) pg MCHC (31.0-36.0) g/dl RDW (11.0-16.0) % Plt Count (160-400) X10*3/uL MPV (9.4-12.4) fL Immature Gran % (Auto) (0.0-0.4) % Neut % (Auto) (45-73) % Lymph % (Auto) (20-40) % [place] % (Auto) (2-11) % Eos % (Auto) (0-4) % Baso % (Auto) (0-2) % Lymph # (Auto) (1.2-4.9) X10*3/uL [place] # (Auto) (0.1-1.2) X10*3/uL Eos # (Auto) (0.0-0.4) X10*3/uL Baso # (Auto) (0.0-0.2) X10*3/uL Abs Immat Gran (auto) (0.00-0.03) X10*3/uL Absolute Neuts (auto) (2.0-8.3) x10*3/uL Absolute Nucleated RBC (0.0-0.012) X10*3/uL Nucleated RBC % (auto) (0.0-0.2) /100WBC Smear Tech's Comments Sodium (135-145) mmol/L Potassium (3.3-5.1) mmol/L Chloride (96-108) mmol/L Carbon Dioxide (22-29) mmol/L Anion Gap (12-20) BUN (9-16) mg/dL Creatinine (0.5-1.4) mg/dL Estim Creat Clear Calc Estimated GFR POC Glucose 167 H 216 H 97 (60-115) mg/dL Random Glucose (60-115) mg/dL Lactic Acid (0.5-2.0) mmol/L Calcium (8.4-10.2) mg/dL Total Bilirubin (0.0-1.0) mg/dL Direct Bilirubin (0.0-0.5) mg/dL AST (5-37) U/L ALT (0-40) U/L Alkaline Phosphatase (39-117) U/L Troponin I High Sens (<3.5-35.0) ng/L Total Protein (6.5-8.0) g/dL Albumin (3.5-5.0) g/dL Urine Color Urine Appearance Urine pH (5.0-9.0) Ur Specific [place] (1.005-1.025) Urine Protein (Neg-Trace) mg/dL Urine Glucose (UA) (Negative) mg/dL Urine Ketones (Negative) mg/dL Urine Blood (Negative) Urine Nitrite (Negative) Ur Leukocyte Esterase (Negative) Urine RBC (0-2) /HPF Urine WBC (0-5) /HPF Ur Squamous Epith Cells (0-2) /HPF Urine Bacteria (None Seen) Hyaline Casts (0-2) /LPF COVID-19 (JOANN) (Negative) COVID-19 Clin Com 03/05/23 03/05/23 03/05/23 Range/Units 07:18 13:13 17:52 WBC (4.8-10.8) X10*3/uL RBC (4.60-5.80) X10*6/uL Hgb (14.0-18.0) g/dl Hct (42.0-52.0) % MCV (80.0-98.0) fL MCH (27.0-33.0) pg MCHC (31.0-36.0) g/dl RDW (11.0-16.0) % Plt Count (160-400) X10*3/uL MPV (9.4-12.4) fL Immature Gran % (Auto) (0.0-0.4) % Neut % (Auto) (45-73) % Lymph % (Auto) (20-40) % [place] % (Auto) (2-11) % Eos % (Auto) (0-4) % Baso % (Auto) (0-2) % Lymph # (Auto) (1.2-4.9) X10*3/uL [place] # (Auto) (0.1-1.2) X10*3/uL Eos # (Auto) (0.0-0.4) X10*3/uL Baso # (Auto) (0.0-0.2) X10*3/uL Abs Immat Gran (auto) (0.00-0.03) X10*3/uL Absolute Neuts (auto) (2.0-8.3) x10*3/uL Absolute Nucleated RBC (0.0-0.012) X10*3/uL Nucleated RBC % (auto) (0.0-0.2) /100WBC Smear Tech's Comments Sodium (135-145) mmol/L Potassium (3.3-5.1) mmol/L Chloride (96-108) mmol/L Carbon Dioxide (22-29) mmol/L Anion Gap (12-20) BUN (9-16) mg/dL Creatinine (0.5-1.4) mg/dL Estim Creat Clear Calc Estimated GFR POC Glucose 108 141 H 195 H (60-115) mg/dL Random Glucose (60-115) mg/dL Lactic Acid (0.5-2.0) mmol/L Calcium (8.4-10.2) mg/dL Total Bilirubin (0.0-1.0) mg/dL Direct Bilirubin (0.0-0.5) mg/dL AST (5-37) U/L ALT (0-40) U/L Alkaline Phosphatase (39-117) U/L Troponin I High Sens (<3.5-35.0) ng/L Total Protein (6.5-8.0) g/dL Albumin (3.5-5.0) g/dL Urine Color Urine Appearance Urine pH (5.0-9.0) Ur Specific [place] (1.005-1.025) Urine Protein (Neg-Trace) mg/dL Urine Glucose (UA) (Negative) mg/dL Urine Ketones (Negative) mg/dL Urine Blood (Negative) Urine Nitrite (Negative) Ur Leukocyte Esterase (Negative) Urine RBC (0-2) /HPF Urine WBC (0-5) /HPF Ur Squamous Epith Cells (0-2) /HPF Urine Bacteria (None Seen) Hyaline Casts (0-2) /LPF COVID-19 (JOANN) (Negative) COVID-19 Clin Com 03/05/23 03/06/23 03/06/23 Range/Units 20:27 07:46 13:13 WBC (4.8-10.8) X10*3/uL RBC (4.60-5.80) X10*6/uL Hgb (14.0-18.0) g/dl Hct (42.0-52.0) % MCV (80.0-98.0) fL MCH (27.0-33.0) pg MCHC (31.0-36.0) g/dl RDW (11.0-16.0) % Plt Count (160-400) X10*3/uL MPV (9.4-12.4) fL Immature Gran % (Auto) (0.0-0.4) % Neut % (Auto) (45-73) % Lymph % (Auto) (20-40) % [place] % (Auto) (2-11) % Eos % (Auto) (0-4) % Baso % (Auto) (0-2) % Lymph # (Auto) (1.2-4.9) X10*3/uL [place] # (Auto) (0.1-1.2) X10*3/uL Eos # (Auto) (0.0-0.4) X10*3/uL Baso # (Auto) (0.0-0.2) X10*3/uL Abs Immat Gran (auto) (0.00-0.03) X10*3/uL Absolute Neuts (auto) (2.0-8.3) x10*3/uL Absolute Nucleated RBC (0.0-0.012) X10*3/uL Nucleated RBC % (auto) (0.0-0.2) /100WBC Smear Tech's Comments Sodium (135-145) mmol/L Potassium (3.3-5.1) mmol/L Chloride (96-108) mmol/L Carbon Dioxide (22-29) mmol/L Anion Gap (12-20) BUN (9-16) mg/dL Creatinine (0.5-1.4) mg/dL Estim Creat Clear Calc Estimated GFR POC Glucose 187 H 116 H 104 (60-115) mg/dL Random Glucose (60-115) mg/dL Lactic Acid (0.5-2.0) mmol/L Calcium (8.4-10.2) mg/dL Total Bilirubin (0.0-1.0) mg/dL Direct Bilirubin (0.0-0.5) mg/dL AST (5-37) U/L ALT (0-40) U/L Alkaline Phosphatase (39-117) U/L Troponin I High Sens (<3.5-35.0) ng/L Total Protein (6.5-8.0) g/dL Albumin (3.5-5.0) g/dL Urine Color Urine Appearance Urine pH (5.0-9.0) Ur Specific [place] (1.005-1.025) Urine Protein (Neg-Trace) mg/dL Urine Glucose (UA) (Negative) mg/dL Urine Ketones (Negative) mg/dL Urine Blood (Negative) Urine Nitrite (Negative) Ur Leukocyte Esterase (Negative) Urine RBC (0-2) /HPF Urine WBC (0-5) /HPF Ur Squamous Epith Cells (0-2) /HPF Urine Bacteria (None Seen) Hyaline Casts (0-2) /LPF COVID-19 (JOANN) (Negative) COVID-19 Clin Com 03/06/23 03/06/23 03/07/23 Range/Units 17:57 20:05 06:05 WBC (4.8-10.8) X10*3/uL RBC (4.60-5.80) X10*6/uL Hgb (14.0-18.0) g/dl Hct (42.0-52.0) % MCV (80.0-98.0) fL MCH (27.0-33.0) pg MCHC (31.0-36.0) g/dl RDW (11.0-16.0) % Plt Count (160-400) X10*3/uL MPV (9.4-12.4) fL Immature Gran % (Auto) (0.0-0.4) % Neut % (Auto) (45-73) % Lymph % (Auto) (20-40) % [place] % (Auto) (2-11) % Eos % (Auto) (0-4) % Baso % (Auto) (0-2) % Lymph # (Auto) (1.2-4.9) X10*3/uL [place] # (Auto) (0.1-1.2) X10*3/uL Eos # (Auto) (0.0-0.4) X10*3/uL Baso # (Auto) (0.0-0.2) X10*3/uL Abs Immat Gran (auto) (0.00-0.03) X10*3/uL Absolute Neuts (auto) (2.0-8.3) x10*3/uL Absolute Nucleated RBC (0.0-0.012) X10*3/uL Nucleated RBC % (auto) (0.0-0.2) /100WBC Smear Tech's Comments Sodium (135-145) mmol/L Potassium (3.3-5.1) mmol/L Chloride (96-108) mmol/L Carbon Dioxide (22-29) mmol/L Anion Gap (12-20) BUN (9-16) mg/dL Creatinine (0.5-1.4) mg/dL Estim Creat Clear Calc Estimated GFR POC Glucose 204 H 172 H 106 (60-115) mg/dL Random Glucose (60-115) mg/dL Lactic Acid (0.5-2.0) mmol/L Calcium (8.4-10.2) mg/dL Total Bilirubin (0.0-1.0) mg/dL Direct Bilirubin (0.0-0.5) mg/dL AST (5-37) U/L ALT (0-40) U/L Alkaline Phosphatase (39-117) U/L Troponin I High Sens (<3.5-35.0) ng/L Total Protein (6.5-8.0) g/dL Albumin (3.5-5.0) g/dL Urine Color Urine Appearance Urine pH (5.0-9.0) Ur Specific [place] (1.005-1.025) Urine Protein (Neg-Trace) mg/dL Urine Glucose (UA) (Negative) mg/dL Urine Ketones (Negative) mg/dL Urine Blood (Negative) Urine Nitrite (Negative) Ur Leukocyte Esterase (Negative) Urine RBC (0-2) /HPF Urine WBC (0-5) /HPF Ur Squamous Epith Cells (0-2) /HPF Urine Bacteria (None Seen) Hyaline Casts (0-2) /LPF COVID-19 (JOANN) (Negative) COVID-19 Clin Com 03/07/23 03/07/23 03/07/23 Range/Units 09:12 12:37 18:01 WBC (4.8-10.8) X10*3/uL RBC (4.60-5.80) X10*6/uL Hgb (14.0-18.0) g/dl Hct (42.0-52.0) % MCV (80.0-98.0) fL MCH (27.0-33.0) pg MCHC (31.0-36.0) g/dl RDW (11.0-16.0) % Plt Count (160-400) X10*3/uL MPV (9.4-12.4) fL Immature Gran % (Auto) (0.0-0.4) % Neut % (Auto) (45-73) % Lymph % (Auto) (20-40) % [place] % (Auto) (2-11) % Eos % (Auto) (0-4) % Baso % (Auto) (0-2) % Lymph # (Auto) (1.2-4.9) X10*3/uL [place] # (Auto) (0.1-1.2) X10*3/uL Eos # (Auto) (0.0-0.4) X10*3/uL Baso # (Auto) (0.0-0.2) X10*3/uL Abs Immat Gran (auto) (0.00-0.03) X10*3/uL Absolute Neuts (auto) (2.0-8.3) x10*3/uL Absolute Nucleated RBC (0.0-0.012) X10*3/uL Nucleated RBC % (auto) (0.0-0.2) /100WBC Smear Tech's Comments Sodium (135-145) mmol/L Potassium (3.3-5.1) mmol/L Chloride (96-108) mmol/L Carbon Dioxide (22-29) mmol/L Anion Gap (12-20) BUN (9-16) mg/dL Creatinine (0.5-1.4) mg/dL Estim Creat Clear Calc Estimated GFR POC Glucose 190 H 169 H 155 H (60-115) mg/dL Random Glucose (60-115) mg/dL Lactic Acid (0.5-2.0) mmol/L Calcium (8.4-10.2) mg/dL Total Bilirubin (0.0-1.0) mg/dL Direct Bilirubin (0.0-0.5) mg/dL AST (5-37) U/L ALT (0-40) U/L Alkaline Phosphatase (39-117) U/L Troponin I High Sens (<3.5-35.0) ng/L Total Protein (6.5-8.0) g/dL Albumin (3.5-5.0) g/dL Urine Color Urine Appearance Urine pH (5.0-9.0) Ur Specific [place] (1.005-1.025) Urine Protein (Neg-Trace) mg/dL Urine Glucose (UA) (Negative) mg/dL Urine Ketones (Negative) mg/dL Urine Blood (Negative) Urine Nitrite (Negative) Ur Leukocyte Esterase (Negative) Urine RBC (0-2) /HPF Urine WBC (0-5) /HPF Ur Squamous Epith Cells (0-2) /HPF Urine Bacteria (None Seen) Hyaline Casts (0-2) /LPF COVID-19 (JOANN) (Negative) COVID-19 Clin Com 03/07/23 03/08/23 03/08/23 Range/Units 20:28 09:01 11:45 WBC (4.8-10.8) X10*3/uL RBC (4.60-5.80) X10*6/uL Hgb (14.0-18.0) g/dl Hct (42.0-52.0) % MCV (80.0-98.0) fL MCH (27.0-33.0) pg MCHC (31.0-36.0) g/dl RDW (11.0-16.0) % Plt Count (160-400) X10*3/uL MPV (9.4-12.4) fL Immature Gran % (Auto) (0.0-0.4) % Neut % (Auto) (45-73) % Lymph % (Auto) (20-40) % [place] % (Auto) (2-11) % Eos % (Auto) (0-4) % Baso % (Auto) (0-2) % Lymph # (Auto) (1.2-4.9) X10*3/uL [place] # (Auto) (0.1-1.2) X10*3/uL Eos # (Auto) (0.0-0.4) X10*3/uL Baso # (Auto) (0.0-0.2) X10*3/uL Abs Immat Gran (auto) (0.00-0.03) X10*3/uL Absolute Neuts (auto) (2.0-8.3) x10*3/uL Absolute Nucleated RBC (0.0-0.012) X10*3/uL Nucleated RBC % (auto) (0.0-0.2) /100WBC Smear Tech's Comments Sodium (135-145) mmol/L Potassium (3.3-5.1) mmol/L Chloride (96-108) mmol/L Carbon Dioxide (22-29) mmol/L Anion Gap (12-20) BUN (9-16) mg/dL Creatinine (0.5-1.4) mg/dL Estim Creat Clear Calc Estimated GFR POC Glucose 192 H 120 H 216 H (60-115) mg/dL Random Glucose (60-115) mg/dL Lactic Acid (0.5-2.0) mmol/L Calcium (8.4-10.2) mg/dL Total Bilirubin (0.0-1.0) mg/dL Direct Bilirubin (0.0-0.5) mg/dL AST (5-37) U/L ALT (0-40) U/L Alkaline Phosphatase (39-117) U/L Troponin I High Sens (<3.5-35.0) ng/L Total Protein (6.5-8.0) g/dL Albumin (3.5-5.0) g/dL Urine Color Urine Appearance Urine pH (5.0-9.0) Ur Specific [place] (1.005-1.025) Urine Protein (Neg-Trace) mg/dL Urine Glucose (UA) (Negative) mg/dL Urine Ketones (Negative) mg/dL Urine Blood (Negative) Urine Nitrite (Negative) Ur Leukocyte Esterase (Negative) Urine RBC (0-2) /HPF Urine WBC (0-5) /HPF Ur Squamous Epith Cells (0-2) /HPF Urine Bacteria (None Seen) Hyaline Casts (0-2) /LPF COVID-19 (JOANN) (Negative) COVID-19 Clin Com 03/08/23 03/08/23 03/08/23 Range/Units 16:39 21:07 23:54 WBC (4.8-10.8) X10*3/uL RBC (4.60-5.80) X10*6/uL Hgb (14.0-18.0) g/dl Hct (42.0-52.0) % MCV (80.0-98.0) fL MCH (27.0-33.0) pg MCHC (31.0-36.0) g/dl RDW (11.0-16.0) % Plt Count (160-400) X10*3/uL MPV (9.4-12.4) fL Immature Gran % (Auto) (0.0-0.4) % Neut % (Auto) (45-73) % Lymph % (Auto) (20-40) % [place] % (Auto) (2-11) % Eos % (Auto) (0-4) % Baso % (Auto) (0-2) % Lymph # (Auto) (1.2-4.9) X10*3/uL [place] # (Auto) (0.1-1.2) X10*3/uL Eos # (Auto) (0.0-0.4) X10*3/uL Baso # (Auto) (0.0-0.2) X10*3/uL Abs Immat Gran (auto) (0.00-0.03) X10*3/uL Absolute Neuts (auto) (2.0-8.3) x10*3/uL Absolute Nucleated RBC (0.0-0.012) X10*3/uL Nucleated RBC % (auto) (0.0-0.2) /100WBC Smear Tech's Comments Sodium (135-145) mmol/L Potassium (3.3-5.1) mmol/L Chloride (96-108) mmol/L Carbon Dioxide (22-29) mmol/L Anion Gap (12-20) BUN (9-16) mg/dL Creatinine (0.5-1.4) mg/dL Estim Creat Clear Calc Estimated GFR POC Glucose 153 H 236 H 230 H (60-115) mg/dL Random Glucose (60-115) mg/dL Lactic Acid (0.5-2.0) mmol/L Calcium (8.4-10.2) mg/dL Total Bilirubin (0.0-1.0) mg/dL Direct Bilirubin (0.0-0.5) mg/dL AST (5-37) U/L ALT (0-40) U/L Alkaline Phosphatase (39-117) U/L Troponin I High Sens (<3.5-35.0) ng/L Total Protein (6.5-8.0) g/dL Albumin (3.5-5.0) g/dL Urine Color Urine Appearance Urine pH (5.0-9.0) Ur Specific [place] (1.005-1.025) Urine Protein (Neg-Trace) mg/dL Urine Glucose (UA) (Negative) mg/dL Urine Ketones (Negative) mg/dL Urine Blood (Negative) Urine Nitrite (Negative) Ur Leukocyte Esterase (Negative) Urine RBC (0-2) /HPF Urine WBC (0-5) /HPF Ur Squamous Epith Cells (0-2) /HPF Urine Bacteria (None Seen) Hyaline Casts (0-2) /LPF COVID-19 (JOANN) (Negative) COVID-19 Clin Com 03/09/23 03/09/23 03/09/23 Range/Units 07:08 11:35 15:32 WBC (4.8-10.8) X10*3/uL RBC (4.60-5.80) X10*6/uL Hgb (14.0-18.0) g/dl Hct (42.0-52.0) % MCV (80.0-98.0) fL MCH (27.0-33.0) pg MCHC (31.0-36.0) g/dl RDW (11.0-16.0) % Plt Count (160-400) X10*3/uL MPV (9.4-12.4) fL Immature Gran % (Auto) (0.0-0.4) % Neut % (Auto) (45-73) % Lymph % (Auto) (20-40) % [place] % (Auto) (2-11) % Eos % (Auto) (0-4) % Baso % (Auto) (0-2) % Lymph # (Auto) (1.2-4.9) X10*3/uL [place] # (Auto) (0.1-1.2) X10*3/uL Eos # (Auto) (0.0-0.4) X10*3/uL Baso # (Auto) (0.0-0.2) X10*3/uL Abs Immat Gran (auto) (0.00-0.03) X10*3/uL Absolute Neuts (auto) (2.0-8.3) x10*3/uL Absolute Nucleated RBC (0.0-0.012) X10*3/uL Nucleated RBC % (auto) (0.0-0.2) /100WBC Smear Tech's Comments Sodium (135-145) mmol/L Potassium (3.3-5.1) mmol/L Chloride (96-108) mmol/L Carbon Dioxide (22-29) mmol/L Anion Gap (12-20) BUN (9-16) mg/dL Creatinine (0.5-1.4) mg/dL Estim Creat Clear Calc Estimated GFR POC Glucose 120 H 259 H 104 (60-115) mg/dL Random Glucose (60-115) mg/dL Lactic Acid (0.5-2.0) mmol/L Calcium (8.4-10.2) mg/dL Total Bilirubin (0.0-1.0) mg/dL Direct Bilirubin (0.0-0.5) mg/dL AST (5-37) U/L ALT (0-40) U/L Alkaline Phosphatase (39-117) U/L Troponin I High Sens (<3.5-35.0) ng/L Total Protein (6.5-8.0) g/dL Albumin (3.5-5.0) g/dL Urine Color Urine Appearance Urine pH (5.0-9.0) Ur Specific [place] (1.005-1.025) Urine Protein (Neg-Trace) mg/dL Urine Glucose (UA) (Negative) mg/dL Urine Ketones (Negative) mg/dL Urine Blood (Negative) Urine Nitrite (Negative) Ur Leukocyte Esterase (Negative) Urine RBC (0-2) /HPF Urine WBC (0-5) /HPF Ur Squamous Epith Cells (0-2) /HPF Urine Bacteria (None Seen) Hyaline Casts (0-2) /LPF COVID-19 (JOANN) (Negative) COVID-19 Clin Com 03/09/23 03/09/23 03/09/23 Range/Units 16:07 16:07 16:07 WBC 5.8 (4.8-10.8) X10*3/uL RBC 4.34 L (4.60-5.80) X10*6/uL Hgb 13.8 L (14.0-18.0) g/dl Hct 40.4 L (42.0-52.0) % MCV 93.1 (80.0-98.0) fL MCH 31.8 (27.0-33.0) pg MCHC 34.2 (31.0-36.0) g/dl RDW 13.4 (11.0-16.0) % Plt Count 110 L D (160-400) X10*3/uL MPV 11.4 (9.4-12.4) fL Immature Gran % (Auto) 0.2 (0.0-0.4) % Neut % (Auto) 66.8 (45-73) % Lymph % (Auto) 14.6 L (20-40) % [place] % (Auto) 12.2 H (2-11) % Eos % (Auto) 5.5 H (0-4) % Baso % (Auto) 0.7 (0-2) % Lymph # (Auto) 0.9 L (1.2-4.9) X10*3/uL [place] # (Auto) 0.7 (0.1-1.2) X10*3/uL Eos # (Auto) 0.3 (0.0-0.4) X10*3/uL Baso # (Auto) 0.0 (0.0-0.2) X10*3/uL Abs Immat Gran (auto) 0.01 (0.00-0.03) X10*3/uL Absolute Neuts (auto) 3.9 (2.0-8.3) x10*3/uL Absolute Nucleated RBC 0.000 (0.0-0.012) X10*3/uL Nucleated RBC % (auto) 0.0 (0.0-0.2) /100WBC Smear Tech's Comments Sodium 141 (135-145) mmol/L Potassium 4.8 (3.3-5.1) mmol/L Chloride 104 (96-108) mmol/L Carbon Dioxide 31 H (22-29) mmol/L Anion Gap 11 L (12-20) BUN 46 H (9-16) mg/dL Creatinine 1.47 H (0.5-1.4) mg/dL Estim Creat Clear Calc 36.8 Estimated GFR 46 POC Glucose (60-115) mg/dL Random Glucose 77 (60-115) mg/dL Lactic Acid (0.5-2.0) mmol/L Calcium 8.8 (8.4-10.2) mg/dL Total Bilirubin 0.9 (0.0-1.0) mg/dL Direct Bilirubin 0.3 (0.0-0.5) mg/dL AST 19 (5-37) U/L ALT 20 (0-40) U/L Alkaline Phosphatase 82 (39-117) U/L Troponin I High Sens 18.7 (<3.5-35.0) ng/L Total Protein 5.3 L (6.5-8.0) g/dL Albumin 3.5 (3.5-5.0) g/dL Urine Color Urine Appearance Urine pH (5.0-9.0) Ur Specific [place] (1.005-1.025) Urine Protein (Neg-Trace) mg/dL Urine Glucose (UA) (Negative) mg/dL Urine Ketones (Negative) mg/dL Urine Blood (Negative) Urine Nitrite (Negative) Ur Leukocyte Esterase (Negative) Urine RBC (0-2) /HPF Urine WBC (0-5) /HPF Ur Squamous Epith Cells (0-2) /HPF Urine Bacteria (None Seen) Hyaline Casts (0-2) /LPF COVID-19 (JOANN) (Negative) COVID-19 Clin Com 03/09/23 03/09/23 03/10/23 Range/Units 16:34 21:12 07:34 WBC (4.8-10.8) X10*3/uL RBC (4.60-5.80) X10*6/uL Hgb (14.0-18.0) g/dl Hct (42.0-52.0) % MCV (80.0-98.0) fL MCH (27.0-33.0) pg MCHC (31.0-36.0) g/dl RDW (11.0-16.0) % Plt Count (160-400) X10*3/uL MPV (9.4-12.4) fL Immature Gran % (Auto) (0.0-0.4) % Neut % (Auto) (45-73) % Lymph % (Auto) (20-40) % [place] % (Auto) (2-11) % Eos % (Auto) (0-4) % Baso % (Auto) (0-2) % Lymph # (Auto) (1.2-4.9) X10*3/uL [place] # (Auto) (0.1-1.2) X10*3/uL Eos # (Auto) (0.0-0.4) X10*3/uL Baso # (Auto) (0.0-0.2) X10*3/uL Abs Immat Gran (auto) (0.00-0.03) X10*3/uL Absolute Neuts (auto) (2.0-8.3) x10*3/uL Absolute Nucleated RBC (0.0-0.012) X10*3/uL Nucleated RBC % (auto) (0.0-0.2) /100WBC Smear Tech's Comments Sodium (135-145) mmol/L Potassium (3.3-5.1) mmol/L Chloride (96-108) mmol/L Carbon Dioxide (22-29) mmol/L Anion Gap (12-20) BUN (9-16) mg/dL Creatinine (0.5-1.4) mg/dL Estim Creat Clear Calc Estimated GFR POC Glucose 94 178 H 141 H (60-115) mg/dL Random Glucose (60-115) mg/dL Lactic Acid (0.5-2.0) mmol/L Calcium (8.4-10.2) mg/dL Total Bilirubin (0.0-1.0) mg/dL Direct Bilirubin (0.0-0.5) mg/dL AST (5-37) U/L ALT (0-40) U/L Alkaline Phosphatase (39-117) U/L Troponin I High Sens (<3.5-35.0) ng/L Total Protein (6.5-8.0) g/dL Albumin (3.5-5.0) g/dL Urine Color Urine Appearance Urine pH (5.0-9.0) Ur Specific [place] (1.005-1.025) Urine Protein (Neg-Trace) mg/dL Urine Glucose (UA) (Negative) mg/dL Urine Ketones (Negative) mg/dL Urine Blood (Negative) Urine Nitrite (Negative) Ur Leukocyte Esterase (Negative) Urine RBC (0-2) /HPF Urine WBC (0-5) /HPF Ur Squamous Epith Cells (0-2) /HPF Urine Bacteria (None Seen) Hyaline Casts (0-2) /LPF COVID-19 (JOANN) (Negative) COVID-19 Clin Com 03/10/23 03/10/23 03/10/23 Range/Units 11:14 11:27 16:32 WBC (4.8-10.8) X10*3/uL RBC (4.60-5.80) X10*6/uL Hgb (14.0-18.0) g/dl Hct (42.0-52.0) % MCV (80.0-98.0) fL MCH (27.0-33.0) pg MCHC (31.0-36.0) g/dl RDW (11.0-16.0) % Plt Count (160-400) X10*3/uL MPV (9.4-12.4) fL Immature Gran % (Auto) (0.0-0.4) % Neut % (Auto) (45-73) % Lymph % (Auto) (20-40) % [place] % (Auto) (2-11) % Eos % (Auto) (0-4) % Baso % (Auto) (0-2) % Lymph # (Auto) (1.2-4.9) X10*3/uL [place] # (Auto) (0.1-1.2) X10*3/uL Eos # (Auto) (0.0-0.4) X10*3/uL Baso # (Auto) (0.0-0.2) X10*3/uL Abs Immat Gran (auto) (0.00-0.03) X10*3/uL Absolute Neuts (auto) (2.0-8.3) x10*3/uL Absolute Nucleated RBC (0.0-0.012) X10*3/uL Nucleated RBC % (auto) (0.0-0.2) /100WBC Smear Tech's Comments Sodium (135-145) mmol/L Potassium (3.3-5.1) mmol/L Chloride (96-108) mmol/L Carbon Dioxide (22-29) mmol/L Anion Gap (12-20) BUN (9-16) mg/dL Creatinine (0.5-1.4) mg/dL Estim Creat Clear Calc Estimated GFR POC Glucose 177 H 186 H (60-115) mg/dL Random Glucose (60-115) mg/dL Lactic Acid (0.5-2.0) mmol/L Calcium (8.4-10.2) mg/dL Total Bilirubin (0.0-1.0) mg/dL Direct Bilirubin (0.0-0.5) mg/dL AST (5-37) U/L ALT (0-40) U/L Alkaline Phosphatase (39-117) U/L Troponin I High Sens (<3.5-35.0) ng/L Total Protein (6.5-8.0) g/dL Albumin (3.5-5.0) g/dL Urine Color Yellow Urine Appearance Clear Urine pH 6.0 (5.0-9.0) Ur Specific [place] 1.010 (1.005-1.025) Urine Protein Negative (Neg-Trace) mg/dL Urine Glucose (UA) Negative (Negative) mg/dL Urine Ketones Negative (Negative) mg/dL Urine Blood Negative (Negative) Urine Nitrite Negative (Negative) Ur Leukocyte Esterase Large (3+) H (Negative) Urine RBC 0-2 (0-2) /HPF Urine WBC >50 H (0-5) /HPF Ur Squamous Epith Cells 0-2 (0-2) /HPF Urine Bacteria None Seen (None Seen) Hyaline Casts 0-2 (0-2) /LPF COVID-19 (JOANN) (Negative) COVID-19 Clin Com 03/10/23 03/10/23 03/10/23 Range/Units 18:58 18:58 21:05 WBC 5.0 (4.8-10.8) X10*3/uL RBC 4.27 L (4.60-5.80) X10*6/uL Hgb 13.4 L (14.0-18.0) g/dl Hct 39.7 L (42.0-52.0) % MCV 93.0 (80.0-98.0) fL MCH 31.4 (27.0-33.0) pg MCHC 33.8 (31.0-36.0) g/dl RDW 13.5 (11.0-16.0) % Plt Count 99 L (160-400) X10*3/uL MPV 11.1 (9.4-12.4) fL Immature Gran % (Auto) 0.2 (0.0-0.4) % Neut % (Auto) 69.2 (45-73) % Lymph % (Auto) 12.2 L (20-40) % [place] % (Auto) 12.4 H (2-11) % Eos % (Auto) 5.2 H (0-4) % Baso % (Auto) 0.8 (0-2) % Lymph # (Auto) 0.6 L (1.2-4.9) X10*3/uL [place] # (Auto) 0.6 (0.1-1.2) X10*3/uL Eos # (Auto) 0.3 (0.0-0.4) X10*3/uL Baso # (Auto) 0.0 (0.0-0.2) X10*3/uL Abs Immat Gran (auto) 0.01 (0.00-0.03) X10*3/uL Absolute Neuts (auto) 3.4 (2.0-8.3) x10*3/uL Absolute Nucleated RBC 0.000 (0.0-0.012) X10*3/uL Nucleated RBC % (auto) 0.0 (0.0-0.2) /100WBC Smear Tech's Comments VERIFIED Sodium 140 (135-145) mmol/L Potassium 4.1 (3.3-5.1) mmol/L Chloride 107 (96-108) mmol/L Carbon Dioxide 25 (22-29) mmol/L Anion Gap 12 (12-20) BUN 30 H (9-16) mg/dL Creatinine 1.07 (0.5-1.4) mg/dL Estim Creat Clear Calc 50.5 Estimated GFR > 60 POC Glucose 170 H (60-115) mg/dL Random Glucose 209 H (60-115) mg/dL Lactic Acid (0.5-2.0) mmol/L Calcium 8.2 L D (8.4-10.2) mg/dL Total Bilirubin (0.0-1.0) mg/dL Direct Bilirubin (0.0-0.5) mg/dL AST (5-37) U/L ALT (0-40) U/L Alkaline Phosphatase (39-117) U/L Troponin I High Sens (<3.5-35.0) ng/L Total Protein (6.5-8.0) g/dL Albumin (3.5-5.0) g/dL Urine Color Urine Appearance Urine pH (5.0-9.0) Ur Specific [place] (1.005-1.025) Urine Protein (Neg-Trace) mg/dL Urine Glucose (UA) (Negative) mg/dL Urine Ketones (Negative) mg/dL Urine Blood (Negative) Urine Nitrite (Negative) Ur Leukocyte Esterase (Negative) Urine RBC (0-2) /HPF Urine WBC (0-5) /HPF Ur Squamous Epith Cells (0-2) /HPF Urine Bacteria (None Seen) Hyaline Casts (0-2) /LPF COVID-19 (JOANN) (Negative) COVID-19 Clin Com Discharge Plan Discharge Clinical Impression: Major neurocognitive disorder due to vascular disease, without behavioral disturbance, severe Patient Disposition: Still a Patient Prescriptions: No Action bupropion HCl 150 mg tablet sustained-release 12 hr 150 mg PO DAILY atorvastatin 80 mg tablet 80 mg PO BEDTIME chlorthalidone 25 mg tablet 12.5 mg PO DAILY terazosin 2 mg capsule 2 mg PO BEDTIME metoprolol tartrate 50 mg tablet 50 mg PO BID omeprazole 20 mg capsule,delayed release(DR/EC) 20 mg PO DAILY@0630 lisinopril 40 mg tablet 40 mg PO DAILY insulin aspart U-100 [Novolog FlexPen U-100 Insulin] 100 unit/mL (3 mL) insulin pen 6 - 10 unit subcut TID Levemir FlexTouch U-100 Insuln 100 unit/mL (3 mL) insulin pen 10 unit subcut BEDTIME
[2023-03-10 16:35] LABS: Glucose, Whole Blood 186 mg/dL (60-115)
[2023-03-10 19:05] LABS: Eosinophils Absolute Auto 0.3 X10*3/uL (0.0-0.4); Hemoglobin 13.4 g/dl (14.0-18.0); Imm Gran Abs Auto 0.01 X10*3/uL (0.00-0.03); Imm Gran Pct Auto 0.2 % (0.0-0.4); MANUAL DIFF FLAG SCAN; PLT CLUMP 1; SCAN SMEAR FLAG 1
[2023-03-10 19:07] LABS: Basophils Percent Auto 0.8 % (0-2); Eosinophils Percent Auto 5.2 % (0-4); Hematocrit 39.7 % (42.0-52.0); Lymphocytes Absolute Auto 0.6 X10*3/uL (1.2-4.9); Lymphocytes Percent Auto 12.2 % (20-40); Mean Corpuscular HGB Conc 33.8 g/dl (31.0-36.0); Mean Corpuscular Hemoglobin 31.4 pg (27.0-33.0); Mean Platelet Volume 11.1 fL (9.4-12.4); Monocytes Absolute Auto 0.6 X10*3/uL (0.1-1.2); Monocytes Percent Auto 12.4 % (2-11); Neutrophils Absolute Auto 3.4 x10*3/uL (2.0-8.3); Neutrophils Percent Auto 69.2 % (45-73); Red Blood Count 4.27 X10*6/uL (4.60-5.80); Red Cell Distribution Width 13.5 % (11.0-16.0)
[2023-03-10 19:24] LABS: Platelet Count 99 X10*3/uL (160-400)
[2023-03-10 19:25] LABS: SLIDE REVIEW VERIFIED
[2023-03-10 19:27] LABS: Anion Gap 12 (12-20); Blood Urea Nitrogen 30 mg/dL (9-16); Calcium 8.2 mg/dL (8.4-10.2); Carbon Dioxide 25 mmol/L (22-29); Chloride 107 mmol/L (96-108); Creatinine Clr Calc Pharmacy 50.5; Estimated Glomerular Filt Rate > 60; Glucose Random 209 mg/dL (60-115); Potassium 4.1 mmol/L (3.3-5.1); Sodium 140 mmol/L (135-145)
[2023-03-10 20:04] VITALS: BP 137/91; PULSE 99; RESP 17; TEMP 36.7; O2SAT 95
[2023-03-10 21:08] LABS: Glucose, Whole Blood 170 mg/dL (60-115)
[2023-03-10] MEDS: Doxazosin Mesylate 2 MG TABLET PO (21:17)
[2023-03-10] MEDS: Atorvastatin Calcium 80 MG TABLET PO (21:18)
[2023-03-10] MEDS: Insulin Glargine,Hum.rec.anlog 100 UNIT/ML 10 ML VIAL 7 UNIT SUBCUT (21:18)
--- NOTE | 2023-03-10 22:47 | PC.NURSE ---
Assumed care of pt. at 1900. Pt. resting in bed at that time and speaking with techs. Pt. is calm and cooperative, no distress noted. Pt. took night time medications per MAR and is currently sleeping, respirations even and unlabored.
[2023-03-10 23:49] VITALS: RESP 16
[2023-03-11 06:15] VITALS: BP 134/61; PULSE 65; RESP 15; TEMP 36.6; O2SAT 95
[2023-03-11] MEDS: Omeprazole 20 MG CAPSULE.DR PO (06:15)
[2023-03-11 07:18] LABS: Glucose, Whole Blood 122 mg/dL (60-115)
[2023-03-11] MEDS: OLANZapine 2.5 MG TABLET PO ×2 (07:32→20:36)
[2023-03-11 07:57] VITALS: BP 145/63; PULSE 95; RESP 16; TEMP 36.7; O2SAT 98
[2023-03-11 11:41] LABS: Glucose, Whole Blood 208 mg/dL (60-115)
[2023-03-11] MEDS: Insulin Lispro 100 UNIT/ML 3 ML VIAL SUBCUT ×2 (11:41→20:38)
--- NOTE | 2023-03-11 13:18 | PC.NURSE ---
Pt has been calm and cooperative. pt is spending time in the rec room watching tv.
[2023-03-11 14:22] VITALS: BP 120/68; PULSE 86; RESP 20; TEMP 37.1; O2SAT 96
[2023-03-11 16:42] LABS: Glucose, Whole Blood 120 mg/dL (60-115)
[2023-03-11 20:35] LABS: Glucose, Whole Blood 244 mg/dL (60-115)
[2023-03-11] MEDS: Atorvastatin Calcium 80 MG TABLET PO (20:36)
[2023-03-11] MEDS: Doxazosin Mesylate 2 MG TABLET PO (20:36)
[2023-03-11] MEDS: Insulin Glargine,Hum.rec.anlog 100 UNIT/ML 10 ML VIAL 7 UNIT SUBCUT (20:37)
[2023-03-11 21:17] VITALS: BP 133/79; PULSE 81; RESP 17; TEMP 36.4; O2SAT 96
--- NOTE | 2023-03-11 21:18 | MHC.EDTECH ---
i took over overflow , vitals were taken , then prachi started packing up stating he was going home, we redirected him and let him know it was late that everything is closed tomorrow is another day , he was in [place] not [facility],he stated his was coming to get him i said ok, he was offered a sandwich and something to drink he refused, he is relaxing in the recliner
--- NOTE | 2023-03-11 22:21 | MHC.EDTECH ---
prachi , is ambulating to and from the restroom frequently, he is confused needs some redirection on which way to go , he doesn't wanna sleep in the bed he says his is coming to take him home so he will rest in the recliner i said ok no problem
[2023-03-12 06:00] VITALS: BP 155/68; PULSE 98; RESP 18; TEMP 36.1; O2SAT 99
[2023-03-12] MEDS: Omeprazole 20 MG CAPSULE.DR PO (06:30)
[2023-03-12 07:34] LABS: Glucose, Whole Blood 121 mg/dL (60-115)
[2023-03-12] MEDS: OLANZapine 2.5 MG TABLET PO ×2 (08:02→18:03)
--- NOTE | 2023-03-12 09:52 | PC.NURSE ---
ate breakfast, ambulating w steady gait w walker in the unit, now in common area conversing with other pt's
--- NOTE | 2023-03-12 11:20 | MHC.CM.ED ---
Addendum entered by Akua Lemon 03/12/23 11:23: Adriana's daughter has returned to the area to help with emotional support. Adriana is requesting she be able to visit patient with her daughter. Only 1 visitor is allowed at the bedside at this time. Per Lester, medical library assistant, ok for patient to have 2 visitors at a time. Artemio, head of security made aware. Patient's son in October 2021 due to Covid. Family was not able to have a service at this time. [facility] is scheduled for 04/11. Adriana is curious if patient would be able to go the mass and then return to the ER. This was brought up with Crystal Pino, CM Laundry Worker. It would not be feasbile at this time for patient to leave the ER to go to the service and then return to the ER. Patient would have to be signed out AMA and then be signed back into the ER and visit would be restarted. Original Note: Patient remains in the ER overflow unit. Received 2 voicemails from patient's , Adriana requesting update. T/W spoke with Adriana via telephone. Adriana concerned patient has been here 3 weeks. T/W explained patients in the ER have waited for LTC placement up to 80 days. Also explained placement may not be local. Adriana verbalized understanding. Referral broadcasted within 50 miles to all facilities that have locked dementia units. 95 referrals made. Continue to monitor for d/c needs.
[2023-03-12] MEDS: Insulin Lispro 100 UNIT/ML 3 ML VIAL SUBCUT ×3 (11:56→22:27)
[2023-03-12 14:00] VITALS: BP 137/63; PULSE 64; RESP 16; TEMP 36.9; O2SAT 96
--- NOTE | 2023-03-12 14:25 | PC.NURSE ---
Assumed care of patient at this time. Patient in recliner, appears comfortable, resting quietly, respirations even, chest rise/fall noted, no distress noted at this time.
--- NOTE | 2023-03-12 16:30 | PC.NURSE ---
Patient eloped unit at this time, made it out into parking lot, easily redirectable. Patient states he was looking for . Security escorted us both back into building. No more elopement attempts were made.
[2023-03-12 16:48] LABS: Glucose, Whole Blood 224 mg/dL (60-115)
[2023-03-12 16:48] LABS: Glucose, Whole Blood 186 mg/dL (60-115)
[2023-03-12] MEDS: Doxazosin Mesylate 2 MG TABLET PO (18:03)
[2023-03-12] MEDS: Insulin Glargine,Hum.rec.anlog 100 UNIT/ML 10 ML VIAL 7 UNIT SUBCUT (18:03)
[2023-03-12] MEDS: Atorvastatin Calcium 80 MG TABLET PO (18:04)
[2023-03-12 21:46] LABS: Glucose, Whole Blood 184 mg/dL (60-115)
[2023-03-12 22:00] VITALS: BP 135/63; PULSE 81; RESP 18; TEMP 36.8; O2SAT 99
--- NOTE | 2023-03-13 04:19 | PC.NURSE ---
Pt would prefer to sleep in his chair overnight, offered to assist him with bed but he declined. Pt ambulatory to bathroom x2.
[2023-03-13 05:23] VITALS: BP 144/52; PULSE 92; RESP 18; TEMP 36.4; O2SAT 96
[2023-03-13] MEDS: Omeprazole 20 MG CAPSULE.DR PO (05:45)
[2023-03-13 07:11] LABS: Glucose, Whole Blood 150 mg/dL (60-115)
[2023-03-13 07:33] VITALS: BP 119/64; PULSE 82; RESP 16; TEMP 36.1; O2SAT 98
[2023-03-13] MEDS: OLANZapine 2.5 MG TABLET PO ×2 (07:35→20:51)
--- NOTE | 2023-03-13 10:30 | PC.NURSE ---
patient showered and new clothes provided. ambulating with walker-gait is steady. able to make needs known. will CTM
[2023-03-13 11:48] LABS: Glucose, Whole Blood 179 mg/dL (60-115)
[2023-03-13] MEDS: Insulin Lispro 100 UNIT/ML 3 ML VIAL SUBCUT ×2 (11:50→20:51)
--- NOTE | 2023-03-13 12:07 | MHC.CM.ED ---
Patient remains in ER overflow. Mina at [facility] in [place] will be able to offer a bed. It is 1 hour 45 miles and 99 miles from patient's home. [facility] in [place] is requesting 3 months of bank statements. This facility is 1 hour 45 mins and 98 miles from patient's home. Maddi from [facility] [place] has been asked for these statements. Spoke with patient's , Adriana about these 2 facilities. Adriana feels these facilities are too far. T/W explained if there were no other bed offers Adriana would either have to take one of these beds or take patient home. Adriana verbalized understanding. T/W reached out to facilities still following: [facility], [facility], and [facility]. Continue to monitor for d/c needs.
[2023-03-13 14:00] VITALS: BP 106/56; PULSE 102; RESP 18; TEMP 36.7; O2SAT 100
[2023-03-13 16:26] LABS: Glucose, Whole Blood 130 mg/dL (60-115)
[2023-03-13 20:26] LABS: Glucose, Whole Blood 225 mg/dL (60-115)
[2023-03-13] MEDS: Doxazosin Mesylate 2 MG TABLET PO (20:51)
[2023-03-13] MEDS: Insulin Glargine,Hum.rec.anlog 100 UNIT/ML 10 ML VIAL 7 UNIT SUBCUT (20:51)
[2023-03-13] MEDS: Atorvastatin Calcium 80 MG TABLET PO (20:51)
[2023-03-13 22:12] VITALS: BP 129/61; PULSE 95; RESP 16; TEMP 36.7; O2SAT 98
--- NOTE | 2023-03-14 05:02 | PC.NURSE ---
Pt resting comfortable in chair , likes to sleep in it, ambulated to br. with supervision. he is taking medications very well no behavioral symptoms noted.
[2023-03-14] MEDS: Omeprazole 20 MG CAPSULE.DR PO (05:50)
[2023-03-14 06:43] VITALS: BP 139/77; PULSE 94; RESP 20; TEMP 36.7; O2SAT 97
[2023-03-14 07:55] LABS: Glucose, Whole Blood 120 mg/dL (60-115)
--- NOTE | 2023-03-14 07:55 | MHC.EDTECH ---
patient sat up in recliner chair, breakfast given. clean linens given
[2023-03-14] MEDS: OLANZapine 2.5 MG TABLET PO ×2 (07:58→20:47)
[2023-03-14 11:41] LABS: Glucose, Whole Blood 183 mg/dL (60-115)
[2023-03-14] MEDS: Insulin Lispro 100 UNIT/ML 3 ML VIAL SUBCUT ×2 (11:46→16:39)
[2023-03-14 14:07] VITALS: BP 140/67; PULSE 80; RESP 20; TEMP 36.4; O2SAT 99
--- NOTE | 2023-03-14 16:08 | MHC.CM.ED ---
Patient remains in ER overflow. Mina at [facility] in [place] is able to offer a bed. [facility] in [place] is reviewing financial information. [facility] is reviewing financials. Spoke with patient's , Adriana, son Abdulkadir, and daughter Dary via telephone at [phone]. Above information discussed with family. [facility] is 1st choice at this time. Per Ignacia at the [facility], the deed to the house will have to be put back in Adriana's name because it was changed to their children 2 years ago. Adriana also obtained a small annuity for an income stream. Continue to monitor for d/c needs.
[2023-03-14 16:16] LABS: Glucose, Whole Blood 167 mg/dL (60-115)
--- NOTE | 2023-03-14 19:51 | MHC.EDTECH ---
Got patient jocelyne pants and top assist patient with night time changeover. Patient made himself comfortable on recliner while this tech got the television remote. Patient now comfortable and relaxing.
[2023-03-14] MEDS: Atorvastatin Calcium 80 MG TABLET PO (20:46)
[2023-03-14] MEDS: Insulin Glargine,Hum.rec.anlog 100 UNIT/ML 10 ML VIAL 7 UNIT SUBCUT (20:46)
[2023-03-14] MEDS: Doxazosin Mesylate 2 MG TABLET PO (20:47)
--- NOTE | 2023-03-14 21:36 | PC.NURSE ---
pt assessed, tolerated po meds, sitting in chair watching tv
[2023-03-14 22:00] VITALS: BP 159/72; PULSE 91; RESP 16; TEMP 36.2; O2SAT 96
--- NOTE | 2023-03-15 01:06 | PC.NURSE ---
Pt seen on bed comfortable sleeping, no distress noted, bed alarm on.
[2023-03-15] MEDS: Omeprazole 20 MG CAPSULE.DR PO (05:42)
[2023-03-15 07:50] LABS: Glucose, Whole Blood 148 mg/dL (60-115)
[2023-03-15 08:54] LABS: Glucose, Whole Blood 152 mg/dL (60-115)
[2023-03-15 08:57] VITALS: BP 122/89; PULSE 76; RESP 16; TEMP 36.7; O2SAT 98
--- NOTE | 2023-03-15 08:57 | MHC.EDTECH ---
Patient woke up, vitals were taken, POC was checked, patient is set up in the rec room to eat. Patient is washed up and changed.
[2023-03-15] MEDS: Insulin Lispro 100 UNIT/ML 3 ML VIAL SUBCUT ×3 (09:04→16:29)
[2023-03-15] MEDS: OLANZapine 2.5 MG TABLET PO ×2 (09:04→19:08)
--- NOTE | 2023-03-15 09:46 | MHC.EDTECH ---
Pt finished breakfast and ambulated to chair with walker to sit by the window.
--- NOTE | 2023-03-15 11:00 | PC.NURSE ---
Assumed care of patient at this time. Patient sitting in recliner watching tv, resting quietly.
[2023-03-15 11:37] LABS: Glucose, Whole Blood 169 mg/dL (60-115)
--- NOTE | 2023-03-15 11:49 | MHC.EDTECH ---
Pt sitting in recliner by bedside eating lunch.
--- NOTE | 2023-03-15 13:30 | PC.NURSE ---
Family at bedside.
--- NOTE | 2023-03-15 14:18 | MHC.CM.ED ---
Addendum entered by Akua Lemon 03/15/23 14:24: Received notification from [facility] that they will be able to accept patient once a bed on their secure unit is available. They do not anticipate it will be before Saturday. Original Note: Patient remains in ER overflow. [facility] requested clinical updates. Clinical updates sent. has questions about financials. Ignacia [employer] Producer contact info provided. 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 Continue to monitor for d/c needs.
--- NOTE | 2023-03-15 15:12 | MHC.CM.ED ---
CM spoke with Adriana regarding bed offer at [facility]. Adriana aware that they cannot accept him until Saturday. Adriana accepts bed offer. Encouraged to visit her over the weekend, and CM will wait to hear about bed availability on Saturday. Message to [facility] via [facility]. CM following for discharge planning.
[2023-03-15 16:28] LABS: Glucose, Whole Blood 157 mg/dL (60-115)
--- NOTE | 2023-03-15 16:34 | MHC.EDTECH ---
Dinner brought to patient who requested to eat at his bedside table in the recliner.
[2023-03-15] MEDS: Atorvastatin Calcium 80 MG TABLET PO (19:07)
[2023-03-15] MEDS: Insulin Glargine,Hum.rec.anlog 100 UNIT/ML 10 ML VIAL 7 UNIT SUBCUT (19:08)
[2023-03-15 19:10] VITALS: BP 142/67; PULSE 88; RESP 16; TEMP 37.1; O2SAT 97
--- NOTE | 2023-03-15 19:30 | PC.NURSE ---
Called pharmacy for missing doxazosin, they stated they would bring it.
[2023-03-15 22:07] LABS: Glucose, Whole Blood 125 mg/dL (60-115)
[2023-03-15] MEDS: Doxazosin Mesylate 2 MG TABLET PO (22:12)
[2023-03-16 01:36] VITALS: BP 138/68; PULSE 85; RESP 16; TEMP 36.2; O2SAT 94
--- NOTE | 2023-03-16 03:35 | PC.NURSE ---
Patient confused, insisting on going home. Redirectable , sleeping at present.
[2023-03-16] MEDS: Omeprazole 20 MG CAPSULE.DR PO (05:58)
[2023-03-16 07:23] LABS: Glucose, Whole Blood 135 mg/dL (60-115)
[2023-03-16] MEDS: OLANZapine 2.5 MG TABLET PO ×2 (07:39→20:20)
[2023-03-16 08:10] VITALS: BP 138/67; PULSE 85; RESP 20; TEMP 36.6; O2SAT 97
[2023-03-16 11:45] LABS: Glucose, Whole Blood 141 mg/dL (60-115)
[2023-03-16 15:32] VITALS: BP 134/58; PULSE 91; RESP 19; TEMP 36.9; O2SAT 97
[2023-03-16 16:51] LABS: Glucose, Whole Blood 200 mg/dL (60-115)
[2023-03-16] MEDS: Insulin Lispro 100 UNIT/ML 3 ML VIAL SUBCUT (16:58)
--- NOTE | 2023-03-16 17:36 | PC.NURSE ---
Uneventful day. Alert, oriented x 2, disoriented to date and situation, forgetful, reorientation provided as needed. Calm and cooperative with care. Denies pain, SOB or N&V. Tolerated diet, voided independently to bathroom with no issues. Ambulated independently several laps around the unit this afternoon with a rolling walker. All safety measures maintained.
[2023-03-16 20:03] LABS: Glucose, Whole Blood 139 mg/dL (60-115)
[2023-03-16] MEDS: Doxazosin Mesylate 2 MG TABLET PO (20:20)
[2023-03-16] MEDS: Atorvastatin Calcium 80 MG TABLET PO (20:20)
[2023-03-16] MEDS: Insulin Glargine,Hum.rec.anlog 100 UNIT/ML 10 ML VIAL 7 UNIT SUBCUT (20:20)
--- NOTE | 2023-03-16 21:13 | PC.NURSE ---
Patient A&O x2, disoriented to situation. Walks independently with walker. VSS , denies pain at present.
[2023-03-17 02:54] VITALS: BP 116/59; PULSE 69; RESP 12; TEMP 36.2; O2SAT 98
[2023-03-17] MEDS: Omeprazole 20 MG CAPSULE.DR PO (05:49)
[2023-03-17 06:00] VITALS: BP 151/71; PULSE 89; RESP 12; TEMP 36.6; O2SAT 96
[2023-03-17 07:16] LABS: Glucose, Whole Blood 116 mg/dL (60-115)
--- NOTE | 2023-03-17 07:19 | PC.NURSE ---
Assumed care at 2330. Pt A+Ox2, forgetful but pleasant. VSS. Pt ambulated to bathroom independently with walker, steady on feet. Pt denies any pain or SOB. Pt resting comfortably in recliner. Call sorensen within reach. Report given to oncoming RN.
[2023-03-17] MEDS: OLANZapine 2.5 MG TABLET PO ×2 (08:54→20:23)
[2023-03-17] MEDS: Acetaminophen 325 MG TABLET 650 MG PO (09:09)
[2023-03-17 11:08] LABS: Glucose, Whole Blood 191 mg/dL (60-115)
[2023-03-17] MEDS: Insulin Lispro 100 UNIT/ML 3 ML VIAL SUBCUT ×2 (11:45→20:23)
--- NOTE | 2023-03-17 12:33 | MHC.CM.ED ---
Pt holding for placement: has been accepted pending bed availability to [facility]. Bed availability to be discussed on 03/18 with facility.
[2023-03-17 14:00] VITALS: BP 124/59; PULSE 72; RESP 20; TEMP 36.1; O2SAT 99
[2023-03-17 16:33] LABS: Glucose, Whole Blood 144 mg/dL (60-115)
--- NOTE | 2023-03-17 16:44 | MHC.EDTECH ---
Set patient at the dinning room table for dinner.
--- NOTE | 2023-03-17 19:24 | PC.NURSE ---
Uneventful day. Alert, oriented x 2, disoriented to date and situation, forgetful, reorientation provided as needed. Calm and cooperative with care. C/O neck pain this morning, PRN Tylenol given with positive effect. Denies SOB or N&V. Tolerated diet, voided independently to bathroom with no issues. Ambulated independently several laps around the unit this afternoon with a rolling walker. All safety measures maintained.
[2023-03-17 20:18] LABS: Glucose, Whole Blood 168 mg/dL (60-115)
[2023-03-17] MEDS: Atorvastatin Calcium 80 MG TABLET PO (20:23)
[2023-03-17] MEDS: Insulin Glargine,Hum.rec.anlog 100 UNIT/ML 10 ML VIAL 7 UNIT SUBCUT (20:23)
[2023-03-17] MEDS: Doxazosin Mesylate 2 MG TABLET PO (20:23)
[2023-03-17 22:00] VITALS: BP 149/89; PULSE 100; RESP 18; TEMP 36.5
[2023-03-18] MEDS: Omeprazole 20 MG CAPSULE.DR PO (05:55)
[2023-03-18 06:00] VITALS: BP 154/61; PULSE 102; RESP 16; TEMP 36.5; O2SAT 98
[2023-03-18 08:29] LABS: Glucose, Whole Blood 123 mg/dL (60-115)
[2023-03-18] MEDS: OLANZapine 2.5 MG TABLET PO ×2 (09:35→21:01)
[2023-03-18 11:57] LABS: Glucose, Whole Blood 180 mg/dL (60-115)
[2023-03-18] MEDS: Insulin Lispro 100 UNIT/ML 3 ML VIAL SUBCUT ×2 (11:58→21:01)
[2023-03-18 12:08] LABS: Appearance Urine Clear; Color Urine Yellow; Glucose Urine UA Negative (Negative); Leukocyte Esterase Urine Negative (Negative); Nitrite Urine Negative (Negative); Urine Blood Negative (Negative); Urine Ketones Negative (Negative); Urine Protein Negative (Neg-Trace)
[2023-03-18 14:00] VITALS: BP 139/71; PULSE 92; RESP 20; TEMP 36.6; O2SAT 98
--- NOTE | 2023-03-18 16:00 | MHC.EDTECH ---
this pct assumed care of pt at 1515 ,pt sitting in recliner watching television ,pt had an ice cream for snack ,vitals sign taken .
[2023-03-18 16:10] VITALS: BP 143/66; PULSE 77; RESP 16; TEMP 36.9; O2SAT 98
[2023-03-18 16:54] LABS: Glucose, Whole Blood 140 mg/dL (60-115)
[2023-03-18 20:31] LABS: Glucose, Whole Blood 190 mg/dL (60-115)
[2023-03-18] MEDS: Doxazosin Mesylate 2 MG TABLET PO (21:01)
[2023-03-18] MEDS: Atorvastatin Calcium 80 MG TABLET PO (21:01)
[2023-03-18] MEDS: Insulin Glargine,Hum.rec.anlog 100 UNIT/ML 10 ML VIAL 7 UNIT SUBCUT (21:03)
[2023-03-18 21:19] VITALS: BP 110/69; PULSE 81; RESP 16; TEMP 36.8; O2SAT 96
--- NOTE | 2023-03-19 04:26 | PC.NURSE ---
Assumed care for pt. Pt sleeping at the bedside, in no apparent distress. Breaths are even regular and unlabored with equal chest rises. Will continue to monitor.
[2023-03-19] MEDS: Omeprazole 20 MG CAPSULE.DR PO (05:32)
[2023-03-19 07:21] LABS: Glucose, Whole Blood 118 mg/dL (60-115)
[2023-03-19] MEDS: OLANZapine 2.5 MG TABLET PO ×2 (07:41→20:39)
--- NOTE | 2023-03-19 09:10 | MHC.EDTECH ---
patient took a shower and changed clothes. New bed linens.
[2023-03-19 11:46] LABS: Glucose, Whole Blood 166 mg/dL (60-115)
[2023-03-19] MEDS: Insulin Lispro 100 UNIT/ML 3 ML VIAL SUBCUT ×2 (11:55→17:04)
--- NOTE | 2023-03-19 13:27 | MHC.CM.ED ---
Received notification that Lisandra at [facility] can accept patient tomorrow morning if repeat Covid swab is negative. Covid test ordered and is pending. Naida CASILLAS booked for 03/20 at 10am. [facility] with chart. Patient, Gurjit Wright RN and Una BRANDON aware. Continue to monitor for d/c needs.
[2023-03-19 13:46] LABS: COVID-19 Test Negative (Negative); IDNOW Serial# 08D9AD1C
[2023-03-19 14:00] VITALS: BP 142/64; PULSE 78; RESP 16; O2SAT 100
[2023-03-19 16:42] LABS: Glucose, Whole Blood 189 mg/dL (60-115)
[2023-03-19 20:29] LABS: Glucose, Whole Blood 117 mg/dL (60-115)
[2023-03-19] MEDS: Atorvastatin Calcium 80 MG TABLET PO (20:38)
[2023-03-19] MEDS: Insulin Glargine,Hum.rec.anlog 100 UNIT/ML 10 ML VIAL 7 UNIT SUBCUT (20:38)
[2023-03-19] MEDS: Doxazosin Mesylate 2 MG TABLET PO (20:39)
[2023-03-19 20:43] VITALS: BP 144/76; PULSE 84; RESP 18; TEMP 36.7; O2SAT 99
[2023-03-20 06:16] VITALS: BP 117/64; PULSE 80; RESP 18; TEMP 36.6; O2SAT 94
[2023-03-20] MEDS: Omeprazole 20 MG CAPSULE.DR PO (06:18)
--- NOTE | 2023-03-20 06:50 | PC.NURSE ---
Patient rested well this 8 shift with no s/sx resp distress and no complaints of pain. pt prefers oob to recliner for comfort, VSS, monitored closely for safety
--- NOTE | 2023-03-20 07:30 | PC.NURSE ---
this automotive service writer assumed care of this pt at 0700. pt sleeping in recliner at the time of assuming care.
[2023-03-20] MEDS: OLANZapine 2.5 MG TABLET PO (08:18)
--- NOTE | 2023-03-20 08:57 | PC.NURSE ---
pt up to bathroom to wash up. ate breakfast in recliner at bedside. he did not want to go into day room for breakfast. pt sitting in recliner reading newspaper at this time. discharge order in place, pt will be picked up by ambulance between 1000 and 1100. pt aware of plan. meds given as documented, denies pain, vss.
--- NOTE | 2023-03-20 10:28 | PC.NURSE ---
ambulance here to picker and sorter load and unload pt. paperwork done.
--- NOTE | 2023-03-20 15:20 | MHC.CM.ED ---
Received telephone call from Melissa Schmidt NP of [facility]. Med list, labs, head CT results clarified with her via telephone.
[2023-03-21 07:19] LABS: Glucose, Whole Blood 111 mg/dL (60-115)
== END 2023-03-20 10:31 | disposition skilled nursing facility (03) ==
PROVIDERS: Emergency Medicine; Nurse Practitioner Family; Physician Assistant; Physician Assistant Medical; Emergency Provider Internal Medicine; PCP Internal Medicine
DX: R55 Syncope and collapse (principal); F01.C0 Vascular dementia, severe, without behavioral disturbance, psychotic disturbance, mood disturbance, and anxiety; N39.0 Urinary tract infection, site not specified; B95.7 Other staphylococcus as the cause of diseases classified elsewhere; R00.0 Tachycardia, unspecified; Z20.822 Contact with and (suspected) exposure to COVID-19; E11.9 Type 2 diabetes mellitus without complications; I10 Essential (primary) hypertension; E78.5 Hyperlipidemia, unspecified; Z79.02 Long term (current) use of antithrombotics/antiplatelets; Z79.4 Long term (current) use of insulin; Z79.899 Other long term (current) drug therapy
CPT/HCPCS: 36415; 70450; 71045; 72125; 80048; 80053; 80076; 81001; 81003; 82947; 83605; 84484; 85025; 87040; 87086; 87088; 87186; 87635; 93005; 96360; 96361; 96372; 96374; 97161; 99285; J2060